=== PATIENT | female | born 1965 | race African-American/Black ===

== ENCOUNTER 2017-01-20 22:01 | Observation (INO) ==
[2017-01-20] MEDS ORDERED: Dextrose Gel 15 GM PO ONE ×2 (22:39→23:07)
[2017-01-20] MEDS ORDERED: *HR* Dextrose 50 % in Water (Syg) 50 ML SYRINGE IVP ONE (23:09)
[2017-01-20] MEDS ORDERED: Ondansetron 4 MG/2 ML VIAL IVP ONE (23:23)
[2017-01-21 00:33] LABS: Basophils % 0.3 %; Eosinophils # 0.1 K/mcL (0.0-0.6); Eosinophils % 0.7 %; Hematocrit 38.2 % (35.3-44.9); Hemoglobin 12.9 g/dL (11.5-15.4); Immature Granulocytes % 0.5 % (0-4); Lymphocytes # 1.9 K/mcL (0.6-4.6); Lymphocytes % 15.3 %; Mean Corpuscular HGB Conc 33.8 g/dL (31.6-35.5); Mean Corpuscular Hemoglobin 26.3 pg (28.0-33.3); Mean Corpuscular Volume 77.8 fL (83.0-100.0); Mean Platelet Volume 9.2 fL (9.4-12.4); Monocytes # 0.5 K/mcL (0.0-1.3); Monocytes % 4.3 %; Platelet Count 344 K/mcL (140-400); Red Blood Count 4.91 M/mcL (3.82-4.97); Red Cell Distribution Width 13.9 % (11.5-14.5); Segmented Neutrophils % 78.9 %
[2017-01-21 00:43] LABS: Alanine Aminotransferase 18 Units/L (0-55); Albumin 3.5 g/dL (3.5-5.0); Albumin/Globulin Ratio 0.8 (1.1-2.2); Alkaline Phosphatase 125 Units/L (38-126); Aspartate Amino Transferase 19 Units/L (5-34); BUN/Creatinine Ratio 12 (6-26); Bilirubin,Direct 0.2 mg/dL (0.0-0.5); Bilirubin,Indirect 0.2 mg/dL (0.0-1.2); Bilirubin,Total 0.4 mg/dL (0.2-1.2); Blood Urea Nitrogen 11 mg/dL (7-20); Calcium 10.3 mg/dL (8.6-10.8); Carbon Dioxide 25 mEq/L (19-29); Chloride 103 mEq/L (98-109); Globulin 4.4 g/dL (2.4-3.5); Glucose 89 mg/dL (70-99); Osmolality,Calculated 287 (280-300); Potassium 3.9 mEq/L (3.5-4.5); Sodium 139 mEq/L (136-145); Total Protein 7.9 g/dL (6.0-8.3); eGFR For African Americans > 60 (> 60); eGFR For Non-African Americans > 60 (> 60)
--- NOTE | 2017-01-21 01:52 | Emergency Department Note ---
Disposition Clinical Impression: Hypoglycemia Disposition: Admitted As Inpatient Condition: Fair Time of Disposition: 03:21 General Adult HPI - General Chief complaint: ED Altered Mental Status Stated complaint: low glucose Time Seen by Provider: 01/20/17 23:07 Source: patient Limitations: no limitations Nursing Notes Reviewed: Yes Vital Signs Reviewed: Yes - History of Present Illness HPI Narrative: Patient is a 51-year-old female who presents to [facility] ED with a chief complaint of low blood sugars. States they have been running low over the week. Her blood sugars normally run anywhere from 300-600. States she just saw a educator senior clinical earlier today and they had her start on glipizide. States she did not have any time to start her medication yet. Her last dose of insulin was 2 days ago. States she has been constantly trying to get her blood sugars back up. Denies any nausea, vomiting, fever or chills. No chest pain or shortness of breath. No abdominal pain. No problems with urination or bowel movements. She has just been generally weak due to all this blood sugar change. States when her blood sugar gets low like this, she has trouble thinking and forming her words. Onset (ago): day(s) Pain Scale: 0 Consistency: constant, Worsening Improves with: nothing Worsens with: nothing Associated symptoms: Reports: denies other symptoms. Denies: cough, fever/ chills, headaches, nausea/vomiting, shortness of breath Treatments Prior to Arrival: none - Related Data Home Medications Medication Instructions Recorded Confirmed Aspirin 81 mg PO DAILY 05/23/15 01/21/17 Atorvastatin Calcium [Lipitor] 20 mg PO HS 05/23/15 01/21/17 Citalopram [CeleXA] 40 mg PO BID 05/23/15 01/21/17 Dicyclomine HCl [Bentyl] 20 mg PO TID PRN 05/23/15 01/21/17 Gabapentin [Neurontin] 800 mg PO QID 05/23/15 01/21/17 Losartan Potassium [Cozaar] 100 mg PO BID 05/23/15 01/21/17 Pantoprazole Sodium [Protonix] 40 mg PO DAILY PRN 05/23/15 01/21/17 Pramipexole Di-HCl [Mirapex] 0.25 mg PO HS 05/23/15 01/21/17 Tramadol HCl [Ultram] 50 mg PO Q6HR PRN 05/23/15 01/21/17 Zolpidem Tartrate [Ambien] 10 mg PO HS 05/23/15 01/21/17 Previous Rx's Medication Instructions Recorded Hydrocodone/Acetaminophen [Magnolia 1 each PO Q4H PRN #10 tablet 06/15/15 5-325 Tablet] Benzonatate [Tessalon] 100 mg PO TID PRN #30 capsule 06/17/16 Ondansetron [Zofran] 8 mg PO Q8HR PRN #14 tablet 06/17/16 Allergies Allergy/AdvReac Type Severity Reaction Status Date / Time latex AdvReac Cramping Verified 01/20/17 22:06 of the Muscles metformin AdvReac Diarrhea Verified 01/20/17 22:06 Sulfa (Sulfonamide AdvReac Vomiting Verified 01/20/17 22:06 Antibiotics) sulfamethoxazole AdvReac Vomiting Verified 01/20/17 22:06 [From Bactrim] trimethoprim [From Bactrim] AdvReac Vomiting Verified 01/20/17 22:06 All systems ED: reviewed and negative except as stated. Past Medical History - Past Medical History Attestation: Yes The following information was validated with the patient. Source: patient Medical history: Reports: diabetes, hypertension Surgical history: Reports: non-contributory Psychiatric history: Reports: no psych history [employer] history: Reports: no [employer] history - Social History Smoking Status: Never smoker Smokeless Tobacco Status: No Alcohol use: Reports: none Drug use: Reports: none Physical Exam - General Limitations: no limitations General appearance: alert - Head Head exam: atraumatic, normocephalic, normal inspection - Eye Eye exam: Present: normal appearance, PERRL, EOMI - ENT ENT exam: normal exam, normal oropharynx, mucous membranes moist - Neck Neck exam: Present: normal inspection, full ROM, trachea midline - Chest Chest inspection: Present: normal inspection, symmetric chest wall rise - Respiratory Respiratory exam: Present: normal lung sounds bilaterally - Cardiovascular Cardiovascular exam: Present: regular rate, normal rhythm, normal heart sounds - Abdominal Exam Abdominal exam: Present: soft, Non-Tender. Absent: tenderness, distention, guarding, rebound, rigidity - Extremities Exam Extremities exam: Present: normal inspection, full ROM. Absent: tenderness, pedal edema - Back Exam Back exam: Present: normal inspection, full ROM. Absent: tenderness - Neurological Exam Neurological exam: Present: alert, oriented X3 - Psychiatric Psychiatric exam: Present: normal affect, normal mood - Skin Skin exam: Present: warm, dry, intact, normal color Course Course Narrative: Patient seen and examined. Low blood sugars. She has had multiple meals today and has not been able to keep her blood sugars up. States they have at the highest been at 1:30 over this last week. IV D50 and glucose gel ordered. Patient's blood sugar upon arrival was 107. After receiving the glucose, her blood sugar got into the 280s. However within a few hours, she was back down to 1:30. Started feeling weak and dizzy and with garbled speech again. Another glucose gel was ordered and she was started on D5 normal saline. I spoke with hospitalist about admission. Patient has been accepted for admission. Vital Signs Temperature 97.3 F L 01/20/17 22:03 Pulse Rate 96 01/20/17 22:03 Respiratory Rate 18 01/20/17 22:03 Blood Pressure 141/91 01/20/17 22:03 O2 Sat by Pulse Oximetry 95 01/20/17 22:03 Temperature 97.3 F L 01/20/17 22:03 Pulse Rate 88 01/21/17 02:57 Respiratory Rate 18 01/21/17 03:02 Blood Pressure 140/97 01/21/17 03:02 O2 Sat by Pulse Oximetry 95 01/21/17 02:57 Oxygen Delivery Oxygen Delivery Room Air Medical Decision Making - Medical Records Medical records reviewed: Yes I reviewed the patient's medical records. - Lab Data Lab results reviewed: Yes I reviewed the patient's lab results. Result diagrams: 01/20/17 22:35 01/20/17 22:35 Lab Results 01/20/17 01/20/17 01/20/17 Range/Units 22:06 22:35 22:35 WBC 12.7 H (4.3-11.1) K/mcL RBC 4.91 (3.82-4.97) M/mcL Hgb 12.9 (11.5-15.4) g/dL Hct 38.2 (35.3-44.9) % MCV 77.8 L (83.0-100.0) fL MCH 26.3 L (28.0-33.3) pg MCHC 33.8 (31.6-35.5) g/dL RDW 13.9 (11.5-14.5) % Plt Count 344 (140-400) K/mcL MPV 9.2 L (9.4-12.4) fL Immature Gran % 0.5 (0-4) % Seg Neutrophils % 78.9 % Lymphocytes % 15.3 % Monocytes % 4.3 % Eosinophils % 0.7 % Basophils % 0.3 % Neutrophils # 10.0 H (1.6-8.9) K/mcL Lymphocytes # 1.9 (0.6-4.6) K/mcL Monocytes # 0.5 (0.0-1.3) K/mcL Eosinophils # 0.1 (0.0-0.6) K/mcL Basophils # 0.0 (0.0-0.2) K/mcL Sodium 139 (136-145) mEq/L Potassium 3.9 (3.5-4.5) mEq/L Chloride 103 (98-109) mEq/L Carbon Dioxide 25 (19-29) mEq/L BUN 11 (7-20) mg/dL Creatinine 0.93 (0.57-1.11) mg/dL Est GFR ( Amer) > 60 (> 60) Est GFR (Non-Af Amer) > 60 (> 60) BUN/Creatinine Ratio 12 (6-26) Glucose 89 (70-99) mg/dL POC Glucose 106 H (58-89) Calculated Osmolality 287 (280-300) Calcium 10.3 (8.6-10.8) mg/dL Total Bilirubin 0.4 (0.2-1.2) mg/dL Direct Bilirubin 0.2 (0.0-0.5) mg/dL Indirect Bilirubin 0.2 (0.0-1.2) mg/dL AST 19 (5-34) Units/L ALT 18 (0-55) Units/L Alkaline Phosphatase 125 (38-126) Units/L Troponin I (0-0.03) ng/mL Serum Total Protein 7.9 (6.0-8.3) g/dL Albumin 3.5 (3.5-5.0) g/dL Globulin 4.4 H (2.4-3.5) g/dL Albumin/Globulin Ratio 0.8 L (1.1-2.2) TSH (0.350-4.840) mcIU/mL 01/20/17 01/20/17 01/20/17 Range/Units 22:35 22:35 23:49 WBC (4.3-11.1) K/mcL RBC (3.82-4.97) M/mcL Hgb (11.5-15.4) g/dL Hct (35.3-44.9) % MCV (83.0-100.0) fL MCH (28.0-33.3) pg MCHC (31.6-35.5) g/dL RDW (11.5-14.5) % Plt Count (140-400) K/mcL MPV (9.4-12.4) fL Immature Gran % (0-4) % Seg Neutrophils % % Lymphocytes % % Monocytes % % Eosinophils % % Basophils % % Neutrophils # (1.6-8.9) K/mcL Lymphocytes # (0.6-4.6) K/mcL Monocytes # (0.0-1.3) K/mcL Eosinophils # (0.0-0.6) K/mcL Basophils # (0.0-0.2) K/mcL Sodium (136-145) mEq/L Potassium (3.5-4.5) mEq/L Chloride (98-109) mEq/L Carbon Dioxide (19-29) mEq/L BUN (7-20) mg/dL Creatinine (0.57-1.11) mg/dL Est GFR ( Amer) (> 60) Est GFR (Non-Af Amer) (> 60) BUN/Creatinine Ratio (6-26) Glucose (70-99) mg/dL POC Glucose 278 H (58-89) Calculated Osmolality (280-300) Calcium (8.6-10.8) mg/dL Total Bilirubin (0.2-1.2) mg/dL Direct Bilirubin (0.0-0.5) mg/dL Indirect Bilirubin (0.0-1.2) mg/dL AST (5-34) Units/L ALT (0-55) Units/L Alkaline Phosphatase (38-126) Units/L Troponin I 0.00 (0-0.03) ng/mL Serum Total Protein (6.0-8.3) g/dL Albumin (3.5-5.0) g/dL Globulin (2.4-3.5) g/dL Albumin/Globulin Ratio (1.1-2.2) TSH 1.930 (0.350-4.840) mcIU/mL 01/21/17 Range/Units 01:59 WBC (4.3-11.1) K/mcL RBC (3.82-4.97) M/mcL Hgb (11.5-15.4) g/dL Hct (35.3-44.9) % MCV (83.0-100.0) fL MCH (28.0-33.3) pg MCHC (31.6-35.5) g/dL RDW (11.5-14.5) % Plt Count (140-400) K/mcL MPV (9.4-12.4) fL Immature Gran % (0-4) % Seg Neutrophils % % Lymphocytes % % Monocytes % % Eosinophils % % Basophils % % Neutrophils # (1.6-8.9) K/mcL Lymphocytes # (0.6-4.6) K/mcL Monocytes # (0.0-1.3) K/mcL Eosinophils # (0.0-0.6) K/mcL Basophils # (0.0-0.2) K/mcL Sodium (136-145) mEq/L Potassium (3.5-4.5) mEq/L Chloride (98-109) mEq/L Carbon Dioxide (19-29) mEq/L BUN (7-20) mg/dL Creatinine (0.57-1.11) mg/dL Est GFR ( Amer) (> 60) Est GFR (Non-Af Amer) (> 60) BUN/Creatinine Ratio (6-26) Glucose (70-99) mg/dL POC Glucose 138 H (58-89) Calculated Osmolality (280-300) Calcium (8.6-10.8) mg/dL Total Bilirubin (0.2-1.2) mg/dL Direct Bilirubin (0.0-0.5) mg/dL Indirect Bilirubin (0.0-1.2) mg/dL AST (5-34) Units/L ALT (0-55) Units/L Alkaline Phosphatase (38-126) Units/L Troponin I (0-0.03) ng/mL Serum Total Protein (6.0-8.3) g/dL Albumin (3.5-5.0) g/dL Globulin (2.4-3.5) g/dL Albumin/Globulin Ratio (1.1-2.2) TSH (0.350-4.840) mcIU/mL - Radiology Data Radiology results reviewed: Yes I reviewed the patient's radiology results. Attestation Statement - Attestation Attestation: I, Kai Babcock MD, personally performed a history and physical exam of the patient and discussed their management with the resident. I reviewed the resident's note and agree with the documented findings, medical decision making , and plan of care. 51-year-old female presents to the emergency department with a complaint of hypoglycemia. Patient is insulin-dependent diabetic and states that for the past week her sugars have been dropping too low. They did recently increase her insulin however a few days ago she decrease it back to the original dosage. Patient states her blood sugar normally runs in the 300s and 400s and when he gets down into the 100s she gets symptomatic. She has had a few episodes over the past several days where he got down to 80s and 60s. When her sugar gets low she states that her speech gets slow and slurred and she gets weak and confused and feels lightheaded and dizzy. On examination patient is a well-developed obese female in no acute distress. She is alert and oriented 3. There is no cyanosis or diaphoresis. Breath sounds are clear and equal bilaterally. Heart regular rate and rhythm. Abdomen is soft and nontender with normal bowel sounds. Labs reviewed. Patient observed in the department for several hours and her blood sugar continued to keep dropping. The hospitalist, Dr. Vaughan, was consulted and accepted admission of the patient.
[2017-01-21] MEDS ORDERED: D5% in 0.9% NACL 1,000 ML IVC SCH (02:00)
[2017-01-21] MEDS ORDERED: Dexamethasone 10 MG/ML VIAL IVP ONE (02:49)
[2017-01-21] MEDS ORDERED: traMADol 50 MG TABLET PO PRN (03:13)
[2017-01-21] MEDS ORDERED: Benzonatate 100 MG CAPSULE PO PRN (03:13)
[2017-01-21] MEDS ORDERED: Naloxone 0.4 MG/ML INJ IVP PRN (03:20)
[2017-01-21] MEDS ORDERED: *HR* OxyCODONE Immed Rel 5 MG TABLET PO PRN (03:20)
[2017-01-21] MEDS ORDERED: *HR* Promethazine 25 MG/ML VIAL IVP PRN (03:20)
[2017-01-21] MEDS ORDERED: D5% in Water 1,000 ML IVC PRN (03:20)
[2017-01-21] MEDS ORDERED: Dextrose Gel 15 GM PO PRN (03:20)
[2017-01-21] MEDS ORDERED: *HR* Dextrose 50 % in Water (Syg) 50 ML SYRINGE IVP PRN (03:20)
[2017-01-21] MEDS ORDERED: Acetaminophen 325 MG TABLET PO PRN (03:20)
[2017-01-21] MEDS ORDERED: *HR* Morphine 2 MG/ML SYRINGE IVP PRN (03:20)
--- NOTE | 2017-01-21 03:34 | Internal Med History&Physical ---
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 (2) Hypoglycemic encephalopathy Current visit: Yes Status: Acute . (3) Multiple episodes of hypoglycemia Current visit: Yes Status: Acute . Internal Medicine - H&P: HPI Chief complaint: Low blood sugars and altered mental status Admitted From: Emergency Dept Plans for Post Hospital Care: Home History of present illness: Ms. Prakash is a 51 year old female admitted to [facility] via the emergency department when she presented with reports of alteration in mental status persistently low blood sugar measurements for the last week or more. Patient has a history of insulin-dependent type 2 diabetes mellitus with associated insulin resistance which had required high doses of long-acting and short acting insulin therapy. In spite of this normal blood sugar trends ranged between 300-600 mg percent she saw her in service educator about the day prior to her presentation to the ED to discuss her problematic blood sugar measurements and symptoms. There is discussion given a possible transition her to oral hypoglycemic therapy and gradually back off from the high-dose insulin so she was receiving. A prescription for glipizide was given to her. Never started. Her last official dose of insulin was 2 days prior to her presentation to the emergency department. Her trends bottomed out as low as 50 mg percent with severe alteration in mental status with slurring of speech, disequilibrium, and delirium. She denied any overt loss of vision swallowing difficulties unilateral weakness loss of bowel or bladder function. She denied any chest nausea vomiting fever chills, with the symptoms. Denied dysuria hematuria pyuria constipation or diarrhea. She does experience a feeling of right abdominal discomfort, that with her current symptoms of hypoglycemia. She denies constipation her stools normally are loose and however in spite of increased oral intake to try to compensate for low blood sugars she experienced a sensation of abdominal bloating, generalized weakness impairment in her thinking and forming of words and unsteadiness of gait. Patient had multiple meals the day of presentation but was unable to keep her blood sugars up. The highest blood sugar measurement obtained by her over the last week was 130 mg percent. In the emergency department the patient received intravenous D50 and glucose gel. Her blood sugar upon arrival to the ED was 107 and era to 280 milligram percent of her within the 2 hours of emergency room evaluation it had declined once again to 130 mg percent. As it declined as she began once again to feel sensations of generalized weakness dizziness and garbled speech. Vital signs are stableafebrile. There is no demonstrable orthostatics as of. Patient was not hypoxic. CBC normal except WBC of 12.7. MCV 77.8. MCH 26.3. Platelets 344,000. Differential showed an increase in neutrophils. Comprehensive metabolic panel normal except for a blood sugar of 106. BUN 11 creatinine 0.93. Hepatic function normal. Troponin 0.00. TSH 1.93 EKG demonstrated normal sinus rhythm with no acute ischemic changes. Workup and treatment progress comprehensively. Attention will be directed to rule out the hyperinsulinism secondary to endogenous as well as exogenous causes. Potential for adrenal insufficiency with poor glucose response is also possible given the recent courses of oral prednisone therapy for upper respiratory infectious symptoms and persisting cough for last several months. She denies any significant indiscretions as relates to medications diet or recreational events. 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 She is status post colectomy, cholecystectomy, hysterectomy. The patient was visited and interviewed and examined. Acutely encephalopathic with evident mild delirium due to rapid cycling of blood glucose measurements, the patient is responsive appropriately. Cumulative laboratory and radiographic data base will be considered and discussed. Pertinent ancillary medical records including ECW and PCI documentation when available was reviewed and considered. Given the patient's presenting concerns, past medical history, clinical findings and symptoms, she is admitted at this time will undergo further evaluation and disposition. Orders were written as per Computerized physician order packer system.......................................................................... .................... Consultative opinion will be sought as clinical circumstances justify. Pain management needs will be addressed. Laboratory /radiographic data base will be updated as appropriate. Studies include: Cultures blood urine, proinsulin, insulin Ab, beta hydroxybut, UA, prolactin, cpk, coags, cardiac injury panel, BNP, amylase, lipase, metabolic and hematologic panel, magnesium, phosphorus, ionized calcium, thyroid panel, lipid profile, A1c C-peptide, CRP, sedimentation rate, random cortisol, UDS, blood gas, lactic acid, B12, folate, iron profile, serologies, etc. Precautions: Aspiration, fall, seizure, delirium protocol/surveillance initiated. Telemetry with continuous hemodynamic monitoring and pulse oximetry initiated. Orthostatic vital signs. Empiric antibiotic coverage: pending diagnostics/culture data. Special studies: CT head/abd/pelvis, MRCP, chest x-ray, telemetry, EKG. Pulmonary toilet: Incentive spirometry. PRN: aerosol bronchodilator, mucolytic, antitussive. Supplemental oxygen. Corticosteroid therapyPRN. CPAP/BiPAP supplemental oxygen delivery PRN. Aerosol Mucomyst therapy PRN Fluid and electrolyte repletion efforts will proceed. Careful attention to fluid balance and renal recovery will be emphasized. Avoidance of nephrotoxic exposure and adverse drug drug interaction in the setting of impaired renal function will be monitored closely. Acute coronary syndrome protocol/surveillance initiated. DVT and PUD prophylaxis initiated: PPI therapy, intermittent pneumatic cuffs/ TEDs. Subcutaneous heparin/Lovenox. Early ambulation will be encouraged. Immunization updates recommended. Influenza and pneumococcal vaccinations as part of ongoing preventative healthcare recommendations strongly recommended. Smoking cessation counseling briefly addressed. Patient is a nonsmoker. Advanced care directive discussion briefly addressed. Patient does not declare any healthcare restrictions at this time. Cardiovascular risk appraisal and cardiovascular risk reduction efforts will be emphasized. Physical /occupational therapy consulted to evaluate patient's functional capacity and progressive mobility as her circumstances permit. Intravenous D50 and intravenous glucagon administration. Initiation of intravenous D10 infusion. Strict input and output daily weight. Close monitoring of fluid and electrolyte balance as well as metabolic acid-base events. Sliding scale /basal, nutritional insulin coverage withheld and stabilization of glucose pending. ADA dietary restraint and scheduled and as-needed fingerstick glucose assessments were initiated. Nutrition/diabetes education counseling may be considered as circumstances justify. Outpatient medication schedules will be reviewed, confirmed and facilitated as appropriate. Reconciliation of home treatments including adjustments, substitutions and reintroduction into the treatment regimen will address necessary maintenance therapies for chronic pre-existing medical conditions. Plan of care has been reviewed and discussed in detail with the patient. Questions addressed. Hospital course dictated by clinical findings, treatment response and potential consultative interventions. Patient is a risk for further acute clinical decline due to her findings, chief complaints and comorbid conditions. Condition is serious. Prognosis is guarded. CODE STATUS is full. Past Med Surg Social Fam HX - Past Medical History Source: old records reviewed Medical history: arthritis, asthma, diabetes, GERD (Gastroparesis. Man's esophagus. Diverticulosis coli.), hyperlipidemia, hypertension, renal disease ( CKD. Iron deficiency anemia. Urinary retention. Proteinuria.), other ( Functional abdominal pain. Splenomegaly. Chronic musculoskeletal pain. Restless leg syndrome. Diabetic peripheral neuropathy. Irritable bowel syndrome.) Psychiatric history: anxiety, depression, other - Past Surgical History Surgical History: appendectomy, cholecystectomy, hysterectomy, SONDRA/BSO, other - Social History Smoking Status: Never smoker Smokeless Tobacco Status: No Alcohol use: none Drug use: none Occupational status: retired Current living situation: Home, With Family Activity Level: Independent ambulation, Mostly sedentary Recent Out of Country Travel Within the Last 8 Weeks: No Exposure or Possible Exposure to Illness During Travel: No - Family History Mother Living Status: Hx Family Cardiac Disorders: Yes Hx Family Endocrine Disorder: Yes (diabetes) Father Living Status: Hx Family Cardiac Disorders: Yes (MYOCARDIAL INFARCTION.) Brother Age: 56 Hx Family Cardiac Disorders: Yes Hx Family Genitourinary Disorders: Yes Sister Living Status: Age at : 56 Internal Medicine - H&P: Meds Aspirin 81 mg PO DAILY 05/23/15 [History] Atorvastatin Calcium [Lipitor] 20 mg PO HS 05/23/15 [History] Citalopram [CeleXA] 40 mg PO BID 05/23/15 [History] Dicyclomine HCl [Bentyl] 20 mg PO TID PRN 05/23/15 [History] Gabapentin [Neurontin] 800 mg PO QID 05/23/15 [History] Losartan Potassium [Cozaar] 100 mg PO BID 05/23/15 [History] Pantoprazole Sodium [Protonix] 40 mg PO DAILY PRN 05/23/15 [History] Pramipexole Di-HCl [Mirapex] 0.25 mg PO HS 05/23/15 [History] Tramadol HCl [Ultram] 50 mg PO Q6HR PRN 05/23/15 [History] Zolpidem Tartrate [Ambien] 10 mg PO HS 05/23/15 [History] Hydrocodone/Acetaminophen [[place] 5-325 Tablet] 1 each PO Q4H PRN #10 tablet [Rx] Benzonatate [Tessalon] 100 mg PO TID PRN #30 capsule 06/17/16 [Rx] Ondansetron [Zofran] 8 mg PO Q8HR PRN #14 tablet 06/17/16 [Rx] Allergies latex Adverse Reaction (Verified 01/20/17 22:06) Cramping of the Muscles metformin Adverse Reaction (Verified 01/20/17 22:06) Diarrhea Sulfa (Sulfonamide Antibiotics) Adverse Reaction (Verified 01/20/17 22:06) Vomiting sulfamethoxazole [From Bactrim] Adverse Reaction (Verified 01/20/17 22:06) Vomiting trimethoprim [From Bactrim] Adverse Reaction (Verified 01/20/17 22:06) Vomiting All Systems PM: A 10-system review of systems was performed and is negative for pertinent findings except as documented above in the HPI. Allergies Allergy/AdvReac Type Severity Reaction Status Date / Time latex AdvReac Cramping Verified 01/20/17 22:06 of the Muscles metformin AdvReac Diarrhea Verified 01/20/17 22:06 Sulfa (Sulfonamide AdvReac Vomiting Verified 01/20/17 22:06 Antibiotics) sulfamethoxazole AdvReac Vomiting Verified 01/20/17 22:06 [From Bactrim] trimethoprim [From Bactrim] AdvReac Vomiting Verified 01/20/17 22:06 Patient Problems (Last Updated 01/21/17 @ 03:34 by Dean Vaughan MD) Cough (Acute Medical) R05 Chest pain (Acute Medical) R07.9 Diabetes (Acute Medical) E11.9 Hyperlipidemia (Acute Medical) E78.5 Hypertension (Acute Medical) I10 Obesity (Chronic Medical) E66.9 Abnormal EKG (Acute Medical) R94.31 Asthma exacerbation (Acute Medical) J45.901 Hypoglycemia (Acute Medical) E16.2 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 (Acute Medical) E16.1 Hypoglycemic encephalopathy (Acute Medical) E16.2 Multiple episodes of hypoglycemia (Acute Medical) E16.2 Bronchitis (Inactive Medical) Bronchitis (Inactive Medical) Bronchitis, acute (Inactive Medical) J20.9 Bunion of great toe of left foot (Inactive Medical) Dehydration (Inactive Medical) Head pain (Inactive Medical) Hyperglycemia (Inactive Medical) Injury of foot, left (Inactive Medical) Nausea (Inactive Medical) R11.0 Pharyngitis (Inactive Medical) J02.9 UTI (urinary tract infection) (Inactive Medical) N39.0 - Constitutional Constitutional: as per HPI, fatigue, falls, lethargy, malaise, weakness, other, no chills, no fever(s), no night sweats - EENT Eyes: as per HPI, blurry vision, no change in vision, no discharge, no pain, no photophobia Ears: as per HPI, no ear discharge, no ear pain, no tinnitus Nose, mouth and throat: as per HPI, other, no dysphagia, no nasal discharge, no neck pain, no sore throat - Cardiovascular Cardiovascular ROS IM: as per HPI, lightheadedness, syncope, other, no chest pain, no diaphoresis, no dyspnea, no palpitations - Respiratory Respiratory: as per HPI, no cough, no dyspnea, no wheezing, no excessive phlegm production - Gastrointestinal Gastrointestinal: as per HPI, abdominal pain, bloating, loose stools, other, no diarrhea, no hematemesis, no hematochezia, no melena, no nausea, no vomiting - Genitourinary Genitourinary: as per HPI, no change in urinary stream, no dysuria, no flank pain, no hematuria - Musculoskeletal Musculoskeletal ROS IM: as per HPI, arthralgias, myalgias, no numbness, no tingling - Integumentary Integumentary IM: as per HPI, no rash, no unusual bruising - Neurological Neurological ROS: as per HPI, abnormal speech, confusion, disequilibrium, dizziness, frequent falls, memory loss, weakness, other, no convulsions, no focal weakness, no numbness, no tingling, no tremor(s) - Psychiatric Psychiatric: as per HPI - Endocrine Endocrine IM: as per HPI, fatigue, other - Hematologic/Lymphatic Hematologic/Lymphatic: as per HPI, no easy bruising - Allergic/Immunologic Allergic/Immunologic: as per HPI - Constitutional Vitals: Temp Pulse Resp BP Pulse Ox 97.3 F L 88 18 140/97 95 01/20/17 22:03 01/21/17 02:57 01/21/17 03:02 01/21/17 03:02 01/21/17 02:57 Vital Signs Temp Pulse Resp BP Pulse Ox 01/21/17 03:02 18 140/97 01/21/17 02:57 88 20 133/93 95 01/21/17 02:33 91 20 153/97 95 01/21/17 00:48 92 18 143/92 99 01/20/17 23:15 89 24 127/89 95 01/20/17 22:03 97.3 F L 96 18 141/91 95 Intake and Output 01/20/17 01/20/17 01/21/17 15:59 23:59 07:59 Other: Weight 113.398 kg Blood Glucose* 278 138 General appearance: Present: mild distress, A&O X 3, morbidly obese, answers questions appropriately Exam: Lethargic. Poorly attentive due to primary condition. Garbled to slurring of speech. Difficulty with concentration c/w delirium. - Head Head exam: Present: atraumatic, normal inspection, normocephalic - Eye Eye exam: Present: EOMI, PERRL, conjuntiva pink, sclera anicteric Pupils: Present: normal accommodation, PERRL - ENT ENT exam: Present: mucous membranes moist, normal oropharynx - Neck Neck exam general surgery: Present: full ROM, supple, trachea midline. Absent: lymphadenopathy, nuchal rigidity - Respiratory Respiratory exam: Present: decreased breath sounds, CTAB. Absent: accessory muscle use, rales, rhonchi, wheezes - Cardiovascular Cardiovascular exam: Present: distant heart sounds, RRR, +S1, +S2. Absent: diastolic murmur, gallop, rubs, systolic murmur - GI/Abdominal GI/Abdominal exam: Present: diminished bowel sounds, distended, guarding, soft, tenderness (RUQ > RLQ tenderness.), no peritoneal signs - Extremities Exam Extremities exam: Present: full ROM, warm, radial pulses palpable and symetrical. Absent: calf tenderness, cyanotic, pedal edema - Neurological Exam Neurological exam: Present: alert, altered, CN II-XII intact, oriented X3, no focal deficits. Absent: pronater drift, facial droop, speech deficit - Expanded Neurological Exam Neurological exam expanded: Present: ataxia, inattentive, protecting the airway. Absent: expressive aphasia, receptive aphasia Patient oriented to: Present: person, place, time Speech: Present: garbled, slurred Cranial Nerves: EOM's intact PM: Normal, gag reflex PM: Normal, nystagmus PM: Normal, tongue deviation PM: Normal Coma Scale Eye Opening: Spontaneous Coma Scale Motor Response: Obeys Commands Coma Scale Verbal Response: Inappropriate Coma Scale Total: 13 - Psychiatric Psychiatric exam: Present: normal affect, normal mood - Skin Skin exam: Present: dry, intact, warm. Absent: petechiae, rash, urticaria, vesicles Internal Med - H&P Results - Labs CBC & Chem 7: 01/20/17 22:35 01/20/17 22:35 Labs: Vital Signs Temp Pulse Resp BP Pulse Ox 01/21/17 03:02 18 140/97 01/21/17 02:57 88 20 133/93 95 01/21/17 02:33 91 20 153/97 95 01/21/17 00:48 92 18 143/92 99 01/20/17 23:15 89 24 127/89 95 01/20/17 22:03 97.3 F L 96 18 141/91 95 Intake and Output 01/20/17 01/20/17 01/21/17 15:59 23:59 07:59 Other: Weight 113.398 kg Blood Glucose* 278 138 Abnormal lab results WBC 12.7 K/mcL (4.3-11.1) H 01/20/17 22:35 MCV 77.8 fL (83.0-100.0) L 01/20/17 22:35 MCH 26.3 pg (28.0-33.3) L 01/20/17 22:35 MPV 9.2 fL (9.4-12.4) L 01/20/17 22:35 Neutrophils # 10.0 K/mcL (1.6-8.9) H 01/20/17 22:35 POC Glucose 138 (58-89) H 01/21/17 01:59 Globulin 4.4 g/dL (2.4-3.5) H 01/20/17 22:35 Albumin/Globulin Ratio 0.8 (1.1-2.2) L 01/20/17 22:35 Laboratory Last Values WBC 12.7 K/mcL (4.3-11.1) H 01/20/17 22:35 RBC 4.91 M/mcL (3.82-4.97) 01/20/17 22:35 Hgb 12.9 g/dL (11.5-15.4) 01/20/17 22:35 Hct 38.2 % (35.3-44.9) 01/20/17 22: MCV 77.8 fL (83.0-100.0) L 01/20/17 22:35 MCH 26.3 pg (28.0-33.3) L 01/20/17 22:35 MCHC 33.8 g/dL (31.6-35.5) 01/20/17 22:35 RDW 13.9 % (11.5-14.5) 01/20/17 22:35 Plt Count 344 K/mcL (140-400) 01/20/17 22:35 MPV 9.2 fL (9.4-12.4) L 01/20/17 22:35 Immature Gran % 0.5 % (0-4) 01/20/17 22: Seg Neutrophils % 78.9 % 01/20/17 22:35 Lymphocytes % 15.3 % 01/20/17:35 Monocytes % 4.3 % 01/20/17:35 Eosinophils % 0.7 % 01/20/17 22:35 Basophils % 0.3 % 01/20/17 22:35 Neutrophils # 10.0 K/mcL (1.6-8.9) H 01/20/17 22:35 Lymphocytes # 1.9 K/mcL (0.6-4.6) 01/20/17 22:35 Monocytes # 0.5 K/mcL (0.0-1.3) 01/20/17 22:35 Eosinophils # 0.1 K/mcL (0.0-0.6) 01/20/17: Basophils # 0.0 K/mcL (0.0-0.2) 01/20/17 22:35 Sodium 139 mEq/L (136-145) 01/20/17 22:35 Potassium 3.9 mEq/L (3.5-4.5) 01/20/17 22:35 Chloride 103 mEq/L (98-109) 01/20/17 22:35 Carbon Dioxide 25 mEq/L (19-29) 01/20/17 22:35 BUN 11 mg/dL (7-20) 01/20/17 22:35 Creatinine 0.93 mg/dL (0.57-1.11) 01/20/17 22:35 Est GFR ( Amer) > 60 (> 60) 01/20/17 22:35 Est GFR (Non-Af Amer) > 60 (> 60) 01/20/17 22:35 BUN/Creatinine Ratio 12 (6-26) 01/20/17 22:35 Glucose 89 mg/dL (70-99) 01/20/17 22:35 POC Glucose 138 (58-89) H 01/21/17 01:59 Calculated Osmolality 287 (280-300) 01/20/17 22:35 Calcium 10.3 mg/dL (8.6-10.8) 01/20/17 22:35 Total Bilirubin 0.4 mg/dL (0.2-1.2) 01/20/17 22:35 Direct Bilirubin 0.2 mg/dL (0.0-0.5) 01/20/17 22:35 Indirect Bilirubin 0.2 mg/dL (0.0-1.2) 01/20/17 22:35 AST 19 Units/L (5-34) 01/20/17 22:35 ALT 18 Units/L (0-55) 01/20/17 22:35 Alkaline Phosphatase 125 Units/L (38-126) 01/20/17 22:35 Troponin I 0.00 ng/mL (0-0.03) 01/20/17 22:35 Serum Total Protein 7.9 g/dL (6.0-8.3) 01/20/17 22:35 Albumin 3.5 g/dL (3.5-5.0) 01/20/17 22:35 Globulin 4.4 g/dL (2.4-3.5) H 01/20/17 22:35 Albumin/Globulin Ratio 0.8 (1.1-2.2) L 01/20/17 22:35 TSH 1.930 mcIU/mL (0.350-4.840) 01/20/17 22:35 - Attending Attestation Allergies latex Adverse Reaction (Verified 01/20/17 22:06) Cramping of the Muscles metformin Adverse Reaction (Verified 01/20/17 22:06) Diarrhea Sulfa (Sulfonamide Antibiotics) Adverse Reaction (Verified 01/20/17 22:06) Vomiting sulfamethoxazole [From Bactrim] Adverse Reaction (Verified 01/20/17 22:06) Vomiting trimethoprim [From Bactrim] Adverse Reaction (Verified 01/20/17 22:06) Vomiting Home Medications Medication Instructions Recorded Confirmed Type Aspirin 81 mg PO DAILY 05/23/15 01/21/17 History Atorvastatin Calcium [Lipitor] 20 mg PO HS 05/23/15 01/21/17 History Citalopram [CeleXA] 40 mg PO BID 05/23/15 01/21/17 History Dicyclomine HCl [Bentyl] 20 mg PO TID PRN 05/23/15 01/21/17 History Gabapentin [Neurontin] 800 mg PO QID 05/23/15 01/21/17 History Losartan Potassium [Cozaar] 100 mg PO BID 05/23/15 01/21/17 History Pantoprazole Sodium [Protonix] 40 mg PO DAILY PRN 05/23/15 01/21/17 History Pramipexole Di-HCl [Mirapex] 0.25 mg PO 05/23/15 01/21/17 History Tramadol HCl [Ultram] 50 mg PO Q6HR PRN 05/23/15 01/21/17 History Zolpidem Tartrate [Ambien] 10 mg PO 05/23/15 01/21/17 History I & O 01/18/17 01/19/17 01/20/17 01/21/17 23:59 23:59 23:59 23:59 Weight 113.398 kg Other: Blood Glucose* 278 138 Medications Acetaminophen (Tylenol) 650 mg PO Q6HR PRN PRN Reason: Mild Pain (1-3) Stop: 07/23/17 03:21 Aspirin (Aspirin) 81 mg PO DAILY [facility] Stop: 07/23/17 09:01 Benzonatate (Tessalon) 100 mg PO TID PRN PRN Reason: Cough Stop: 07/23/17 03:14 Citalopram Hydrobromide (Celexa) 40 mg PO BID [facility] Stop: 07/23/17 09:01 Dextrose/Water (Dextrose 50% (Syg)) 25 ml IVP AD PRN PRN Reason: Hypoglycemia Stop: 07/23/17 03:21 Docusate Sodium (Colace) 100 mg PO BID PRN PRN Reason: Constipation Stop: 07/23/17 03:21 Gabapentin (Neurontin) 800 mg PO QID [facility] Stop: 07/23/17 09:01 Glucagon (Glucagen) 1 mg IM ONCE PRN PRN Reason: Hypoglycemia Stop: 07/23/17 03:21 Glucose (Gluctose) 30 gm PO ONCE PRN PRN Reason: Hypoglycemia Stop: 07/23/17 03:21 Dextrose (Dextrose 5%) 1,000 mls @ 100 mls/hr IVC .Q10H PRN PRN Reason: HYPOGLYCEMIA Stop: 07/23/17 03:21 Insulin Human Lispro (Humalog) 0 units SQ HS [facility] PRN Reason: Protocol Stop: 07/23/17 21:01 Insulin Human Lispro (Humalog) 0 units SQ TIDAC [facility] PRN Reason: Protocol Stop: 07/23/17 07:31 Losartan Potassium (Cozaar) 100 mg PO DAILY [facility] PRN Reason: Protocol Stop: 07/23/17 09:01 Morphine Sulfate (Morphine Sulfate) 2 mg IVP Q4HR PRN PRN Reason: Severe Pain (7-10) Stop: 07/23/17 03:21 Naloxone HCl (Narcan) 0.4 mg IVP Q2MIN PRN PRN Reason: Opioid Reversal Stop: 07/23/17 03:21 Oxycodone HCl (Roxicodone) 5 mg PO Q6HR PRN PRN Reason: Moderate Pain (4-6) Stop: 07/23/17 03:21 Pramipexole Dihydrochloride (Mirapex) 0.25 mg PO HS [facility] Stop: 07/23/17 21:01 Promethazine HCl (Phenergan) 12.5 mg IVP Q6HR PRN PRN Reason: Nausea And Vomiting Stop: 07/23/17 03:21 Simvastatin (Zocor) 40 mg PO HS [facility] Stop: 07/23/17 21:01 Tramadol HCl (Ultram) 50 mg PO Q6HR PRN PRN Reason: Pain Stop: 07/23/17 03:14 Zolpidem Tartrate (Ambien) 10 mg PO HS [facility] PRN Reason: Protocol Stop: 07/23/17 21:01 Discontinued Medications Dexamethasone (Decadron) 10 mg IVP DAILY [facility] Stop: 07/23/17 09:01 Dexamethasone (Decadron) 10 mg IVP ONCE ONE Stop: 01/21/17 02:50 Last Admin: 01/21/17 02:53 Dose: 10 mg Dextrose/Water (Dextrose 50% (Syg)) 50 ml IVP NOW ONE Stop: 01/20/17 23:10 Last Admin: 01/20/17 23:16 Dose: 50 ml Glucose (Gluctose) Confirm Administered Dose 15 gm PO .STK-MED ONE Stop: 01/20/17 22:40 Last Admin: 01/20/17 22:43 Dose: 15 gm Glucose (Gluctose) 15 gm PO ONCE ONE Stop: 01/20/17 23:08 Last Admin: 01/20/17 23:10 Dose: Dextrose/Sodium Chloride (D5% And 0.9% Nacl 1000 Ml) 1,000 mls @ 125 mls/hr IVC .Q8H [facility] Stop: 07/23/17 02:01 Last Admin: 01/21/17 02:42 Dose: 125 mls/hr Ondansetron HCl (Zofran) 4 mg IVP ONCE ONE PRN Reason: Protocol Stop: 01/20/17 23:24 Last Admin: 01/20/17 23:40 Dose: 4 mg Orders 01/20/17 22:06 POC Glucometer Test [POC] Routine 01/20/17 22:39 Dextrose Gel [Gluctose] 15 gm PO .STK-MED ONE 01/20/17 23:07 Dextrose Gel [Gluctose] 15 gm PO ONCE ONE 01/20/17 23:09 IV insertion - peripheral [RC] NOW Dextrose 50 % in Water (Syg) [Dextrose 50% (Syg)] 50 ml IVP NOW ONE 01/20/17 23:23 Ondansetron [Zofran] 4 mg IVP ONCE ONE 01/20/17 23:49 POC Glucometer Test [POC] Routine 01/21/17 00:11 12 lead ECG assessment [RC] NOW Cardiac monitoring [RC] .ONCE Glucose, blood poc measurement [RC] .ONCE NPO (Nursing Order) [RC] NOW Saline lock [RC] .ONCE Vital Signs Assessment [RC] PROTOCOL Basic Metabolic Panel Stat Comment: Specimen: Send someone from the department to collect Complete Blood Count [HEME] Stat Comment: Specimen: Send someone from the department to collect Hepatic Panel Stat Comment: Specimen: Send someone from the department to collect Troponin I Stat Comment: Specimen: Send someone from the department to collect ECG 12 lead ECG [ECG] Stat Mode Of Transportation: Ambulatory Reason For Exam: altered mental status Exam Performed At:: [facility] 01/21/17 00:12 Thyroid Stimulating Hormone Stat Comment: Specimen: Send someone from the department to collect 01/21/17 01:56 POC Glucometer Test [POC] Stat 01/21/17 01:59 POC Glucometer Test [POC] Routine 01/21/17 02:00 D5% in 0.9% NACL [D5% And 0.9% Nacl 1000 Ml] 1,000 ml IVC 125 mls/hr 01/21/17 02:[address] Stat Comment: Reason for Visit: persistent hypoglycemia 01/21/17 02:49 Dexamethasone [Decadron] 10 mg IVP ONCE ONE 01/21/17 03:08 Apply anti-embolic stockings [RC] .NOW Aspiration precautions [RC] .WITH MEALS Falls precautions (Francis-Douglass [RC] ONCE Incentive Spirometry [RC] .6 TIMES PER HR WHILE AWAKE Seizure precautions [RC] .ONCE Amylase Routine Specimen: Send someone from the department to collect Comment: C-Reactive Protein Routine Specimen: Send someone from the department to collect Comment: Cortisol Fr,Ur Random or 24hr Routine Specimen: Pre-Collection Label Comment: Cortisol Fr Type: Random Urine Cortisol,Random Stat Specimen: Send someone from the department to collect Comment: Creatine Kinase Routine Specimen: Send someone from the department to collect Comment: Drug Screen, Urine [UCHEM] Stat Specimen: Pre-Collection Label Comment: Hgb A1C Stat Specimen: Send someone from the department to collect Comment: Insulin Antibody Routine Specimen: Send someone from the department to collect Comment: Insulin, Total and Free Stat Specimen: Send someone from the department to collect Comment: Lactate Dehydrogenase Routine Specimen: Send someone from the department to collect Comment: Lactic Acid ([facility] Only) Stat Specimen: Send someone from the department to collect Comment: Lipase Routine Specimen: Send someone from the department to collect Comment: Prolactin Stat Specimen: Send someone from the department to collect Comment: 01/21/17 03:13 Benzonatate [Tessalon] 100 mg PO TID PRN TraMADol [Ultram] 50 mg PO Q6HR PRN 01/21/17 03:20 Glucose, blood poc measurement [RC] ACHS Vital Signs Assessment [RC] Q4H Consult to Shuttler Car [CONS] Routine Comment: @ 100 MLS/HR [prn Hypoglycemia] D5% in Water [Dextrose 5%] 1,000 ml IVC 100 mls/ hr Acetaminophen [Tylenol] 650 mg PO Q6HR PRN Dextrose 50 % in Water (Syg) [Dextrose 50% (Syg)] 25 ml IVP AD PRN Dextrose Gel [Gluctose] 30 gm PO ONCE PRN Docusate [Colace] 100 mg PO BID PRN Glucagon, Human Recombinant [GlucaGen] 1 mg IM ONCE PRN Morphine [Morphine Sulfate] 2 mg IVP Q4HR PRN Naloxone [Narcan] 0.4 mg IVP Q2MIN PRN OxyCODONE Immed Rel [Roxicodone] 5 mg PO Q6HR PRN Promethazine [Phenergan] 12.5 mg IVP Q6HR PRN Resuscitation Status: Active [RES] Routine Resuscitation Status: Full Code Comment: 01/21/17 03:21 Bed rest [RC] .CONT Physician Instructions: Bed rest w/bathroom privileges [RC] .PRN Cardiac Monitoring Med/Surg [RC] .CONT Telemetry Reason: Stroke/Syncope/TIA Continuous pulse oximetry [RC] CONT Comment: Hypoglycemia Treatment Orders [RC] .once Measure intake and output [RC] QSHIFT Measure weight [RC] DAILY Notify provider [RC] once Physician Instructions: Peripheral IV [RC] CONT Placement to Observation Routine Physician Instructions: Reason for Visit: Persistent hypoglycemia Is VTE Prophylaxis Indicated?: Yes RT has an order or consult [RC] NOW 01/21/17 04:00 Ammonia AM 0400 Specimen: Send someone from the department to collect Comment: C-Peptide AM 0400 Specimen: Send someone from the department to collect Comment: Lipid Panel AM 0400 Specimen: Send someone from the department to collect Comment: Magnesium AM 0400 Specimen: Send someone from the department to collect Comment: Phosphorous AM 0400 Specimen: Send someone from the department to collect Comment: Urinalysis reflex Microscopic [URIN] AM 0400 Specimen: Send someone from the department to collect Comment: 01/21/17 07:30 Insulin LISPRO [HumaLOG] See Protocol SQ TIDAC 01/21/17 09:00 Aspirin 81 mg PO DAILY Citalopram [CeleXA] 40 mg PO BID Dexamethasone [Decadron] 10 mg IVP DAILY Gabapentin [Neurontin] 800 mg PO QID Losartan [Cozaar] 100 mg PO DAILY 01/21/17 21:00 Atorvastatin Calcium [Lipitor] 20 mg PO HS How will this medication be supplied?: Pharmacy to Subsitute Insulin LISPRO [HumaLOG] See Protocol SQ HS Pramipexole [Mirapex] 0.25 mg PO HS Zolpidem [Ambien] 10 mg PO HS 01/21/17 Breakfast Diabetic Diet Diet Modifications: Patient Problems (Last Updated 01/21/17 @ 01:52 by Megan Thompson DO) Hypoglycemia (Acute) Vital Signs Temp Pulse Resp BP Pulse Ox 01/21/17 03:02 18 140/97 01/21/17 02:57 88 20 133/93 95 01/21/17 02:33 91 20 153/97 95 01/21/17 00:48 92 18 143/92 99 01/20/17 23:15 89 24 127/89 95 01/20/17 22:03 97.3 F L 96 18 141/91 95 Laboratory Results 01/20/17 01/20/17 01/20/17 Range/Units 22:06 22:35 22:35 WBC 12.7 H (4.3-11.1) K/mcL RBC 4.91 (3.82-4.97) M/mcL Hgb 12.9 (11.5-15.4) g/dL Hct 38.2 (35.3-44.9) % MCV 77.8 L (83.0-100.0) fL MCH 26.3 L (28.0-33.3) pg MCHC 33.8 (31.6-35.5) g/dL RDW 13.9 (11.5-14.5) % Plt Count 344 (140-400) K/mcL MPV 9.2 L (9.4-12.4) fL Immature Gran % 0.5 (0-4) % Seg Neutrophils % 78.9 % Lymphocytes % 15.3 % Monocytes % 4.3 % Eosinophils % 0.7 % Basophils % 0.3 % Neutrophils # 10.0 H (1.6-8.9) K/mcL Lymphocytes # 1.9 (0.6-4.6) K/mcL Monocytes # 0.5 (0.0-1.3) K/mcL Eosinophils # 0.1 (0.0-0.6) K/mcL Basophils # 0.0 (0.0-0.2) K/mcL Sodium 139 (136-145) mEq/L Potassium 3.9 (3.5-4.5) mEq/L Chloride 103 (98-109) mEq/L Carbon Dioxide 25 (19-29) mEq/L BUN 11 (7-20) mg/dL Creatinine 0.93 (0.57-1.11) mg/dL Est GFR ( Amer) > 60 (> 60) Est GFR (Non-Af Amer) > 60 (> 60) BUN/Creatinine Ratio 12 (6-26) Glucose 89 (70-99) mg/dL POC Glucose 106 H (58-89) Calculated Osmolality 287 (280-300) Calcium 10.3 (8.6-10.8) mg/dL Total Bilirubin 0.4 (0.2-1.2) mg/dL Direct Bilirubin 0.2 (0.0-0.5) mg/dL Indirect Bilirubin 0.2 (0.0-1.2) mg/dL AST 19 (5-34) Units/L ALT 18 (0-55) Units/L Alkaline Phosphatase 125 (38-126) Units/L Troponin I (0-0.03) ng/mL Serum Total Protein 7.9 (6.0-8.3) g/dL Albumin 3.5 (3.5-5.0) g/dL Globulin 4.4 H (2.4-3.5) g/dL Albumin/Globulin Ratio 0.8 L (1.1-2.2) TSH (0.350-4.840) mcIU/mL 01/20/17 01/20/17 01/20/17 Range/Units 22:35 22:35 23:49 WBC (4.3-11.1) K/mcL RBC (3.82-4.97) M/mcL Hgb (11.5-15.4) g/dL Hct (35.3-44.9) % MCV (83.0-100.0) fL MCH (28.0-33.3) pg MCHC (31.6-35.5) g/dL RDW (11.5-14.5) % Plt Count (140-400) K/mcL MPV (9.4-12.4) fL Immature Gran % (0-4) % Seg Neutrophils % % Lymphocytes % % Monocytes % % Eosinophils % % Basophils % % Neutrophils # (1.6-8.9) K/mcL Lymphocytes # (0.6-4.6) K/mcL Monocytes # (0.0-1.3) K/mcL Eosinophils # (0.0-0.6) K/mcL Basophils # (0.0-0.2) K/mcL Sodium (136-145) mEq/L Potassium (3.5-4.5) mEq/L Chloride (98-109) mEq/L Carbon Dioxide (19-29) mEq/L BUN (7-20) mg/dL Creatinine (0.57-1.11) mg/dL Est GFR ( Amer) (> 60) Est GFR (Non-Af Amer) (> 60) BUN/Creatinine Ratio (6-26) Glucose (70-99) mg/dL POC Glucose 278 H (58-89) Calculated Osmolality (280-300) Calcium (8.6-10.8) mg/dL Total Bilirubin (0.2-1.2) mg/dL Direct Bilirubin (0.0-0.5) mg/dL Indirect Bilirubin (0.0-1.2) mg/dL AST (5-34) Units/L ALT (0-55) Units/L Alkaline Phosphatase (38-126) Units/L Troponin I 0.00 (0-0.03) ng/mL Serum Total Protein (6.0-8.3) g/dL Albumin (3.5-5.0) g/dL Globulin (2.4-3.5) g/dL Albumin/Globulin Ratio (1.1-2.2) TSH 1.930 (0.350-4.840) mcIU/mL 01/21/17 Range/Units 01:59 WBC (4.3-11.1) K/mcL RBC (3.82-4.97) M/mcL Hgb (11.5-15.4) g/dL Hct (35.3-44.9) % MCV (83.0-100.0) fL MCH (28.0-33.3) pg MCHC (31.6-35.5) g/dL RDW (11.5-14.5) % Plt Count (140-400) K/mcL MPV (9.4-12.4) fL Immature Gran % (0-4) % Seg Neutrophils % % Lymphocytes % % Monocytes % % Eosinophils % % Basophils % % Neutrophils # (1.6-8.9) K/mcL Lymphocytes # (0.6-4.6) K/mcL Monocytes # (0.0-1.3) K/mcL Eosinophils # (0.0-0.6) K/mcL Basophils # (0.0-0.2) K/mcL Sodium (136-145) mEq/L Potassium (3.5-4.5) mEq/L Chloride (98-109) mEq/L Carbon Dioxide (19-29) mEq/L BUN (7-20) mg/dL Creatinine (0.57-1.11) mg/dL Est GFR ( Amer) (> 60) Est GFR (Non-Af Amer) (> 60) BUN/Creatinine Ratio (6-26) Glucose (70-99) mg/dL POC Glucose 138 H (58-89) Calculated Osmolality (280-300) Calcium (8.6-10.8) mg/dL Total Bilirubin (0.2-1.2) mg/dL Direct Bilirubin (0.0-0.5) mg/dL Indirect Bilirubin (0.0-1.2) mg/dL AST (5-34) Units/L ALT (0-55) Units/L Alkaline Phosphatase (38-126) Units/L Troponin I (0-0.03) ng/mL Serum Total Protein (6.0-8.3) g/dL Albumin (3.5-5.0) g/dL Globulin (2.4-3.5) g/dL Albumin/Globulin Ratio (1.1-2.2) TSH (0.350-4.840) mcIU/mL Assessments/Treatments 12 lead ECG assessment Start: 01/21/17 00: 11 Freq: NOW Status: Complete Document 01/21/17 00:48 AMW (Rec: 01/21/17 00:49 AMW [place] [id number]) EKG Additional Comment Pt refused. Cardiac monitoring Start: 01/20/17 22: 06 Freq: Status: Complete Document 01/20/17 22:18 CRS (Rec: 01/20/17 22:33 CRS [id number]) Cardiac Monitoring Heart Rate 93 Monitoring Method Telemetry Rhythm Sinus Rhythm Monitor Number ed 5 ED Altered Mental Status Assessment Start: 01/20/17 22: 06 Freq: Status: Complete Document 01/20/17 22:18 CRS (Rec: 01/20/17 22:33 CRS [id number]) Altered Mental Status Sepsis Infection Criteria Present none Sepsis SIRS Criteria none Sepsis Screen No Definite Risk Symptoms/Complaint Weakness Onset 1 week Timing Confirmed By Spouse Severity Moderate Consistency of Symptoms Waxing and Waning Associated Symptoms Diaphoresis Nausea/Vomiting Weakness Treatment Prior to Arrival Glucose Blood Glucose* 106 Level Of Consciousness Awake Alert Appropriate Follows Commands Patient Orientation Person Place Time Name Age Date of Day of Month Day of Week Month Year Time of Day Patient Behavior Fatigued Ability to Follow Directions Good Impaired Cognition No Respiratory Depth Normal Respiratory Effort Normal for Patient Spontaneous Non-Labored Respiratory Pattern Regular Skin Temperature Warm Skin Moisture Dry Skin Turgor Normal Capillary Refill < 3 Seconds Eye Opening Spontaneous Motor Response Obeys Commands Verbal Response Oriented Coma Scale Total 15 ED Comment Patient reports no pain. Pt reports starting new medication and having abnormal blood sugars. patient has slurred speech and is fatigued but related to low blood sugar. Patient reports this has happened in the past. ED Discharge Assessment Start: 01/20/17 22: 06 Freq: Status: Active Document 01/21/17 03:02 AMW (Rec: 01/21/17 03:03 AMW [place] [id number]) ED Discharge Assessment ED Discharge Disposition Admitted ED Condition on Discharge Fair Med Rec/Patient Pharmacy Completed? No Mode of Discharge Stretcher Admitted to 3B Bed assigned 46 Transported by electrical mechanical technician Transported with IV continuing medication Report given to Nurse Care transferred to (name/credentials) Leslie GREEN Information relayed patient's care treatments medications given condition recent/anticipated changes Clinical Documentation Summary Provided Yes Pain Scale 0 Pain Scale Used Standard (1-10) Blood Pressure 140/97 Heart rate 86 Respiratory Rate 18 Oxygen Delivery Room Air Oxygen Saturation 93 Critical Care Minutes 0 Glucose, blood point of care measurement Start: 01/20/17 22: 06 Freq: Status: Active Document 01/20/17 22:06 [facility] (Rec: 01/20/17 22:08 [facility] [id number]) Blood Glucose Assessment Blood Glucose* 106 Hypoglycemia Symptoms Difficulty Speaking Document 01/20/17 23:53 CRS (Rec: 01/20/17 23:53 CRS [id number]) Blood Glucose Assessment Blood Glucose* 278 Glucose, blood point of care measurement Start: 01/21/17 00: 11 Freq: .ONCE Status: Complete Document 01/21/17 02:02 ALS (Rec: 01/21/17 02:02 ALS [id number]) Blood Glucose Assessment Blood Glucose* 138 NPO (Nursing Order) Start: 01/21/17 00: 11 Freq: NOW Status: Complete Document 01/21/17 00:48 AMW (Rec: 01/21/17 00:49 AMW [place] [id number]) Patient Rounding Start: 01/20/17 22: 06 Freq: Q30M Status: Active Document 01/21/17 00:48 AMW (Rec: 01/21/17 00:49 AMW [place] [id number]) Patient Rounding Safety Call Light Within Reach Bed Position Low Side Rails Up X2 Are the Floors Free From Trip Hazards? Yes Is the Room Free From Clutter? Yes Rounding Completed? Yes Patient Rounding Updated patient/family on Plan of Care Checked for Patient Positioning Patient Personal Items Placed Within Reach Checked Patient Pain Level Patient Awake Patient Verbalizes Pain/Symptoms Yes Improvement RT Continuous Pulse Oximetry Start: 01/20/17 22: 06 Freq: Status: Complete Document 01/20/17 22:18 CRS (Rec: 01/20/17 22:33 CRS [id number]) Saline lock insertion/management Start: 01/20/17 22: 06 Freq: Status: Complete Document 01/20/17 22:18 CRS (Rec: 01/20/17 22:33 CRS [id number]) IV Insertion/Site Assessment IV Attempt 2 Successful Successful Blood drawn and sent to Lab Yes Right Antecubital Date of Insertion 01/20/17 Reason for IV Insertion Replace Lost Fluids Provide Access for IV Medication(s) Provide Access for Emergency IV Catheter Type Peripheral IV Gauge (gauge) 18 Site Observation Patent Dressing Applied Window Dressing Dry/Intact Patient Tolerance Tolerated Well Triage Start: 01/20/17 22: 03 Freq: Status: Complete Document 01/20/17 22:03 [facility] (Rec: 01/20/17 22:06 [facility] [id number]) Triage Chief Complaint triage ED Altered Mental Status Patient Stated Complaint "blood sugars up and down" IRAM 2 Onset (ago) minute(s) Description of Symptoms Patient reports blood sugar low. Reports was 69 earlier and only had some orange juice . Reports has been up and down all week. Has been having nausea General Appearance alert Work Related Injury? No Mode of arrival ambulatory Source patient Limitations no limitations Ebola Risk: Travel/Contact With Anyone No From Affected Area/s Has Patient Experienced Ebola Symptoms No Temperature (97.6 F-99.6 F) 97.3 F L Temperature Source Oral Pulse Rate 96 Respiratory Rate 18 Blood Pressure 141/91 O2 Sat by Pulse Oximetry 95 Oxygen Delivery Room Air Height 1.73 m Weight 113.398 kg Weight Measurement Method Stated by Patient Pain Scale 0 Pain Scale Used Standard (1-10) Medical history diabetes hypertension Female surgical history appendectomy cholecystectomy other Psychiatric history no psych history Smoking Status Never smoker Alcohol Use none Drug Use none Patient resides with/at Spouse Do you currently feel hopless, have No thoughts of self harm, or thoughts of harming others History of fall in last 14 days? 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 Mother Family Member Living Status Hx Family Cardiac Disorders Yes Hx Family Endocrine Disorder Yes: diabetes Vital Signs Assessment Start: 01/20/17 22: 06 Freq: Status: Active Document 01/20/17 23:15 CRS (Rec: 01/20/17 23:21 CRS [id number]) ED Vital Signs Pain Reported No Pain Reported Blood Pressure 127/89 Pulse Rate 89 Respiratory Rate 24 Pulse Oximetry 95 Oxygen Delivery Room Air Vital Signs Assessment Start: 01/21/17 00: 11 Freq: PROTOCOL Status: Active Document 01/21/17 00:48 AMW (Rec: 01/21/17 00:49 AMW [place] [id number]) ED Vital Signs Pain Reported No Pain Reported Pain Scale Used Standard (1-10) Blood Pressure 143/92 Pulse Rate 92 Respiratory Rate 18 Pulse Oximetry 99 Oxygen Delivery Room Air Level Of Consciousness Awake Alert Appropriate Follows Commands Patient Orientation Person Place Time Name Age Date of Day of Month Day of Week Time of Day Patient Behavior Appropriate Cooperative Ability to Follow Directions Excellent Impaired Cognition No Document 01/21/17 02:33 CRS (Rec: 01/21/17 02:35 CRS [id number]) ED Vital Signs Pain Reported No Pain Reported Blood Pressure 153/97 Pulse Rate 91 Respiratory Rate 20 Pulse Oximetry 95 Oxygen Delivery Room Air Document 01/21/17 02:57 CRS (Rec: 01/21/17 02:59 CRS [id number]) ED Vital Signs Pain Reported No Pain Reported Blood Pressure 133/93 Pulse Rate 88 Respiratory Rate 20 Depth Normal Effort Normal for Patient Spontaneous Pulse Oximetry 95 Oxygen Delivery Room Air Discharge Information ED Provider: Kai Babcock Status: Departed Time Seen by Provider: 01/20/17 23:07 Condition: Good Triaged At: 01/20/17 22:03 Emergency Discharge Date/Time: 01/21/17 03:09 Emergency Discharge Disposition: Admitted As Inpatient Clinical Impression Hypoglycemia Emergency Discharge Comment: Admit Intervention Last Done ED Altered Mental Status Assessment 01/20/17 22:18 Query Result Sepsis Infection Criteria Present none Sepsis SIRS Criteria none Sepsis Screen No Definite Risk Altered Mental Status Symptoms/Complaint Weakness Altered Mental Status Onset 1 week Mental Status Timing Confirmed By Spouse Altered Mental Status Severity Moderate Altered Mental Status Consistency of Waxing and Waning Symptoms Altered Mental Status Associated Diaphoresis Symptoms Nausea/Vomiting Weakness Altered Mental Status Treatments Prior Glucose to Arrival Blood Glucose* 106 Level Of Consciousness Awake Alert Appropriate Follows Commands Patient Orientation Person Place Time Name Age Date of Day of Month Day of Week Time of Day Patient Behavior Fatigued Ability to Follow Directions Good Impaired Cognition No Respiratory Depth Normal Respiratory Effort Normal for Patient Spontaneous Non-Labored Respiratory Pattern Regular Skin Temperature Warm Skin Moisture Dry Skin Turgor Normal Capillary Refill < 3 Seconds Coma Scale Eye Opening Spontaneous Coma Scale Motor Response Obeys Commands Coma Scale Verbal Response Oriented Coma Scale Total 15 ED Comment Patient reports no pain. Pt reports starting new medication and having abnormal blood sugars. patient has slurred speech and is fatigued but related to low blood sugar. Patient reports this has happened in the past. ED Discharge Assessment 01/21/17 03:02 Query Result ED Discharge Disposition Admitted ED Condition on Discharge Fair Med Rec/Patient Phamracy completed? No ED Mode of Discharge Stretcher ED Admit to 3B Bed assigned 46 Transported by electrical mechanical technician Transported with IV continuing medication Report given to Nurse Care transferred to Leslie GREEN Information relayed patient's care treatments medications given condition recent/anticipated change Clinical Documentation Summary Provided Yes Severity scale (1-10) 0 Pain Scale Used Standard (1-10) Blood Pressure 140/97 Heart rate 86 Respiratory Rate 18 Oxygen Delivery Room Air Pulse Oximetry Reading 93 Critical Care Minutes 0 Observation Discharge Date/Time: Observation Discharge Disposition: Observation Discharge Comment: Instructions: Stand-Alone Forms: Prescriptions: Visit Report - Forms: - Referrals:
[2017-01-21] MEDS: D10% in Water 500 ML IVC SCH ×2 (04:13→14:40)
[2017-01-21 04:19] LABS: Hemoglobin A1C 9.7 %
[2017-01-21 04:29] LABS: Amylase 45 Units/L (25-125); Creatine Kinase 75 Units/L (29-168); Lactate Dehydrogenase 164 Units/L (159-327); Lipase 9 Units/L (8-78)
[2017-01-21 04:32] LABS: Chol/HDL Ratio 5.4 (0-4.9); Magnesium 1.8 mg/dL (1.6-2.6); Phosphorous 5.1 mg/dL (2.3-4.7)
[2017-01-21 05:20] LABS: C-Reactive Protein 32 mg/L (Less than 5)
[2017-01-21 05:33] LABS: Bilirubin,Urine Negative (Negative); Blood,Urine Negative (Negative); Clarity,Urine Cloudy (Clear); Color,Urine Yellow (Yellow); Glucose,Urine (UA) Normal (Normal); Ketones,Urine Negative (Negative); Leukocyte Esterase,Urine Small (Negative); Nitrite,Urine Positive (Negative); Protein,Urine Negative (Neg-Trace); Specific Gravity,Urine 1.015 (1.010-1.025); Urobilinogen,Urine Normal (Normal)
[2017-01-21 05:36] LABS: Bacteria,Urine Many per hpf (None-Few); Hyaline Casts,Urine None Seen per lpf (None-Few); RBC,Urine 0-3 per hpf (0-3); Squamous Epithelial Cell,Urine Moderate per lpf (None-Few); WBC,Urine 15-30 per hpf (0-3)
[2017-01-21 05:40] LABS: Amphetamine Screen,Urine Negative ng/mL (Cutoff=1000); Barbiturate Screen,Urine Negative ng/mL (Cutoff=200); Benzodiazepines Screen,Urine Negative ng/mL (Cutoff=200); Cannabinoid Screen,Urine Negative ng/mL (Cutoff = 50); Cocaine Screen,Urine Negative ng/mL (Cutoff= 300); Opiate Screen,Urine Negative ng/mL (Cutoff=300); Phencyclidine Screen,Urine Negative ng/mL (Cutoff=25)
[2017-01-21 05:40] LABS: Prolactin 13.44 ng/mL (5.18-26.53)
[2017-01-21] MEDS: Aspirin 81 MG TAB.CHEW PO SCH (08:31)
[2017-01-21] MEDS: Gabapentin 400 MG CAPSULE PO SCH ×4 (08:31→21:43)
[2017-01-21] MEDS: Metoclopramide 10 MG/2 ML VIAL IVP SCH ×4 (08:33→21:47)
[2017-01-21] MEDS: Insulin LISPRO 300 UNITS/3 ML VIAL SQ SCH ×4 (08:36→17:28)
[2017-01-21] MEDS ORDERED: Dexamethasone 10 MG/ML VIAL IVP SCH (09:00)
--- NOTE | 2017-01-21 09:29 | Internal Med Progress Note ---
<Timothy Mcclure - Last Filed: 01/21/17 12:47> Date of Encounter: 01/21/17 Time of Encounter: 09:26 - Assessment and plan (1) Diabetes type 2, uncontrolled Current Visit: Yes Status: Acute Assessment and plan: Known type II diabetic uncontrolled. Recent changes to home insulin. Recently evaluated by endocrinology here at [place]. Current hemoglobin A1c 9.7. Current glucose 399. admitted with episodes of hypoglycemia- symptomatic. Outpatient records reviewed. She recently followed up with Sharda Reddy with regards to her uncontrolled DM on 01/20/2017. Recommendations were to Start Metformin 500mg once per day. Start Glimepiride 2mg orally daily. Restart mfm low dose ER- titrate if tolerated and continue 70/30. Hx of gastroporesis- Patient started back on Regalin last evening. Plan: - Low dose sliding scale Q6hrs. Adjust as necessary. 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 She had a glucose level of 50 in the ER and received intervention. She was seen by endocrinology yesterday and would benefit from a diabetic education consult and diet review. Continue plan as above. (3) Hypertension Current Visit: No Status: Acute Assessment and plan: BP stable. Continue home anti-hypertensive regiment. Qualifiers: Hypertension type: essential hypertension Qualified Code(s): I10 - Essential (primary) hypertension (4) Obesity Current Visit: No Status: Chronic Assessment and plan: Obese female with BMI 38.3 with HTN, DM type II. 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 Qualifiers: Obesity type: unspecified obesity type Obesity severity: non-morbid Qualified Code(s): E66.9 - Obesity, unspecified (5) Hypercholesteremia Current Visit: Yes Status: Chronic Assessment and plan: Continued on Simvastatin. (6) Hyperlipidemia Current Visit: No Status: Chronic Assessment and plan: Continue current treatment. Patient should abide by strict diet control. Qualifiers: Hyperlipidemia type: pure hypercholesterolemia Qualified Code(s): E78.00 - Pure hypercholesterolemia, unspecified; E78.0 - Pure hypercholesterolemia - Subjective Interval history: Ms. Prakash 51 yo AA F has been seen and evaluated patient bedside this morning. She is awake alert and interactive. She said she feels shaky and jittery. She says she feels this way when she becomes hypoglycemic. She says her glucoses are normally between 200 and 400 and her average A1c has been roughly 10.2. She used to be on 70/30 and last week was increased to 80/40. She said that normal glucose levels make her hypoglycemic. She denies any current nausea or vomiting. She denies any other symptoms. - Constitutional Vitals: Temp Pulse Resp BP Pulse Ox 98.0 F 88 16 136/84 93 01/21/17 07:10 01/21/17 07:10 01/21/17 07:10 01/21/17 07:10 01/21/17 07:10 General appearance: Present: mild distress, A&O X 3, morbidly obese, answers questions appropriately - Head Head exam: Present: atraumatic, normocephalic - Eye Eye exam: Present: PERRL, conjuntiva pink, sclera anicteric Pupils: Present: PERRL - ENT ENT exam: Present: mucous membranes moist - Neck Neck exam general surgery: Present: supple, trachea midline. Absent: lymphadenopathy - Respiratory Respiratory exam: Present: CTAB. Absent: accessory muscle use, rales, rhonchi, wheezes - Cardiovascular Cardiovascular exam: Present: RRR, +S1, +S2. Absent: diastolic murmur, gallop, rubs, systolic murmur - GI/Abdominal GI/Abdominal exam: Present: normal bowel sounds, soft, no peritoneal signs. Absent: distended, tenderness - Extremities Exam Extremities exam: Present: warm, radial pulses palpable and symetrical. Absent : calf tenderness, cyanotic, pedal edema - Neurological Exam Neurological exam: Present: alert, oriented X3, no focal deficits, speech deficit (Patient presents with stuttered speech.). Absent: pronater drift, facial droop - Psychiatric Psychiatric exam: Present: normal affect, normal mood - Skin Skin exam: Present: dry, intact Internal Medicine: Result - Labs CBC & Chem 7: 03/31/17 22:35 01/20/17 22:35 Labs: Urine 01/21/17 Range/Units 05:15 Urine Color Yellow (Yellow) Urine Clarity Cloudy A (Clear) Urine pH 6.0 (5.0-8.0) pH Units Ur Specific [place] 1.015 (1.010-1.025) Urine Protein Negative (Neg-Trace) mg/dL Urine Glucose (UA) Normal (Normal) mg/dL Consult Discharge Plan - Plan Referrals: Alfredo Cummings Jr, MD [Primary Care Provider] - <Alexei Chery Manuela - Last Filed: 01/21/17 14:24> Date of Encounter: 01/21/17 - Constitutional Vitals: Temp Pulse Resp BP Pulse Ox 97.3 F L 101 18 153/89 93 01/21/17 12:55 01/21/17 12:55 01/21/17 12:55 01/21/17 12:55 01/21/17 12:55 Internal Medicine: Result - Labs CBC & Chem 7: 01/20/17 22:35 01/20/17 22:35 Labs: Urine 01/21/17 Range/Units 05:15 Urine Color Yellow (Yellow) Urine Clarity Cloudy A (Clear) Urine pH 6.0 (5.0-8.0) pH Units Ur Specific [place] 1.015 (1.010-1.025) Urine Protein Negative (Neg-Trace) mg/dL Urine Glucose (UA) Normal (Normal) mg/dL - Impressions Impressions Abdomen MRI 01/21/17 03:48 IMPRESSION: 1. No acute abnormality. 2. Splenomegaly. D/ / Max Blair MD / Max Blair MD Interpreting Provider: Max Blair MD Abdomen/Pelvis CT 01/21/17 04:11 IMPRESSION: 1. No acute abnormality. 2. Splenomegaly. D/ / Max Blair MD / Max Blair MD Interpreting Provider: Max Blair MD Head CT 01/21/17 05:45 IMPRESSION: 1. No acute intracranial abnormality. D/ / Max Blair MD / Max Blair MD Interpreting Provider: Max Blair MD - Attending Attestation takes Novolin N takes 70 Units BID , and NOvolin R 30 units TID continue metformin recently started at 500 mg daily hold glimiperide may discharge in a m if stable . Now hyperglycemic. stopped D10 I examined this patient and my medical decision-making was reviewed with the LOCOMOTIVE REPAIRER DIESEL/PA/Advanced Practice Nurse/Resident Physician. I agree with the documented findings, disposition and treatment plan as described except to the extent set forth below.
[2017-01-21] MEDS: Insulin DETEMIR 100 UNIT/ML X5UNITS SQ SCH ×2 (17:28→21:48)
[2017-01-21] MEDS: *HR* Metformin 500 MG TABLET PO SCH (17:43)
[2017-01-21] MEDS ORDERED: Insulin LISPRO 300 UNITS/3 ML VIAL SQ SCH (21:00)
[2017-01-22] MEDS: D10% in Water 500 ML IVC SCH (02:46)
[2017-01-22 05:32] LABS: Basophils % 0.1 %; Hemoglobin 11.5 g/dL (11.5-15.4); Immature Granulocytes % 0.8 % (0-4); Lymphocytes # 1.9 K/mcL (0.6-4.6); Lymphocytes % 12.6 %; Mean Corpuscular HGB Conc 33.8 g/dL (31.6-35.5); Mean Corpuscular Hemoglobin 26.3 pg (28.0-33.3); Mean Corpuscular Volume 77.8 fL (83.0-100.0); Mean Platelet Volume 9.1 fL (9.4-12.4); Monocytes # 0.7 K/mcL (0.0-1.3); Monocytes % 4.7 %; Neutrophils # 12.6 K/mcL (1.6-8.9); Platelet Count 310 K/mcL (140-400); Red Blood Count 4.37 M/mcL (3.82-4.97); Red Cell Distribution Width 13.9 % (11.5-14.5); Segmented Neutrophils % 81.8 %
[2017-01-22 05:37] LABS: % Iron Saturation 15 % (15-50); Alanine Aminotransferase 17 Units/L (0-55); Albumin 3.1 g/dL (3.5-5.0); Albumin/Globulin Ratio 0.8 (1.1-2.2); Alkaline Phosphatase 110 Units/L (38-126); Aspartate Amino Transferase 9 Units/L (5-34); BUN/Creatinine Ratio 17 (6-26); Bilirubin,Total 0.4 mg/dL (0.2-1.2); Blood Urea Nitrogen 18 mg/dL (7-20); Calcium 9.9 mg/dL (8.6-10.8); Carbon Dioxide 25 mEq/L (19-29); Chloride 103 mEq/L (98-109); Glucose 255 mg/dL (70-99); Iron 62 mcg/dL (50-170); Osmolality,Calculated 295 (280-300); Potassium 4.6 mEq/L (3.5-4.5); Sodium 137 mEq/L (136-145); Total Protein 7.1 g/dL (6.0-8.3); Transferrin 297 mg/dL (180-382); eGFR For African Americans > 60 (> 60); eGFR For Non-African Americans 57 (> 60)
[2017-01-22 06:56] VITALS: BP 121/77
--- NOTE | 2017-01-22 08:38 | Internal Med Progress Note ---
Date of Encounter: 01/22/17 Time of Encounter: 09:06 - Assessment and plan (1) Diabetes type 2, uncontrolled Current Visit: Yes Status: Acute Assessment and plan: Known type II diabetic uncontrolled. Recent changes to home insulin. Recently evaluated by endocrinology here at [place]. Current hemoglobin A1c 9.7. admitted with episodes of hypoglycemia- symptomatic. Outpatient records reviewed. She recently followed up with Sharda Reddy with regards to her uncontrolled DM on 01/20/2017. Recommendations were to Start Metformin 500mg once per day. Start Glimepiride 2mg orally daily. Restart mfm low dose ER- titrate if tolerated and continue 70/30. Hx of gastroporesis- Patient started back on Regalin on admission. 01/22/2017: Hyperglycemia improving currently glucose 233. No hypoglycemic events overnight. Patient much improved. Plan: - Low dose sliding scale Q6hrs. Adjust as necessary. - Metformin 500 mg by mouth a.m. - Levemir 40 units subcutaneous twice a day - insulin lispro 20 units subcutaneous 3 times a day before meals. - Diabetic diet - Diabetic education Qualifiers: Diabetes mellitus complication status: with hypoglycemia Qualified Code(s) : E11.641 - Type 2 diabetes mellitus with hypoglycemia with coma; Z79.4 - longterm (current) use of insulin (2) Multiple episodes of hypoglycemia Current Visit: Yes Status: Acute Assessment and plan: Patient says her glucose levels have fluxed frequently between hyper and hypoglycemia through out the past week since recent adjustments to her insulin regimen. She had a glucose level of 50 in the ER and received intervention. She was seen by endocrinology and would benefit from a diabetic education consult and diet review. - No hypoglycemic events since admission. Continue plan as above. (3) Hypertension Current Visit: No Status: Acute Assessment and plan: BP stable. Continue home anti-hypertensive regiment. Qualifiers: Hypertension type: essential hypertension Qualified Code(s): I10 - Essential (primary) hypertension (4) Obesity Current Visit: No Status: Chronic Assessment and plan: Obese female with BMI 38.3 with HTN, DM type II. 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 Qualifiers: Obesity type: unspecified obesity type Obesity severity: non-morbid Qualified Code(s): E66.9 - Obesity, unspecified (5) Hypercholesteremia Current Visit: Yes Status: Chronic Assessment and plan: Continued on Simvastatin. (6) Hyperlipidemia Current Visit: No Status: Chronic Assessment and plan: Continue current treatment. Patient should abide by strict diet control. Qualifiers: Hyperlipidemia type: pure hypercholesterolemia Qualified Code(s): E78.00 - Pure hypercholesterolemia, unspecified; E78.0 - Pure hypercholesterolemia - Subjective Interval history: Ms. Prakash 51 yo AA F has been seen and evaluated patient bedside this morning. She is awake alert and interactive. She she is feeling much better this morning. She denies any hypoglycemic events overnight as tolerated her breakfast to completion this morning. Little nausea but that is resolved. No other symptoms or signs. She is looking forward to potential discharge. Denies any chest pains, chest pressure, palpitations, abdominal pain, vomiting diarrhea or constipation. Discharge medications. Recommend close follow-up. - Constitutional Vitals: Temp Pulse Resp BP Pulse Ox 97.6 F 88 15 121/77 96 01/22/17 06:55 01/22/17 06:55 01/22/17 06:55 01/22/17 06:55 01/22/17 06:55 General appearance: Present: mild distress, A&O X 3, morbidly obese, answers questions appropriately - Head Head exam: Present: atraumatic, normocephalic - Eye Eye exam: Present: PERRL, conjuntiva pink, sclera anicteric Pupils: Present: PERRL - ENT ENT exam: Present: mucous membranes moist - Neck Neck exam general surgery: Present: supple, trachea midline. Absent: lymphadenopathy - Respiratory Respiratory exam: Present: CTAB. Absent: accessory muscle use, rales, rhonchi, wheezes - Cardiovascular Cardiovascular exam: Present: RRR, +S1, +S2. Absent: diastolic murmur, gallop, rubs, systolic murmur - GI/Abdominal GI/Abdominal exam: Present: normal bowel sounds, soft, no peritoneal signs. Absent: distended, tenderness - Extremities Exam Extremities exam: Present: warm, radial pulses palpable and symetrical. Absent : calf tenderness, cyanotic, pedal edema - Neurological Exam Neurological exam: Present: CN II-XII intact, oriented X3, no focal deficits. Absent: pronater drift, facial droop, speech deficit - Skin Skin exam: Present: dry, intact Internal Medicine: Result - Labs CBC & Chem 7: 01/22/17 04:54 01/22/17 04:54 Labs: Short CBC 01/22/17 Range/Units 04:54 WBC 15.4 H (4.3-11.1) K/mcL Hgb 11.5 (11.5-15.4) g/dL Hct 34.0 L (35.3-44.9) % Plt Count 310 (140-400) K/mcL Neutrophils # 12.6 H (1.6-8.9) K/mcL BMP 01/22/17 04:54 Sodium 137 Potassium 4.6 H Chloride 103 Carbon Dioxide 25 BUN 18 Creatinine 1.03 Glucose 255 H Calcium 9.9 Liver Function 01/22/17 Range/Units 04:54 Total Bilirubin 0.4 (0.2-1.2) mg/dL AST 9 (5-34) Units/L ALT 17 (0-55) Units/L Alkaline Phosphatase 110 (38-126) Units/L Albumin 3.1 L (3.5-5.0) g/dL - Impressions Impressions Abdomen MRI 01/21/17 03:48 IMPRESSION: 1. No acute abnormality. 2. Splenomegaly. D/ / Max Blair MD / Max Blair MD Interpreting Provider: Max Blair MD Abdomen/Pelvis CT 01/21/17 04:11 IMPRESSION: 1. No acute abnormality. 2. Splenomegaly. D/ / Max Blair MD / Max Blair MD Interpreting Provider: Max Blair MD Head CT 01/21/17 05:45 IMPRESSION: 1. No acute intracranial abnormality. D/ / Max Blair MD / Max Blair MD Interpreting Provider: Max Blair MD Consult Discharge Plan - Plan Referrals: Alfredo Cummings Jr, MD [Primary Care Provider] -
[2017-01-22] MEDS: Insulin DETEMIR 100 UNIT/ML X5UNITS SQ SCH (09:45)
[2017-01-22] MEDS: Insulin LISPRO 300 UNITS/3 ML VIAL SQ SCH ×3 (09:47→13:26)
[2017-01-22] MEDS: *HR* Metformin 500 MG TABLET PO SCH (09:48)
[2017-01-22] MEDS: Gabapentin 400 MG CAPSULE PO SCH ×2 (09:48→13:26)
[2017-01-22] MEDS: Aspirin 81 MG TAB.CHEW PO SCH (09:49)
[2017-01-22] MEDS: Metoclopramide 10 MG/2 ML VIAL IVP SCH (09:49)
--- NOTE | 2017-01-22 11:00 | Discharge Summary ---
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 (2) Multiple episodes of hypoglycemia Priority: Primary Status: Acute (3) Hypertension Priority: Secondary Status: Acute Qualifiers: Hypertension type: essential hypertension Qualified Code(s): I10 - Essential (primary) hypertension (4) Obesity Priority: Secondary Status: Chronic Qualifiers: Obesity type: unspecified obesity type Obesity severity: non-morbid Qualified Code(s): E66.9 - Obesity, unspecified (5) Hypercholesteremia Priority: Secondary Status: Chronic (6) Hyperlipidemia Priority: Secondary Status: Chronic Qualifiers: Hyperlipidemia type: pure hypercholesterolemia Qualified Code(s): E78.00 - Pure hypercholesterolemia, unspecified; E78.0 - Pure hypercholesterolemia - Discharge Medications Prescriptions: Insulin Human Regular [HumuLIN R] 30 unit SQ TID 30 Days Insulin NPH, HUMAN [HumuLIN N] 70 unit SQ BID 30 Days Simvastatin [Zocor] 40 mg PO HS 30 Days Home Medications: Aspirin 81 mg PO DAILY 05/23/15 [History] Citalopram [CeleXA] 40 mg PO BID 05/23/15 [History] Dicyclomine HCl [Bentyl] 20 mg PO TID PRN 05/23/15 [History] Gabapentin [Neurontin] 800 mg PO QID 05/23/15 [History] Pramipexole Di-HCl [Mirapex] 0.25 mg PO TID 05/23/15 [History] Tramadol HCl [Ultram] 50 mg PO Q6HR PRN 05/23/15 [History] Zolpidem Tartrate [Ambien] 10 mg PO HS 05/23/15 [History] Metformin HCl [Metformin HCl ER] 500 mg PO DAILY 01/21/17 [History] Ondansetron HCl [Zofran] 4 mg PO Q8H PRN 01/21/17 [History] Insulin Human Regular [HumuLIN R] 30 unit SQ TID 30 Days 01/22/17 [Rx] Insulin NPH, HUMAN [HumuLIN N] 70 unit SQ BID 30 Days 01/22/17 [Rx] Simvastatin [Zocor] 40 mg PO HS 30 Days 01/22/17 [Rx] Allergies/Adverse Reactions: Allergies latex Adverse Reaction (Verified 01/20/17 22:06) Cramping of the Muscles metformin Adverse Reaction (Verified 01/20/17 22:06) Diarrhea Sulfa (Sulfonamide Antibiotics) Adverse Reaction (Verified 01/20/17 22:06) Vomiting sulfamethoxazole [From Bactrim] Adverse Reaction (Verified 01/20/17 22:06) Vomiting trimethoprim [From Bactrim] Adverse Reaction (Verified 01/20/17 22:06) Vomiting Procedures/tests Complete & Pending: Procedures Performed prior 72 hours Category Date Time Status CT abd pelvis w iv and oral [CT] Routine Cat Scan 01/21/17 04:[address] head/brain wo con [CT] Routine Cat Scan 01/21/17 05:45 Completed MR abdomen wo/w con [MR] Routine MRI 01/21/17 03:48 Completed Date of admission: 01/21/17 02:51 Primary care physician: Alfredo Cummings Jr, MD Consults: 01/21/17 03:20 Consult to Construction Manager [CONS] Routine Comment: 01/21/17 05:04 Consult to Apron Trimmer [CONS] Routine Reason for SW Consult: Financial Concerns Discharging clinician: Timothy Mcclure Anticipated date of discharge: 01/22/17 - Patient Status Disposition: Home, Self-Care Condition: Fair Functional capacity at discharge: independent ambulation Overall status at discharge: patient is progressing back to baseline - Discharge Instructions Follow Up With: Alfredo Cummings Jr, MD [Primary Care Provider] - Additional Instructions: I recommend close follow up with your PCP in the next 3-5 days. Take medications as prescribed. - Diet and Activity Activity: increase activity as tolerated Diet: diabetic diet Interval History: Ms. Prakash is a 51 year old female with PMH of uncontrolled diabetes, asthma, GERD, arthritis, Man's esophagus, diverticulosis, hyperlipidemia, hypertension, urinary retention, depression admitted to [facility] via the emergency department when she presented with reports of alteration in mental status persistently low blood sugar measurements for the last week or more. Ms. Prakash was found to have a glucose level of 50 in the emergency department provided D50. She was admitted to the general medical floor glucoses were elevated to the 200s. Her recent outpatient records were reviewed and she was started on Levimir, low dose sliding scale and inpatient metformin. Her glucose levels initially elevated to 400 and then trended back down to 200's on 01/22/2017. She did not have any further hypoglycemic events. Vitals remained stable during inpatient stay. She symptoms improved and she was tolerating PO intake on the day of discharge. She was seen and evaluated on the day of discharge and deemed stable for discharge home with close follow up with her PCP. Medications started Humulin N 70units BID, Humulin R 30units TID, Metformin 500 once daily. Stopped Glimepiride. Hospital course: Ms. Prakash is a 51 year old female - Time Spent with Patient Total time spent providing and/or coordinating discharge services: - Constitutional Vitals: Temp Pulse Resp BP Pulse Ox 97.6 F 88 15 121/77 96 01/22/17 06:55 01/22/17 06:55 01/22/17 06:55 01/22/17 06:55 01/22/17 06:55 General appearance: Present: mild distress, A&O X 3, morbidly obese, answers questions appropriately - Head Head exam: Present: atraumatic, normocephalic - Eye Eye exam: Present: PERRL, conjuntiva pink, sclera anicteric Pupils: Present: PERRL - ENT ENT exam: Present: mucous membranes moist - Neck Neck exam general surgery: Present: supple, trachea midline. Absent: lymphadenopathy - Respiratory Respiratory exam: Present: CTAB. Absent: accessory muscle use, rales, rhonchi, wheezes - Cardiovascular Cardiovascular exam: Present: RRR, +S1, +S2. Absent: diastolic murmur, gallop, rubs, systolic murmur - GI/Abdominal GI/Abdominal exam: Present: normal bowel sounds, soft, no peritoneal signs. Absent: distended, tenderness - Extremities Exam Extremities exam: Present: warm, radial pulses palpable and symetrical. Absent : calf tenderness, cyanotic, pedal edema - Neurological Exam Neurological exam: Present: alert, oriented X3, no focal deficits. Absent: pronater drift, facial droop, speech deficit - Psychiatric Psychiatric exam: Present: normal affect, normal mood <Alexei Chery H - Last Filed: 01/22/17 11:58> Date of Encounter: 01/22/17 Procedures/tests Complete & Pending: Procedures Performed prior 72 hours Category Date Time Status CT abd pelvis w iv and oral [CT] Routine Cat Scan 01/21/17 04:[address] head/brain wo con [CT] Routine Cat Scan 01/21/17 05:45 Completed MR abdomen wo/w con [MR] Routine MRI 01/21/17 03:48 Completed Date of admission: 01/21/17 02:51 Primary care physician: Alfredo Cummings Jr, MD Consults: 01/21/17 03:20 Consult to Construction Manager [CONS] Routine Comment: 01/21/17 05:04 Consult to Apron Trimmer [CONS] Routine Reason for SW Consult: Financial Concerns Hospital course: Ms. Prakash is a 51 year old female - Time Spent with Patient Total time spent providing and/or coordinating discharge services: - Constitutional Vitals: Temp Pulse Resp BP Pulse Ox 97.6 F 88 15 121/77 96 01/22/17 06:55 01/22/17 06:55 01/22/17 06:55 01/22/17 06:55 01/22/17 06:55 - Attending Attestation Hypoglycemia secondary to the addition of glimepiride and metformin Decreased dose of Novolin in back to 70 units twice a day and Novolin R back to 30 units 3 times a day, discontinue glimepiride permanently and restart metformin at the lowest dose of 500 mg daily. Primary care physician will increase the dose of metformin progressively. Check glucoses regularly Time spent on this discharge 40 minutes
[2017-01-22] MEDS: Fluconazole 100 MG TABLET PO ONE (14:24)
[2017-01-23 18:09] LABS: Insulin, Free 40 uIU/mL (3-19)
[2017-01-24 07:23] LABS: Insulin, Total 48 uIU/mL (3-19)
[2017-01-25 07:31] LABS: Urine Collection Duration RANDOM hr; Urine Collection Volume RANDOM mL
== END 2017-01-22 14:30 | disposition home or self-care (01) ==
LOC: 3BNU 22:01 → EMEROO 22:01 → SUATTDRO 01-21 02:51 → 3BNU 01-21 03:09
PROVIDERS: ADMIT Internal Medicine; ATTEND Internal Medicine

== ENCOUNTER 2017-07-11 17:17 | Observation (INO) ==
[2017-07-11] MEDS ORDERED: *HR* Morphine 2 MG/ML SYRINGE IVP ONE (19:32)
[2017-07-11] MEDS ORDERED: Ondansetron 4 MG/2 ML VIAL IVP ONE (19:32)
[2017-07-11] MEDS ORDERED: 0.9 % Sodium Chloride 1,000 ML IVC ONE (19:33)
--- NOTE | 2017-07-11 19:38 | Emergency Department Note ---
Disposition Clinical Impression: Facial pain, Neck pain, bilateral, Neuralgia Disposition: Admitted As Inpatient Condition: Fair Referrals: Alfredo Cummings Jr, MD [Primary Care Provider] - Forms: Work/School Release, ED Satisfaction Letter Time of Disposition: 23:19 General Adult HPI - General Chief complaint: ED General Medical Stated complaint: swollen lymph nodes Time Seen by Provider: 07/11/17 19:04 Source: patient Limitations: no limitations Nursing Notes Reviewed: Yes Vital Signs Reviewed: Yes - History of Present Illness HPI Narrative: Mrs. Prakash, a 52yo female, presents from home for evaluation of neck and face pain with swelling. Onset 2 weeks ago and gradually worsening however they became acutely worse the last 48 hours. Subjective chills and pain with motion. No fever, pain with swallowing, pain with chewing, history of poor dentition/cavity/dental abscess, or cellulitis. No traumas or facial procedures. Remote history of parotitis. PMH: Hypertension, hyperlipidemia, poorly controlled type 2 diabetes. Pain Scale: 0 - Related Data Home Medications Medication Instructions Recorded Confirmed Aspirin 81 mg PO DAILY 05/23/15 07/11/17 Citalopram [CeleXA] 40 mg PO BID 05/23/15 07/11/17 Dicyclomine HCl [Bentyl] 20 mg PO TID PRN 05/23/15 07/11/17 Gabapentin [Neurontin] 800 mg PO QID 05/23/15 07/11/17 Pramipexole Di-HCl [Mirapex] 0.25 mg PO TID 05/23/15 07/11/17 Tramadol HCl [Ultram] 50 mg PO Q6HR PRN 05/23/15 07/11/17 Zolpidem Tartrate [Ambien] 10 mg PO HS 05/23/15 07/11/17 Ondansetron HCl [Zofran] 4 mg PO Q8H PRN 01/21/17 07/11/17 Glimepiride [Amaryl] 2 mg PO 0800 07/11/17 07/11/17 Insulin Human Regular [HumuLIN R] 30 unit SQ TIDWM 07/11/17 07/11/17 Losartan Potassium [Cozaar] 100 mg PO DAILY 07/11/17 07/11/17 Pantoprazole Sodium [Protonix] 40 mg PO BID 07/11/17 07/11/17 Promethazine [Phenergan] 12.5 - 25 mg PO BID PRN 07/11/17 07/11/17 Sucralfate [Carafate] 1 gm PO BID 07/11/17 07/11/17 Previous Rx's Medication Instructions Recorded Insulin NPH, HUMAN [HumuLIN N] 70 unit SQ BID 30 Days 01/22/17 Simvastatin [Zocor] 40 mg PO HS 30 Days 01/22/17 Allergies Allergy/AdvReac Type Severity Reaction Status Date / Time latex AdvReac Cramping Verified 01/20/17 22:06 of the Muscles metformin AdvReac Diarrhea Verified 01/20/17 22:06 Sulfa (Sulfonamide AdvReac Vomiting Verified 01/20/17 22:06 Antibiotics) sulfamethoxazole AdvReac Vomiting Verified 01/20/17 22:06 [From Bactrim] trimethoprim [From Bactrim] AdvReac Vomiting Verified 01/20/17 22:06 All systems ED: reviewed and negative except as stated. Review of Systems: As Per HPI Constitutional: Denies: fever, chills Eyes: Reports: eye pain. Denies: eye discharge, vision change ENT ED: Denies: ear pain, throat pain, dental pain, hearing loss, epistaxis, congestion, dysphagia Cardiovascular: Denies: chest pain, palpitations, dyspnea on exertion, orthopnea Respiratory: Denies: cough, dyspnea, wheezes Gastrointestinal: Denies: nausea, vomiting Genitourinary: Denies: urgency, dysuria Musculoskeletal: Reports: neck pain. Denies: back pain, joint swelling Integumentary: Denies: rash, abrasion, lesions Neurological: Denies: headache Past Medical History - Past Medical History Attestation: Yes The following information was validated with the patient. Source: patient Medical history: Reports: arthritis, asthma, diabetes, GERD, hyperlipidemia, hypertension, renal disease, other Surgical history: Reports: appendectomy, cholecystectomy, hysterectomy, SONDRA/BSO , other Psychiatric history: Reports: anxiety, depression, other CAR CARDER history: Reports: no CAR CARDER history - Social History Smoking Status: Never smoker Smokeless Tobacco Status: No Alcohol use: Reports: none Drug use: Reports: none Physical Exam Vital Signs Reviewed General: Patient is alert, oriented, and in moderate distress from the pain of her neck and facial swelling. HEENT: Head is normocephalic and atraumatic. PERRLA, EOMI. oral mucosa moist. Posterior pharynx without exudates, cobblestoning, erythema, or tonsillar swelling. Dentition intact without caries or fracture. Visible swelling over patient's left maxilla most prominent over her parotid gland; tender to palpation, no overlying erythema, no warmth, no crepitus, no lesions. Visible swelling over the patient's right submandibular and anterior cervical region; tender palpation, no overlying erythema, no warmth, no crepitus, no lesions. Cardiovascular: Heart regular rate and rhythm without clicks, rubs, gallops, or murmurs. No JVD. PMI nondisplaced. Respiratory: Symmetric chest rise with good respiratory effort. Bilateral breath sounds are clear without wheezing, crackles, or rhonchi. Abdomen: Obese. Bowel sounds present normoactive x-4 quadrants. Abdomen is soft, nondistended, and nontender. No organomegaly noted. Neuro: Cranial nerves II through XII without deficit. Sensation light touch intact. Psych: Patient's affect is appropriate for situation. - General Limitations: no limitations Course Course Narrative: Patient presents from home for evaluation of bilateral facial pain and neck pain onset 2 weeks ago and progressive. Acutely worsened last 48 hours. The patient has a history of prostatitis. No history of dental problems or dental abscess/dental caries. Patient is in obvious discomfort from the pain. We will attempt to manage her symptoms. Patient's face and neck are painful to very light palpation. There is no overlying erythema or lesion and the skin is intact. Dentition is intact and in good condition. Bedside ultrasound does not show any subcutaneous edema of the painful areas of her face and neck and ferning no underlying cellulitis. CT face and neck do not show any acute concerning pathology. 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 This is congenital. His pain was poorly controlled with morphine. Her pain did improve slightly with Tegretol still taking effect. Awaiting dexamethasone to take effect. I discussed the patient her symptoms and the likely neurologic in etiology. She is neurovascularly intact at the toe. No concerning findings on imaging. She does have elevated CRP and ferning and inflammatory etiology. I recommended admission for continued workup and evaluation. Patient agrees. I spoke with the admitting hospitalist, Dr. Torres, who agrees to accept the patient for continued workup and management. She requested that I applied 2 L oxygen nasal cannula and the patient to potentially help with her neurologic symptoms. Vital Signs Temperature 89.3 F L 07/11/17 17:41 Pulse Rate 89 07/11/17 17:41 Respiratory Rate 18 07/11/17 17:41 Blood Pressure 146/88 07/11/17 17:41 O2 Sat by Pulse Oximetry 95 07/11/17 17:41 Temperature 89.3 F L 07/11/17 17:41 Pulse Rate 81 07/11/17 22:41 Respiratory Rate 18 07/11/17 22:41 Blood Pressure 157/90 07/11/17 22:41 O2 Sat by Pulse Oximetry 93 07/11/17 22:41 Oxygen Delivery Oxygen Delivery Room Air Medical Decision Making - Medical Records Medical records reviewed: Yes I reviewed the patient's medical records. - Lab Data Lab results reviewed: Yes I reviewed the patient's lab results. Result diagrams: 07/11/17 19:56 07/11/17 19:56 Lab Results 07/11/17 07/11/17 07/11/17 Range/Units 18:28 19:56 19:56 WBC 11.4 H (4.3-11.1) K/mcL RBC 4.65 (3.82-4.97) M/mcL Hgb 11.7 (11.5-15.4) g/dL Hct 35.9 (35.3-44.9) % MCV 77.2 L (83.0-100.0) fL MCH 25.2 L (28.0-33.3) pg MCHC 32.6 (31.6-35.5) g/dL RDW 14.0 (11.5-14.5) % Plt Count 254 (140-400) K/mcL MPV 8.4 L (9.4-12.4) fL Immature Gran % 0.5 (0-4) % Seg Neutrophils % 74.2 % Lymphocytes % 19.8 % Monocytes % 3.7 % Eosinophils % 1.5 % Basophils % 0.3 % Neutrophils # 8.5 (1.6-8.9) K/mcL Lymphocytes # 2.3 (0.6-4.6) K/mcL Monocytes # 0.4 (0.0-1.3) K/mcL Eosinophils # 0.2 (0.0-0.6) K/mcL Basophils # 0.0 (0.0-0.2) K/mcL ESR (0-15) mm/hr Sodium 136 (136-145) mEq/L Potassium 4.0 (3.5-4.5) mEq/L Chloride 100 (98-109) mEq/L Carbon Dioxide 26 (19-29) mEq/L BUN 13 (7-20) mg/dL Creatinine 0.93 (0.57-1.11) mg/dL Est GFR ( Amer) > 60 (> 60) Est GFR (Non-Af Amer) > 60 (> 60) BUN/Creatinine Ratio 14 (6-26) Glucose 206 H (70-99) mg/dL POC Glucose 310 H (58-89) Calculated Osmolality 288 (280-300) Calcium 9.9 (8.6-10.8) mg/dL C-Reactive Protein (Less than 5) mg/L TSH 1.925 (0.350-4.840) mcIU/mL Serum , Qual (Negative) 07/11/17 07/11/17 07/11/17 Range/Units 19:56 20:07 20:07 WBC (4.3-11.1) K/mcL RBC (3.82-4.97) M/mcL Hgb (11.5-15.4) g/dL Hct (35.3-44.9) % MCV (83.0-100.0) fL MCH (28.0-33.3) pg MCHC (31.6-35.5) g/dL RDW (11.5-14.5) % Plt Count (140-400) K/mcL MPV (9.4-12.4) fL Immature Gran % (0-4) % Seg Neutrophils % % Lymphocytes % % Monocytes % % Eosinophils % % Basophils % % Neutrophils # (1.6-8.9) K/mcL Lymphocytes # (0.6-4.6) K/mcL Monocytes # (0.0-1.3) K/mcL Eosinophils # (0.0-0.6) K/mcL Basophils # (0.0-0.2) K/mcL ESR >= 130 H (0-15) mm/hr Sodium (136-145) mEq/L Potassium (3.5-4.5) mEq/L Chloride (98-109) mEq/L Carbon Dioxide (19-29) mEq/L BUN (7-20) mg/dL Creatinine (0.57-1.11) mg/dL Est GFR ( Amer) (> 60) Est GFR (Non-Af Amer) (> 60) BUN/Creatinine Ratio (6-26) Glucose (70-99) mg/dL POC Glucose (58-89) Calculated Osmolality (280-300) Calcium (8.6-10.8) mg/dL C-Reactive Protein 37 H (Less than 5) mg/L TSH (0.350-4.840) mcIU/mL Serum , Qual Negative (Negative) - Radiology Data Radiology results reviewed: Yes I reviewed the patient's radiology results. - EKG Data EKG #1 EKG attestation: Yes I reviewed and interpreted this EKG. EKG results narrative: EKG dated 07/11/17 at 22:37 interpreted as sinus rhythm with a rate of 83. Normal intervals. Normal axis. Nonspecific ST-T changes. Compared to previous dated 11/02/2016 showing no acute ischemic changes comparison. Attestation Statement - Attestation Attestation: I, Alberto Hutchins DO, examined this patient [id number] and my medical decision-making was reviewed with Dr. Saravanan Núñez, Resident Physician. I agree with the documented findings, disposition and treatment plan as described except to the extent set forth below. Please see my progress notes for details. 52-year-old female presents to emergency room with complaint of bilateral facial swelling and anterior neck discomfort and pain. She has had these symptoms once in the past when she had parotid gland infection. Patient denies any recent fevers chills nausea vomiting or diarrhea. Denies headache vision changes chest pain or shortness of breath. Her main complaint is with movement of the neck. She denies thyroid disease surgical interventions to the neck or trauma to the cervical spine at this time. Physical exam shows an obese female in no apparent distress head is atraumatic pupils are equal round reactive to light. Pupils are symmetric there is no tenderness of the superior inferior orbital ridges of the nasal bridge bilaterally. Nostrils are patent. Oral mucosa is moist symmetric. Soft palate is symmetric and no uvula deviation. No signs of stridor or trismus on exam. Patient speaks in full sentences she has full range of motion of the neck but has discomfort over the anterior left cervical lymph node chain as well as over the left external auditory canal and neurologic bundle. TMs are normal bilaterally no signs of acute infectious etiology. She has no stridor no trismus no meningeal symptoms. She has no signs of epiglottitis or acute tracheitis or infectious etiology at this time. She has no palpable masses over the parotid ducts or submandibular area. No signs of Khalif's angina. Lungs are clear heart is regular. No pain with movement of the extremities no lymph nodes noted in the supraclavicular region of the chest. CT imaging of the neck up through the auditory canal is negative for acute abscesses, inflammation, swelling or lymph node distribution. Full and tracheal airway are patent. Vital signs reviewed and are otherwise stable except for some mild discomfort and borderline fever. Antibiotic regimen to be withheld at this point considering we do not have a focal source. Patient will be provided with pain medication treatment for trigeminal neuralgia and discomfort of neurologic symptoms as well as being provided with Decadron for symptomatic inflammatory relief. Labs otherwise unremarkable except for elevated white blood cell count. ESR and CRP to be ordered as well as symptomatic treatment. Disposition bending treatment course evaluation. See detailed documentation of the physical exam as well as medical decision-making, medical intervention, disposition and the resident physician's note
[2017-07-11 20:09] LABS: Basophils % 0.3 %; Eosinophils # 0.2 K/mcL (0.0-0.6); Eosinophils % 1.5 %; Hematocrit 35.9 % (35.3-44.9); Hemoglobin 11.7 g/dL (11.5-15.4); Immature Granulocytes % 0.5 % (0-4); Lymphocytes # 2.3 K/mcL (0.6-4.6); Lymphocytes % 19.8 %; Mean Corpuscular HGB Conc 32.6 g/dL (31.6-35.5); Mean Corpuscular Hemoglobin 25.2 pg (28.0-33.3); Mean Corpuscular Volume 77.2 fL (83.0-100.0); Mean Platelet Volume 8.4 fL (9.4-12.4); Monocytes # 0.4 K/mcL (0.0-1.3); Monocytes % 3.7 %; Neutrophils # 8.5 K/mcL (1.6-8.9); Platelet Count 254 K/mcL (140-400); Red Blood Count 4.65 M/mcL (3.82-4.97); Segmented Neutrophils % 74.2 %
[2017-07-11 20:21] LABS: BUN/Creatinine Ratio 14 (6-26); Blood Urea Nitrogen 13 mg/dL (7-20); Calcium 9.9 mg/dL (8.6-10.8); Carbon Dioxide 26 mEq/L (19-29); Chloride 100 mEq/L (98-109); Glucose 206 mg/dL (70-99); Osmolality,Calculated 288 (280-300); Sodium 136 mEq/L (136-145); eGFR For African Americans > 60 (> 60); eGFR For Non-African Americans > 60 (> 60)
[2017-07-11] MEDS ORDERED: carBAMazepine 200 MG TABLET PO STA (21:32)
[2017-07-11] MEDS ORDERED: Dexamethasone 4 MG/ML VIAL IVP ONE (21:43)
[2017-07-11 22:07] LABS: Thyroid Stimulating Hormone 1.925 mcIU/mL (0.350-4.840)
[2017-07-11] MEDS ORDERED: *HR* HYDROmorphone (PF) 1 MG/ML SYRINGE IVP ONE (22:19)
[2017-07-11] MEDS ORDERED: *HR* HYDROmorphone (PF) 1 MG/ML SYRINGE ONE (22:21)
[2017-07-12] MEDS ORDERED: *HR* HYDROcodone/Acet 5/325 mg TABLET PO PRN (01:05)
[2017-07-12] MEDS ORDERED: Acetaminophen 325 MG TABLET PO PRN (01:05)
[2017-07-12] MEDS ORDERED: *HR* Morphine 2 MG/ML SYRINGE IVP PRN (01:05)
[2017-07-12] MEDS ORDERED: Ondansetron 4 MG/2 ML VIAL IVP PRN (01:05)
[2017-07-12] MEDS ORDERED: Naloxone 0.4 MG/ML INJ IVP PRN (01:05)
[2017-07-12] MEDS ORDERED: Dextrose Gel 15 GM PO PRN ×2 (01:07)
[2017-07-12] MEDS ORDERED: *HR* Dextrose 50 % in Water (Syg) 50 ML SYRINGE IVP PRN (01:07)
[2017-07-12] MEDS ORDERED: D5% in Water 1,000 ML IVC PRN (01:07)
--- NOTE | 2017-07-12 01:10 | Internal Med History&Physical ---
Date of Encounter: 07/12/17 Time of Encounter: 01:09 Assessment and Plan (1) Facial pain Current visit: Yes Status: Acute R/O Dental abscess/dental problems, continue pain control, obtain facial CT, patient is low suspicion for GCA although her elevated ESR may be explained by her multiple medical co-morbidities, she received decadron in the ER, She has no visual symptoms, consider Prednisone po if facial bone CT is not suggestive (2) Diabetes Current visit: Yes Status: Chronic Uncontrolled DM with hyperglycemia: Check A1C, basal insulin, prandial insulin, high correctional dose insulin. Monitor FS ACHS, ADA diet. Obtain A1C Qualifiers: Diabetes mellitus type: type 2 Diabetes mellitus complication status: with neurologic complications Diabetes mellitus complication detail: with unspecified neuropathy Diabetes mellitus alf insulin use: with alf use Qualified Code(s): E11.40 - Type 2 diabetes mellitus with diabetic neuropathy, unspecified; Z79.4 - [facility] (current) use of insulin (3) Hyperlipidemia Current visit: Yes Status: Chronic Continue home meds Qualifiers: Hyperlipidemia type: unspecified Qualified Code(s): E78.5 - Hyperlipidemia , unspecified (4) Hypertension Current visit: Yes Status: Chronic Resume home meds Qualifiers: Hypertension type: essential hypertension Qualified Code(s): I10 - Essential (primary) hypertension (5) Anxiety Current visit: Yes Status: Chronic Resume home meds Internal Medicine - H&P: HPI Chief complaint: Facial pain Admitted From: Home Plans for Post Hospital Care: Home History of present illness: 52 F with PMH of uncontrolled DM with Neuropathy, Depression/anxiety, GERD, HTN , Obesity She presented to the ER with complains of neck swelling and Left sided jaw pain that radiates to her L ear. She reported the pain as mostly dull but sometimes sharp with increased intensity. She denies jaw claudication and denies pain is related to chewing or extreme temperatures of food. She has had dental procedures in the past,. She denies scalp pain or tenderness, headaches, hx of polymyalgia rheumatic or any other rheumatologic disease. Her pain was 3/10 at time of review, after she had received multiple pain medications. She denies fever or chills, denies any respiratory/chest/abdominal or neurologic symptoms. She reports a history of Mumps Orchitis in the past. Work up in the ER revealed a leukocytosis with low MCV, ESR is >130, Chem with hyperglycemia, TSH WNL. CXR showed R LL atelectasis. Soft tissue neck CT was WNL. Her physical exam was remarkable for mild painful distress, L jaw tenderness with no obvious facial asymmetry or lesions. She is not tender on her scalp. She has very poor oral hygiene with multiple fillings/cavities on the L teeth. Her VSS. Chest is CTAB. Abdomen is benign. She has no pedal edema Past Med Surg Social Fam HX - Past Medical History Medical history: arthritis, asthma, diabetes, GERD, hyperlipidemia, hypertension , renal disease, other Psychiatric history: anxiety, depression, other - Past Surgical History Surgical History: appendectomy, cholecystectomy, hysterectomy, SONDRA/BSO, other - Social History Smoking Status: Never smoker Smokeless Tobacco Status: No Alcohol use: none Drug use: none - Family History Brother Hx Family Cardiac Disorders: Yes Sister Living Status: Mother Living Status: Hx Family Cardiac Disorders: Yes Hx Family Cancer: No (pancreatic, colon,) Hx Family Endocrine Disorder: Yes (diabetes) Hx Family HEENT Disorders: Yes Father Living Status: Hx Family Cardiac Disorders: Yes (MYOCARDIAL INFARCTION.) Hx Family HEENT Disorders: Yes Internal Medicine - H&P: Meds Aspirin 81 mg PO DAILY 05/23/15 [History] Citalopram [CeleXA] 40 mg PO BID 05/23/15 [History] Dicyclomine HCl [Bentyl] 20 mg PO TID PRN 05/23/15 [History] Gabapentin [Neurontin] 800 mg PO QID 05/23/15 [History] Pramipexole Di-HCl [Mirapex] 0.25 mg PO TID 05/23/15 [History] Tramadol HCl [Ultram] 50 mg PO Q6HR PRN 05/23/15 [History] Zolpidem Tartrate [Ambien] 10 mg PO HS 05/23/15 [History] Ondansetron HCl [Zofran] 4 mg PO Q8H PRN 01/21/17 [History] Insulin NPH, HUMAN [HumuLIN N] 70 unit SQ BID 30 Days mls 01/22/17 [Rx] Simvastatin [Zocor] 40 mg PO HS 30 Days tablet 01/22/17 [Rx] Glimepiride [Amaryl] 2 mg PO 00 07/11/17 [History] Insulin Human Regular [HumuLIN R] 30 unit SQ TIDWM 07/11/17 [History] Losartan Potassium [Cozaar] 100 mg PO DAILY 07/11/17 [History] Pantoprazole Sodium [Protonix] 40 mg PO BID 07/11/17 [History] Promethazine [Phenergan] 12.5 - 25 mg PO BID PRN 07/11/17 [History] Sucralfate [Carafate] 1 gm PO BID 07/11/17 [History] 3 Allergy/AdvReac Type Severity Reaction Status Date / Time latex AdvReac Cramping Verified 01/20/17 22:06 of the Muscles metformin AdvReac Diarrhea Verified 01/20/17 22:06 Sulfa (Sulfonamide AdvReac Vomiting Verified 01/20/17 22:06 Antibiotics) sulfamethoxazole AdvReac Vomiting Verified 01/20/17 22:06 [From Bactrim] trimethoprim [From Bactrim] AdvReac Vomiting Verified 01/20/17 22:06 All Systems PM: A 10-system review of systems was performed and is negative for pertinent findings except as documented above in the HPI. - Constitutional Constitutional: no chills, no fever(s), no night sweats - EENT Eyes: as per HPI, no change in vision, no discharge, no pain, no photophobia Ears: ear pain, no ear discharge, no tinnitus Nose, mouth and throat: as per HPI - Cardiovascular Cardiovascular ROS IM: no chest pain, no diaphoresis, no dyspnea, no lightheadedness, no palpitations, no syncope - Respiratory Respiratory: no cough, no dyspnea, no wheezing, no excessive phlegm production - Gastrointestinal Gastrointestinal: no abdominal pain, no diarrhea, no hematemesis, no hematochezia, no melena, no nausea, no vomiting - Genitourinary Genitourinary: no change in urinary stream, no dysuria, no flank pain, no hematuria - Musculoskeletal Musculoskeletal ROS IM: no numbness, no tingling - Integumentary Integumentary IM: no rash, no unusual bruising - Neurological Neurological ROS: no confusion, no convulsions, no focal weakness, no numbness, no tingling, no tremor(s) - Hematologic/Lymphatic Hematologic/Lymphatic: no easy bruising - Constitutional Vitals: Temp Pulse Resp BP Pulse Ox 89.3 F L 81 18 157/90 93 07/11/17 17:41 07/11/17 22:41 07/11/17 22:41 07/11/17 22:41 07/11/17 22:41 Her physical exam was remarkable for mild painful distress, L jaw tenderness with no obvious facial asymmetry or lesions. She is not tender on her scalp. She has very poor oral hygiene with multiple fillings/cavities on the L teeth. Her VSS. Chest is CTAB. Abdomen is benign. She has no pedal edema Internal Med - H&P Results - Labs CBC & Chem 7: 07/11/17 19:56 07/11/17 19:56 Labs: Short CBC 07/11/17 Range/Units 19:56 WBC 11.4 H (4.3-11.1) K/mcL Hgb 11.7 (11.5-15.4) g/dL Hct 35.9 (35.3-44.9) % Plt Count 254 (140-400) K/mcL Neutrophils # 8.5 (1.6-8.9) K/mcL BMP 07/11/17 19:56 Sodium 136 Potassium 4.0 Chloride 100 Carbon Dioxide 26 BUN 13 Creatinine 0.93 Glucose 206 H Calcium 9.9 - Impressions ITS Impressions Soft Tissue Neck CT 07/11/17 19:32 IMPRESSION: No acute abnormality of the neck identified. Absent submandibular glands. D/ / Mariano Tapia MD / Mariano Tapia MD Interpreting Provider: Mariano Tapia MD Chest X-Ray 07/11/17 19:41 IMPRESSION: Linear density in the lateral right lower lung may reflect scarring or partial atelectasis. Left lung is clear. D/ / Alireza Scott MD / Alireza Scott MD Interpreting Provider: Alireza Scott MD
[2017-07-12] MEDS ORDERED: Ketorolac 30 MG/ML VIAL IVP PRN (01:36)
[2017-07-12] MEDS ORDERED: Insulin LISPRO 300 UNITS/3 ML VIAL SQ SCH ×4 (07:30→21:00)
[2017-07-12] MEDS: Gabapentin 400 MG CAPSULE PO SCH ×4 (07:42→21:08)
[2017-07-12] MEDS: Aspirin 81 MG TAB.CHEW PO SCH (07:43)
[2017-07-12] MEDS: Insulin LISPRO 300 UNITS/3 ML VIAL SQ SCH ×5 (07:57→17:03)
[2017-07-12 08:19] LABS: BUN/Creatinine Ratio 16 (6-26); Blood Urea Nitrogen 17 mg/dL (7-20); Calcium 10.1 mg/dL (8.6-10.8); Carbon Dioxide 22 mEq/L (19-29); Chloride 98 mEq/L (98-109); Glucose 381 mg/dL (70-99); Osmolality,Calculated 297 (280-300); Potassium 4.1 mEq/L (3.5-4.5); Sodium 135 mEq/L (136-145); eGFR For African Americans > 60 (> 60); eGFR For Non-African Americans 54 (> 60)
[2017-07-12] MEDS ORDERED: predniSONE 20 MG TABLET PO SCH (09:00)
[2017-07-12] MEDS ORDERED: Insulin DETEMIR 100 UNIT/ML X5UNITS SQ SCH ×3 (09:00→21:00)
[2017-07-12 09:14] LABS: Basophils % 0.2 %; Hemoglobin 12.3 g/dL (11.5-15.4); Immature Granulocytes % 0.5 % (0-4); Lymphocytes # 0.9 K/mcL (0.6-4.6); Lymphocytes % 7.3 %; Mean Corpuscular HGB Conc 33.2 g/dL (31.6-35.5); Mean Corpuscular Hemoglobin 25.9 pg (28.0-33.3); Mean Corpuscular Volume 77.9 fL (83.0-100.0); Mean Platelet Volume 9.4 fL (9.4-12.4); Monocytes # 0.1 K/mcL (0.0-1.3); Monocytes % 0.5 %; Neutrophils # 11.8 K/mcL (1.6-8.9); Platelet Count 304 K/mcL (140-400); Red Blood Count 4.75 M/mcL (3.82-4.97); Segmented Neutrophils % 91.5 %
[2017-07-12] MEDS: Ampicillin/Sulbactam 3,000 MG in 0.9 % Sodium Chloride Mini Bag 100 ML IVPB SCH ×3 (11:54→23:39)
[2017-07-12] MEDS ORDERED: Insulin Human Regular 10 UNIT in 0.9 % Sodium Chloride 10 ML IV ONE (13:33)
--- NOTE | 2017-07-12 13:45 | ENT - Consult Note ---
<Herberth Malik - Last Filed: 07/12/17 14:09> Date of Encounter: 07/12/17 Time of Encounter: 13:42 Assessment and Plan (1) Jaw pain Status: Acute Her jaw pain is bilateral and worse on the left side; CT was negative for any soft tissue/bony abnormalities Most likely etiology of pain is dental as she has poor dental hygiene; unlikely parotitis in setting of negative scans, no drainage or palpable nodules Agree with IV Unasyn for anaerobic coverage She will need close follow up with dentist upon discharge and may benefit from panorex for further evaluation of teeth Would benefit from steroids to decrease inflammation History of Present Illness Consult date: 07/12/17 Reason for ENT Consult: other (facial pain) Requesting physician: Ana Luisa Chaves History of present illness: Patient is a 52 year old female who presents with bilateral facial pain and swelling that started 2 weeks ago and is progressively worsening. It is worse on the left side and not associated with eating, swallowing, ear pain. She notes that this pain is very similar to when she had parotid gland infection 3 years ago bilaterally. She was treated with IV antibiotics at that time and did not have any surgery of her face other than a tooth extraction roughly a year ago. Denies any fevers, chills, nausea, vomiting, diarrhea, chest pain, shortness of breath. Past Med Surg Social Fam HX - Past Medical History Medical history: arthritis, asthma, diabetes, GERD, hyperlipidemia, hypertension , renal disease, other Psychiatric history: anxiety, depression, other - Past Surgical History Surgical History: appendectomy, cholecystectomy, hysterectomy, SONDRA/BSO, other - Social History Smoking Status: Never smoker Smokeless Tobacco Status: No Alcohol use: none Drug use: none - Family History Brother Hx Family Cardiac Disorders: Yes Sister Living Status: Mother Living Status: Hx Family Cardiac Disorders: Yes Hx Family Cancer: No (pancreatic, colon,) Hx Family Endocrine Disorder: Yes (diabetes) Hx Family HEENT Disorders: Yes Father Living Status: Hx Family Cardiac Disorders: Yes (MYOCARDIAL INFARCTION.) Hx Family HEENT Disorders: Yes Medications and Allergies Aspirin 81 mg PO DAILY 05/23/15 [History] Citalopram [CeleXA] 40 mg PO BID 05/23/15 [History] Dicyclomine HCl [Bentyl] 20 mg PO TID PRN 05/23/15 [History] Gabapentin [Neurontin] 800 mg PO QID 05/23/15 [History] Pramipexole Di-HCl [Mirapex] 0.25 mg PO TID 05/23/15 [History] Tramadol HCl [Ultram] 50 mg PO Q6HR PRN 05/23/15 [History] Zolpidem Tartrate [Ambien] 10 mg PO HS 05/23/15 [History] Ondansetron HCl [Zofran] 4 mg PO Q8H PRN 01/21/17 [History] Insulin NPH, HUMAN [HumuLIN N] 70 unit SQ BID 30 Days mls 01/22/17 [Rx] Simvastatin [Zocor] 40 mg PO HS 30 Days tablet 01/22/17 [Rx] Glimepiride [Amaryl] 2 mg PO 0800 07/11/17 [History] Insulin Human Regular [HumuLIN R] 30 unit SQ TIDWM 07/11/17 [History] Losartan Potassium [Cozaar] 100 mg PO DAILY 07/11/17 [History] Pantoprazole Sodium [Protonix] 40 mg PO BID 07/11/17 [History] Promethazine [Phenergan] 12.5 - 25 mg PO BID PRN 07/11/17 [History] Sucralfate [Carafate] 1 gm PO BID 07/11/17 [History] Clindamycin HCl [Cleocin HCl] 150 mg PO QID #40 capsule 07/13/17 [Rx] Clindamycin HCl [Cleocin HCl] 300 mg PO QID #40 cap 07/13/17 [Rx] Lactobacillus [Culturelle] 1 each PO BID #20 cap.sprink 07/13/17 [Rx] predniSONE [PredniSONE] 20 mg PO DAILY #3 tablet 07/13/17 [Rx] 3 Allergy/AdvReac Type Severity Reaction Status Date / Time latex AdvReac Cramping Verified 01/20/17 22:06 of the Muscles metformin AdvReac Diarrhea Verified 01/20/17 22:06 Sulfa (Sulfonamide AdvReac Vomiting Verified 01/20/17 22:06 Antibiotics) sulfamethoxazole AdvReac Vomiting Verified 01/20/17 22:06 [From Bactrim] trimethoprim [From Bactrim] AdvReac Vomiting Verified 01/20/17 22:06 ENT - ROS - Constitutional Constitutional ROS: headache(s) (bilateral frontal), no daytime sleepiness, no fever(s), no lethargy, no stops breathing during sleep - EENT Nose, mouth and throat: headache(s), neck pain, no abnormal hearing, no dental pain, no dizziness, no dysphagia, no epistaxis, no mouth lesions - Cardiovascular Cardiovascular ROS IM: no chest pain, no dyspnea, no edema, no irregular heart rhythm, no syncope - Respiratory no cough, no dyspnea, no hemoptysis, no dyspnea on exertion, no wheezing, no snoring, no stridor, no pain on inspiration, no chest congestion, no change in phlegm color, no pain with cough - Gastrointestinal Gastrointestinal: no constipation, no diarrhea, no dysphagia, no nausea, no vomiting - Genitourinary Genitourinary ROS: no dysuria, no urinary frequency - Musculoskeletal Musculoskeletal ROS: numbness (in her feet), tingling, no abnormal gait, no muscle weakness - Integumentary Integumentary: no rash, no skin ulcer - Endocrine Endocrine: polydipsia, no cold intolerance, no deeping of the voice ENT Exam Initial Vital Signs Temp Pulse Resp BP Pulse Ox 89.3 F L 89 18 146/88 95 07/11/17 17:41 07/11/17 17:41 07/11/17 17:41 07/11/17 17:41 07/11/17 17:41 - General physical appearance well developed, well nourished, no distress, moderate pain, obese. negative: moderate distress, severe distress, severe pain, cachectic - Eyes PERRL - ENT normal pinna, normal nares, normal mucosa, no hearing loss, poor long term, atraumatic, normocephalic. negative: deviated nasal septum, nasal discharge - Neck no lymphadectomy, other (mild swelling of left face). negative: deviated trachea, diffuse goiter - Respiratory normal expansion, normal respiratory effort, clear to auscultation - Abdomen Abdomen: soft, non tender - Integumentary no rash, no growths - Neurologic normal coordination, normal sensation Exam Initial Vital Signs Temp Pulse Resp BP Pulse Ox 89.3 F L 89 18 146/88 95 07/11/17 17:41 07/11/17 17:41 07/11/17 17:41 07/11/17 17:41 07/11/17 17:41 Results - Labs 07/12/17 07:31 07/12/17 07:31 Abnormal lab results WBC 12.9 K/mcL (4.3-11.1) H 07/12/17 07:31 MCV 77.9 fL (83.0-100.0) L 07/12/17 07:31 MCH 25.9 pg (28.0-33.3) L 07/12/17 07:31 Neutrophils # 11.8 K/mcL (1.6-8.9) H 07/12/17 07:31 ESR >= 130 mm/hr (0-15) H 07/11/17 20:07 Sodium 135 mEq/L (136-145) L 07/12/17 07:31 Est GFR (Non-Af Amer) 54 (> 60) L 07/12/17 07:31 Glucose 381 mg/dL (70-99) H 07/12/17 07:31 POC Glucose 478 (58-89) H* 07/12/17 12:01 Hemoglobin A1c 10.0 % (-5.6) H 07/12/17 07:31 C-Reactive Protein 37 mg/L (Less than 5) H 07/11/17 20:07 Diabetes panel 07/12/17 07/12/17 Range/Units 07:31 07:31 Sodium 135 L (136-145) mEq/L Potassium 4.1 (3.5-4.5) mEq/L Chloride 98 (98-109) mEq/L Carbon Dioxide 22 (19-29) mEq/L BUN 17 (7-20) mg/dL Creatinine 1.07 (0.57-1.11) mg/dL Glucose 381 H (70-99) mg/dL Hemoglobin A1c 10.0 H ( - 5.6) % Calcium 10.1 (8.6-10.8) mg/dL Calcium panel 07/12/17 Range/Units 07:31 Calcium 10.1 (8.6-10.8) mg/dL Pituitary panel 07/12/17 Range/Units 07:31 Sodium 135 L (136-145) mEq/L Potassium 4.1 (3.5-4.5) mEq/L Chloride 98 (98-109) mEq/L Carbon Dioxide 22 (19-29) mEq/L BUN 17 (7-20) mg/dL Creatinine 1.07 (0.57-1.11) mg/dL Glucose 381 H (70-99) mg/dL Calcium 10.1 (8.6-10.8) mg/dL Adrenal panel 07/12/17 Range/Units 07:31 Sodium 135 L (136-145) mEq/L Potassium 4.1 (3.5-4.5) mEq/L Chloride 98 (98-109) mEq/L Carbon Dioxide 22 (19-29) mEq/L BUN 17 (7-20) mg/dL Creatinine 1.07 (0.57-1.11) mg/dL Glucose 381 H (70-99) mg/dL Calcium 10.1 (8.6-10.8) mg/dL All other labs normal. Consult Discharge Plan - Plan Instructions: Diabetes Mellitus Type 2 in Adults (DC), Anxiety (DC) Additional Instructions: please follow up with your dental surgeon as early as possible Referrals: Treva Gupta DO [Partnered Physician] - 07/18/17 9:30 am Prescriptions: Clindamycin HCl [Cleocin HCl] 150 mg PO QID #40 capsule Clindamycin HCl [Cleocin HCl] 300 mg PO QID #40 cap Lactobacillus [Culturelle] 1 each PO BID #20 cap.sprink predniSONE [PredniSONE] 20 mg PO DAILY #3 tablet <Piedad Hernandez - Last Filed: 07/13/17 16:55> Date of Encounter: 07/13/17 ENT Exam Initial Vital Signs Temp Pulse Resp BP Pulse Ox 89.3 F L 89 18 146/88 95 07/11/17 17:41 07/11/17 17:41 07/11/17 17:41 07/11/17 17:41 07/11/17 17:41 Exam Initial Vital Signs Temp Pulse Resp BP Pulse Ox 89.3 F L 89 18 146/88 95 07/11/17 17:41 07/11/17 17:41 07/11/17 17:41 07/11/17 17:41 07/11/17 17:41 Results - Labs 07/13/17 03:57 07/13/17 03:57 Abnormal lab results WBC 12.1 K/mcL (4.3-11.1) H 07/13/17 03:57 Hgb 11.0 g/dL (11.5-15.4) L 07/13/17 03:57 Hct 33.9 % (35.3-44.9) L 07/13/17 03:57 MCV 78.1 fL (83.0-100.0) L 07/13/17 03:57 MCH 25.3 pg (28.0-33.3) L 07/13/17 03:57 Neutrophils # 9.7 K/mcL (1.6-8.9) H 07/13/17 03:57 ESR >= 130 mm/hr (0-15) H 07/11/17 20:07 Glucose 345 mg/dL (70-99) H 07/13/17 03:57 POC Glucose 273 (58-89) H 07/13/17 12:33 Hemoglobin A1c 10.0 % (-5.6) H 07/12/17 07:31 C-Reactive Protein 37 mg/L (Less than 5) H 07/11/17 20:07 Diabetes panel 07/13/17 Range/Units 03:57 Sodium 136 (136-145) mEq/L Potassium 4.1 (3.5-4.5) mEq/L Chloride 101 (98-109) mEq/L Carbon Dioxide 23 (19-29) mEq/L BUN 19 (7-20) mg/dL Creatinine 0.94 (0.57-1.11) mg/dL Glucose 345 H (70-99) mg/dL Calcium 9.7 (8.6-10.8) mg/dL Calcium panel 07/13/17 Range/Units 03:57 Calcium 9.7 (8.6-10.8) mg/dL Pituitary panel 07/13/17 Range/Units 03:57 Sodium 136 (136-145) mEq/L Potassium 4.1 (3.5-4.5) mEq/L Chloride 101 (98-109) mEq/L Carbon Dioxide 23 (19-29) mEq/L BUN 19 (7-20) mg/dL Creatinine 0.94 (0.57-1.11) mg/dL Glucose 345 H (70-99) mg/dL Calcium 9.7 (8.6-10.8) mg/dL Adrenal panel 07/13/17 Range/Units 03:57 Sodium 136 (136-145) mEq/L Potassium 4.1 (3.5-4.5) mEq/L Chloride 101 (98-109) mEq/L Carbon Dioxide 23 (19-29) mEq/L BUN 19 (7-20) mg/dL Creatinine 0.94 (0.57-1.11) mg/dL Glucose 345 H (70-99) mg/dL Calcium 9.7 (8.6-10.8) mg/dL All other labs normal. - Attending Attestation Agree with resident's assessment and plan. Patient was seen in exam and independently by myself. I do not see any evidence of parotitis on clinical exam or CT or any infection of the ear causing patient's pain. Patient with pain on palpation of the gingiva and significant pain at the angle of the mandible on palpation. It appears that her pain is more dental in origin. Would recommend patient to have a Panorex and to follow-up with her dentist or oral surgeon for further evaluation and treatment.
--- NOTE | 2017-07-12 16:24 | Event Note ---
Date of Encounter: 07/12/17 Time of Encounter: 11:15 Patient continues to have pain over the left side of her face and jaw region. Feels somewhat better after she received steroid injection yesterday. No fever or chills reported. Blood sugars are a severely elevated. We will increase insulin regimen. Also place patient on Unasyn for possible dental abscess. Facial bone CT does not show any abnormalities but unable to get Panorex here. Consulted ENT and will follow recommendations.
[2017-07-13 05:25] LABS: Basophils % 0.1 %; Eosinophils % 0.2 %; Hematocrit 33.9 % (35.3-44.9); Immature Granulocytes % 0.7 % (0-4); Lymphocytes # 1.7 K/mcL (0.6-4.6); Lymphocytes % 13.9 %; Mean Corpuscular HGB Conc 32.4 g/dL (31.6-35.5); Mean Corpuscular Hemoglobin 25.3 pg (28.0-33.3); Mean Corpuscular Volume 78.1 fL (83.0-100.0); Mean Platelet Volume 9.5 fL (9.4-12.4); Monocytes # 0.6 K/mcL (0.0-1.3); Monocytes % 4.7 %; Neutrophils # 9.7 K/mcL (1.6-8.9); Platelet Count 261 K/mcL (140-400); Red Blood Count 4.34 M/mcL (3.82-4.97); Red Cell Distribution Width 14.2 % (11.5-14.5); Segmented Neutrophils % 80.4 %
[2017-07-13] MEDS: Ampicillin/Sulbactam 3,000 MG in 0.9 % Sodium Chloride Mini Bag 100 ML IVPB SCH ×2 (05:49→12:23)
[2017-07-13 05:54] LABS: BUN/Creatinine Ratio 20 (6-26); Blood Urea Nitrogen 19 mg/dL (7-20); Calcium 9.7 mg/dL (8.6-10.8); Carbon Dioxide 23 mEq/L (19-29); Chloride 101 mEq/L (98-109); Glucose 345 mg/dL (70-99); Osmolality,Calculated 298 (280-300); Potassium 4.1 mEq/L (3.5-4.5); Sodium 136 mEq/L (136-145); eGFR For African Americans > 60 (> 60); eGFR For Non-African Americans > 60 (> 60)
--- NOTE | 2017-07-13 08:09 | Electrocardiograph Report ---
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
[2017-07-13] MEDS: Gabapentin 400 MG CAPSULE PO SCH ×2 (08:25→12:24)
[2017-07-13] MEDS: Aspirin 81 MG TAB.CHEW PO SCH (08:26)
[2017-07-13] MEDS: Insulin LISPRO 300 UNITS/3 ML VIAL SQ SCH ×4 (08:27→12:33)
[2017-07-13] MEDS ORDERED: Insulin DETEMIR 100 UNIT/ML X5UNITS SQ SCH (09:00)
[2017-07-13] MEDS ORDERED: predniSONE 20 MG TABLET PO SCH (09:00)
[2017-07-13 10:36] VITALS: BP 137/87
--- NOTE | 2017-07-13 12:03 | Discharge Summary ---
Date of Encounter: 07/13/17 Time of Encounter: 11:32 - Discharge Diagnosis (1) Jaw pain Priority: Primary Status: Acute Comments: Suspected dental abscess (2) Anxiety Priority: Secondary Status: Chronic (3) Diabetes type 2, uncontrolled Priority: Secondary Status: Acute Qualifiers: Diabetes mellitus complication status: with hyperglycemia Diabetes mellitus rn long term care insulin use: with rn long term care use Qualified Code(s): E11.65 - Type 2 diabetes mellitus with hyperglycemia; Z79.4 - senior living (current) use of insulin (4) Facial pain Priority: Secondary Status: Acute (5) Hyperlipidemia Priority: Secondary Status: Chronic Qualifiers: Hyperlipidemia type: unspecified Qualified Code(s): E78.5 - Hyperlipidemia , unspecified (6) Hypertension Priority: Secondary Status: Chronic Qualifiers: Hypertension type: essential hypertension Qualified Code(s): I10 - Essential (primary) hypertension - Discharge Medications Prescriptions: Clindamycin HCl [Cleocin HCl] 150 mg PO QID #40 capsule Clindamycin HCl [Cleocin HCl] 300 mg PO QID #40 cap Lactobacillus [Culturelle] 1 each PO BID #20 cap.sprink predniSONE [PredniSONE] 20 mg PO DAILY #3 tablet Home Medications: Aspirin 81 mg PO DAILY 05/23/15 [History] Citalopram [CeleXA] 40 mg PO BID 05/23/15 [History] Dicyclomine HCl [Bentyl] 20 mg PO TID PRN 05/23/15 [History] Gabapentin [Neurontin] 800 mg PO QID 05/23/15 [History] Pramipexole Di-HCl [Mirapex] 0.25 mg PO TID 05/23/15 [History] Tramadol HCl [Ultram] 50 mg PO Q6HR PRN 05/23/15 [History] Zolpidem Tartrate [Ambien] 10 mg PO HS 05/23/15 [History] Ondansetron HCl [Zofran] 4 mg PO Q8H PRN 01/21/17 [History] Insulin NPH, HUMAN [HumuLIN N] 70 unit SQ BID 30 Days mls 01/22/17 [Rx] Simvastatin [Zocor] 40 mg PO HS 30 Days tablet 01/22/17 [Rx] Glimepiride [Amaryl] 2 mg PO 0800 07/11/17 [History] Insulin Human Regular [HumuLIN R] 30 unit SQ TIDWM 07/11/17 [History] Losartan Potassium [Cozaar] 100 mg PO DAILY 07/11/17 [History] Pantoprazole Sodium [Protonix] 40 mg PO BID 07/11/17 [History] Promethazine [Phenergan] 12.5 - 25 mg PO BID PRN 07/11/17 [History] Sucralfate [Carafate] 1 gm PO BID 07/11/17 [History] Clindamycin HCl [Cleocin HCl] 150 mg PO QID #40 capsule 07/13/17 [Rx] Clindamycin HCl [Cleocin HCl] 300 mg PO QID #40 cap 07/13/17 [Rx] Lactobacillus [Culturelle] 1 each PO BID #20 cap.sprink 07/13/17 [Rx] predniSONE [PredniSONE] 20 mg PO DAILY #3 tablet 07/13/17 [Rx] Allergies/Adverse Reactions: 3 Allergy/AdvReac Type Severity Reaction Status Date / Time latex AdvReac Cramping Verified 01/20/17 22:06 of the Muscles metformin AdvReac Diarrhea Verified 01/20/17 22:06 Sulfa (Sulfonamide AdvReac Vomiting Verified 01/20/17 22:06 Antibiotics) sulfamethoxazole AdvReac Vomiting Verified 01/20/17 22:06 [From Bactrim] trimethoprim [From Bactrim] AdvReac Vomiting Verified 01/20/17 22:06 Procedures/tests Complete & Pending: Procedures Performed prior 72 hours Category Date Time Status facial CT [CT facial bones wo con] [CT] Stat Cat Scan 07/12/17 08:30 Completed - Notes to Outpatient Provider Please consider decreasing dosage of Citalopram. Date of admission: 07/12/17 01:18 Primary care physician: Alfredo Cummings Jr, MD Consults: 07/12/17 11:35 Consult to ENT [CONS] Routine Consulting Provider: ENT [facility] Reason for Consult: Facial swelling/ pain Time Notified: 11:35 Call Completed: Yes Discharging clinician: Ana Luisa Chaves Anticipated date of discharge: 07/13/17 - Patient Status Disposition: Home, Self-Care Condition: Good Functional capacity at discharge: independent ambulation Overall status at discharge: patient is progressing back to baseline - Discharge Instructions Instructions: Diabetes Mellitus Type 2 in Adults (DC), Anxiety (DC) Follow Up With: Treva Gupta DO [Partnered Physician] - 07/18/17 9:30 am Additional Instructions: please follow up with your dental surgeon as early as possible - Diet and Activity Activity: as per physical therapy Diet: diabetic diet, low fat, low cholesterol, low salt diet Hospital course: Ms. Prakash is a 52 year old female patient with a history of diabetes mellitus with neuropathy, anxiety disorder, hypertension who presented to the ER with complaints of left-sided jaw pain that radiates to her ear along with some neck swelling. Blood work done here showed leukocytosis and patient had an elevated ESR of greater than 130. She was having jaw tenderness with no signs of facial erythema or cellulitis. CT scan of the face and soft tissues of the neck did not show any abscess. ENT was consulted and they recommended discharging patient on short course of steroid treatment along with antibiotics and have her follow up with dentist for possible dental abscess. Patient's symptoms did improve after she was started on steroids. She can follow up further with her primary care provider. Patient did not have any symptoms suggestive of temporal arteritis and it is unclear as to why her ESR is so elevated. She may need to follow up further with dermatology for further evaluation. Also of note patient is on citalopram 40 mg by mouth twice a day which is higher than usual recommended dosage for this medication. I do recommend decreasing the tapering this down to 40 mg to 60 mg by mouth daily. - Time Spent with Patient Total time spent providing and/or coordinating discharge services: Less than 30 minutes (25 min) - Constitutional Vitals: Temp Pulse Resp BP Pulse Ox 98.0 F 83 16 137/87 95 07/13/17 10:33 07/13/17 10:33 07/13/17 10:33 07/13/17 10:33 07/13/17 10:33 General appearance: Present: cooperative, A&O X 3, no acute distress, answers questions appropriately - Eye Eye exam: Present: EOMI, PERRL, conjuntiva pink, sclera anicteric - ENT ENT exam: Present: mucous membranes moist Additional comments: no tenderness to palpation over mandibular or maxillary regions today - Neck Neck exam general surgery: Present: supple, trachea midline. Absent: lymphadenopathy - Respiratory Respiratory exam: Present: CTAB. Absent: accessory muscle use, rales, rhonchi, wheezes - Cardiovascular Cardiovascular exam: Present: RRR, +S1, +S2. Absent: diastolic murmur, gallop, rubs, systolic murmur - GI/Abdominal GI/Abdominal exam: Present: normal bowel sounds, soft, no peritoneal signs. Absent: distended, tenderness - Extremities Exam Extremities exam: Present: warm, radial pulses palpable and symmetrical. Absent : calf tenderness, cyanotic, pedal edema - Neurological Exam Neurological exam: Present: alert, oriented X3, no focal deficits. Absent: facial droop, speech deficit - Skin Skin exam: Present: dry, intact
[2017-07-13] MEDS ORDERED: FLUARIX QUAD 2017-18 36MOS UP/PF 0.5 ML SYRINGE IM ONE (15:19)
== END 2017-07-13 15:47 | disposition home or self-care (01) ==
LOC: EMEROO 17:17 → 3BNU 17:17 → SUATTDRO 07-12 01:18 → 3ANU 07-12 06:22
PROVIDERS: ADMIT Internal Medicine; ATTEND Internal Medicine

== ENCOUNTER 2017-11-15 15:09 | Observation (INO) ==
[2017-11-15] MEDS ORDERED: Ketamine *HR* 500 MG/10 ML MDV IV STA (15:23)
[2017-11-15] MEDS ORDERED: 0.9 % Sodium Chloride 1,000 ML IVC ONE (15:25)
[2017-11-15] MEDS ORDERED: 0.9 % Sodium Chloride Mini Bag 100 ML ONE ×2 (15:42→17:53)
[2017-11-15] MEDS: *HR* HYDROmorphone (PF) 1 MG/ML SYRINGE IVP PRN ×2 (15:46→16:51)
[2017-11-15 15:49] LABS: Basophils % 0.2 %; Eosinophils # 0.2 K/mcL (0.0-0.6); Eosinophils % 1.3 %; Hematocrit 40.5 % (35.3-44.9); Hemoglobin 13.1 g/dL (11.5-15.4); Immature Granulocytes % 0.4 % (0-4); Lymphocytes # 1.9 K/mcL (0.6-4.6); Lymphocytes % 14.4 %; Mean Corpuscular HGB Conc 32.3 g/dL (31.6-35.5); Mean Corpuscular Hemoglobin 25.3 pg (28.0-33.3); Mean Corpuscular Volume 78.3 fL (83.0-100.0); Mean Platelet Volume 8.7 fL (9.4-12.4); Monocytes # 0.4 K/mcL (0.0-1.3); Monocytes % 3.2 %; Neutrophils # 10.7 K/mcL (1.6-8.9); Platelet Count 267 K/mcL (140-400); Red Blood Count 5.17 M/mcL (3.82-4.97); Red Cell Distribution Width 13.4 % (11.5-14.5); Segmented Neutrophils % 80.5 %
[2017-11-15 15:57] LABS: Calcium 9.5 mg/dL (8.6-10.3); Carbon Dioxide 29 mEq/L (23-29); Chloride 103 mEq/L (98-107); Potassium 3.8 mEq/L (3.5-5.1); Sodium 139 mEq/L (136-145)
[2017-11-15 15:59] LABS: Immature Reticulocyte % 16.5 % (11.0-38.0); Retculocyte # 0.08 M/mcL (0.05-0.10); Reticulocyte % 1.5 % (1.6-2.8)
[2017-11-15 16:02] LABS: BUN/Creatinine Ratio 14 (6-26); Blood Urea Nitrogen 11 mg/dL (6-20); Glucose 182 mg/dL (70-105); Osmolality,Calculated 292 (280-300); eGFR For African Americans > 60 (> 60); eGFR For Non-African Americans > 60 (> 60)
--- NOTE | 2017-11-15 16:06 | Emergency Department Note ---
Disposition Clinical Impression: Pyelonephritis, Hx of sickle cell disease Abdominal pain Qualifiers: Abdominal location: unspecified location Qualified Code(s): R10.9 - Unspecified abdominal pain Disposition: Admitted As Inpatient Condition: Fair Time of Disposition: 18:25 Abdominal Pain HPI - General Chief Complaint: ED Abdominal Pain Stated Complaint: Enlarged spleen(Dr. Garcia sent) Time Seen by Provider: 11/15/17 15:23 Source: patient Mode of arrival: ambulatory Limitations: no limitations Nursing Notes Reviewed: Yes Vital Signs Reviewed: Yes - History of Present Illness HPI Narrative: 52-year-old female with history of sickle cell trait presents for evaluation of left upper quadrant pain. Patient states onset was approximately a week ago. Denies any associated symptoms. Patient does note some nausea but no vomiting. Patient also noted worsening pain with deep inspiration. No fevers or cough. Patient states that she has never had any issues with her sickle cell in the past. Denies any trauma associated with her abdomen. Does state that she has had her gallbladder removed. Reports some diarrhea but no constipation. Patient also notes some urinary symptoms with dysuria. Pain Scale: 10 - Related Data Home Medications Medication Instructions Recorded Confirmed Aspirin 81 mg PO DAILY 05/23/15 07/11/17 Citalopram [CeleXA] 40 mg PO BID 05/23/15 07/11/17 Dicyclomine HCl [Bentyl] 20 mg PO TID PRN 05/23/15 07/11/17 Gabapentin [Neurontin] 800 mg PO QID 05/23/15 07/11/17 Pramipexole Di-HCl [Mirapex] 0.25 mg PO TID 05/23/15 07/11/17 Tramadol HCl [Ultram] 50 mg PO Q6HR PRN 05/23/15 07/11/17 Zolpidem Tartrate [Ambien] 10 mg PO HS 05/23/15 07/11/17 Ondansetron HCl [Zofran] 4 mg PO Q8H PRN 01/21/17 07/11/17 Glimepiride [Amaryl] 2 mg PO 0800 07/11/17 07/11/17 Insulin Human Regular [HumuLIN R] 30 unit SQ TIDWM 07/11/17 07/11/17 Losartan Potassium [Cozaar] 100 mg PO DAILY 07/11/17 07/11/17 Pantoprazole Sodium [Protonix] 40 mg PO BID 07/11/17 07/11/17 Promethazine [Phenergan] 12.5 - 25 mg PO BID PRN 07/11/17 07/11/17 Sucralfate [Carafate] 1 gm PO BID 07/11/17 07/11/17 Previous Rx's Medication Instructions Recorded Insulin NPH, HUMAN [HumuLIN N] 70 unit SQ BID 30 Days mls 01/22/17 Simvastatin [Zocor] 40 mg PO HS 30 Days tablet 01/22/17 Clindamycin HCl [Cleocin HCl] 150 mg PO QID #40 capsule 07/13/17 Clindamycin HCl [Cleocin HCl] 300 mg PO QID #40 cap 07/13/17 Lactobacillus [Culturelle] 1 each PO BID #20 cap.sprink 07/13/17 predniSONE [PredniSONE] 20 mg PO DAILY #3 tablet 07/13/17 Allergies Allergy/AdvReac Type Severity Reaction Status Date / Time latex AdvReac Cramping Verified 01/20/17 22:06 of the Muscles metformin AdvReac Diarrhea Verified 01/20/17 22:06 Sulfa (Sulfonamide AdvReac Vomiting Verified 01/20/17 22:06 Antibiotics) sulfamethoxazole AdvReac Vomiting Verified 01/20/17 22:06 [From Bactrim] trimethoprim [From Bactrim] AdvReac Vomiting Verified 01/20/17 22:06 All systems ED: reviewed and negative except as stated. Constitutional: Reports: as per HPI. Denies: fever Eyes: Reports: as per HPI ENT ED: Reports: as per HPI Cardiovascular: Reports: as per HPI. Denies: chest pain Respiratory: Reports: as per HPI. Denies: cough, dyspnea Gastrointestinal: Reports: as per HPI, abdominal pain, nausea. 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 Absent: scleral icterus - ENT ENT exam: normal exam, normal oropharynx - Neck Neck exam: Present: normal inspection - Chest Chest inspection: Present: normal inspection - Respiratory Respiratory exam: Present: normal lung sounds bilaterally. Absent: respiratory distress - Cardiovascular Cardiovascular exam: Present: regular rate, normal rhythm. Absent: systolic murmur - Abdominal Exam Abdominal exam: Present: soft, tenderness (Left flank pain). Absent: distention , guarding, rebound - Extremities Exam Extremities exam: Present: normal inspection. Absent: pedal edema - Back Exam Back exam: Present: normal inspection - Neurological Exam Neurological exam: Present: alert, oriented X3 - Skin Skin exam: Present: warm, dry, intact, normal color Course Course Narrative: Patient will get basic lab work as well as imaging with CTA of the chest and CT of the abdomen and pelvis. - Reevaluation(s) Reevaluation #1: Patient seen and examined. Noted to have pain controlled. Time: 17:31 Vital Signs Temperature 98.8 F 11/15/17 15:16 Pulse Rate 100 11/15/17 15:16 Respiratory Rate 16 11/15/17 15:16 Blood Pressure 136/83 11/15/17 15:16 O2 Sat by Pulse Oximetry 98 11/15/17 15:16 Temperature 98.8 F 11/15/17 15:16 Pulse Rate 115 11/15/17 17:36 Respiratory Rate 20 11/15/17 15:55 Blood Pressure 117/74 11/15/17 17:36 O2 Sat by Pulse Oximetry 96 11/15/17 17:36 Oxygen Delivery Oxygen Delivery Room Air Abdominal Pain - MDM Narrative Medical decision making narrative: 52-year-old female presents for evaluation of left upper quadrant pain. Patient does have a history of sickle cell trait. Patient was given escalating doses of pain medicine. Patient had a CT of the chest and abdomen and pelvis. No acute findings were noted. The patient does have gross abnormalities in the urine. Given the patient's presentation she will be treated for pyelonephritis. Given the escalating dose of pain medication the patient will be admitted to the hospice service further ideation monitoring. Patient did have some atelectatic changes on CTA of the chest without any cough did not correlate clinically with pneumonia. - Lab Data Lab results reviewed: Yes I reviewed the patient's lab results. Result diagrams: 11/15/17 15:38 11/15/17 15:38 Lab Results 11/15/17 11/15/17 11/15/17 Range/Units 15:38 15:38 15:38 WBC 13.2 H (4.3-11.1) K/mcL RBC 5.17 H (3.82-4.97) M/mcL Hgb 13.1 (11.5-15.4) g/dL Hct 40.5 (35.3-44.9) % MCV 78.3 L (83.0-100.0) fL MCH 25.3 L (28.0-33.3) pg MCHC 32.3 (31.6-35.5) g/dL RDW 13.4 (11.5-14.5) % Plt Count 267 (140-400) K/mcL MPV 8.7 L (9.4-12.4) fL Reticulocyte # (0.05-0.10) M/mcL Immature Gran % 0.4 (0-4) % Seg Neutrophils % 80.5 % Lymphocytes % 14.4 % Monocytes % 3.2 % Eosinophils % 1.3 % Basophils % 0.2 % Neutrophils # 10.7 H (1.6-8.9) K/mcL Lymphocytes # 1.9 (0.6-4.6) K/mcL Monocytes # 0.4 (0.0-1.3) K/mcL Eosinophils # 0.2 (0.0-0.6) K/mcL Basophils # 0.0 (0.0-0.2) K/mcL Percent Retic (1.6-2.8) % Immature Retic Fraction (11.0-38.0) % Retic Hgb Equivalent (28.61-36.33) pg Sodium 139 (136-145) mEq/L Potassium 3.8 (3.5-5.1) mEq/L Chloride 103 (98-107) mEq/L Carbon Dioxide 29 (23-29) mEq/L BUN 11 (6-20) mg/dL Creatinine 0.77 (0.60-1.20) mg/dL Est GFR ( Amer) > 60 (> 60) Est GFR (Non-Af Amer) > 60 (> 60) BUN/Creatinine Ratio 14 (6-26) Glucose 182 H (70-105) mg/dL Calculated Osmolality 292 (280-300) Lactic Acid 1.6 (0.5-2.2) mmol/L Calcium 9.5 (8.6-10.3) mg/dL Urine Color (Yellow) Urine Clarity (Clear) Urine pH (5.0-8.0) pH Units Ur Specific [place] (1.010-1.025) Urine Protein (Neg-Trace) mg/dL Urine Glucose (UA) (Normal) mg/dL Urine Ketones (Negative) mg/dL Urine Blood (Negative) Urine Nitrite (Negative) Urine Bilirubin (Negative) Urine Urobilinogen (Normal) mg/dL Ur Leukocyte Esterase (Negative) Urine Microscopic RBC (0-3) per hpf Urine Microscopic WBC (0-3) per hpf Ur Squamous Epith Cells (None-Few) per lpf Urine Bacteria (None-Few) per hpf Hyaline Casts (None-Few) per lpf Blood Type Antibody Screen 11/15/17 11/15/17 11/15/17 Range/Units 15:38 15:40 18:00 WBC (4.3-11.1) K/mcL RBC (3.82-4.97) M/mcL Hgb (11.5-15.4) g/dL Hct (35.3-44.9) % MCV (83.0-100.0) fL MCH (28.0-33.3) pg MCHC (31.6-35.5) g/dL RDW (11.5-14.5) % Plt Count (140-400) K/mcL MPV (9.4-12.4) fL Reticulocyte # 0.08 (0.05-0.10) M/mcL Immature Gran % (0-4) % Seg Neutrophils % % Lymphocytes % % Monocytes % % Eosinophils % % Basophils % % Neutrophils # (1.6-8.9) K/mcL Lymphocytes # (0.6-4.6) K/mcL Monocytes # (0.0-1.3) K/mcL Eosinophils # (0.0-0.6) K/mcL Basophils # (0.0-0.2) K/mcL Percent Retic 1.5 L (1.6-2.8) % Immature Retic Fraction 16.5 (11.0-38.0) % Retic Hgb Equivalent 30.1 (28.61-36.33) pg Sodium (136-145) mEq/L Potassium (3.5-5.1) mEq/L Chloride (98-107) mEq/L Carbon Dioxide (23-29) mEq/L BUN (6-20) mg/dL Creatinine (0.60-1.20) mg/dL Est GFR ( Amer) (> 60) Est GFR (Non-Af Amer) (> 60) BUN/Creatinine Ratio (6-26) Glucose (70-105) mg/dL Calculated Osmolality (280-300) Lactic Acid (0.5-2.2) mmol/L Calcium (8.6-10.3) mg/dL Urine Color Yellow (Yellow) Urine Clarity Clear (Clear) Urine pH 6.0 (5.0-8.0) pH Units Ur Specific [place] > 1.030 H (1.010-1.025) Urine Protein Negative (Neg-Trace) mg/dL Urine Glucose (UA) Normal (Normal) mg/dL Urine Ketones Negative (Negative) mg/dL Urine Blood Negative (Negative) Urine Nitrite Positive A (Negative) Urine Bilirubin Negative (Negative) Urine Urobilinogen Normal (Normal) mg/dL Ur Leukocyte Esterase Small H (Negative) Urine Microscopic RBC 3-5 H (0-3) per hpf Urine Microscopic WBC 15-30 H (0-3) per hpf Ur Squamous Epith Cells Many H (None-Few) per lpf Urine Bacteria Many H (None-Few) per hpf Hyaline Casts None Seen (None-Few) per lpf Blood Type O POSITIVE Antibody Screen NEGATIVE - Radiology Data Radiology results reviewed: Yes I reviewed the patient's radiology results. Abdomen/Pelvis CT 11/15/17 15:32 IMPRESSION: No acute findings. D/ / Marianela Paul MD / Marianela Paul MD Interpreting Provider: Marianela Paul MD Chest CTA 11/15/17 15:44 IMPRESSION: No evidence of pulmonary embolism or aortic dissection. Patchy airspace disease right lung base, atelectasis versus less likely pneumonia. D/ / Keaton Miller MD / Keaton Miller MD Interpreting Provider: Keaton Miller MD Must[place] - [place] Situation: Demographics Background: Presenting Complaint Assessment: Vital Signs, Course and respsone to treatment, Patient/Family Expectation Recommendation: Barrier(s) to disposition, Recommendation based on pending studies, treatments, or consults SNj Report Given to: Hospitalist [place] Repor Time: 18:11 Attestation Statement - Attestation Attestation: I examined this patient and my medical decision-making was reviewed with the Resident Physician. I agree with the documented findings, disposition and treatment plan as described except to the extent set forth below. Pain aggressively managed in ED. 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 Dr. Harman was also concerned re possible PE - less likely, but a reasonable concern that deserved evaluation. Work up negative except for UA suggestive of infection - given the totality of the picture, pyelonephritis is as likely a source of her pain as any. Antibiotics started. Pt treated with Dilaudid, Ketamine (2 doses each), Toradol and Acetaminophen in ED - still having significant discomfort. Admit for pain management, further evaluation. Critical care time: I was directly and primarily involved in the care of this patient for 40 minutes excluding procedures.
[2017-11-15] MEDS ORDERED: Ketamine *HR* 500 MG/10 ML MDV IV ONE (17:41)
[2017-11-15] MEDS ORDERED: Ketorolac 15 MG/ML VIAL IVP STA (17:41)
[2017-11-15 18:14] LABS: Bilirubin,Urine Negative (Negative); Blood,Urine Negative (Negative); Clarity,Urine Clear (Clear); Color,Urine Yellow (Yellow); Glucose,Urine (UA) Normal (Normal); Ketones,Urine Negative (Negative); Leukocyte Esterase,Urine Small (Negative); Nitrite,Urine Positive (Negative); Protein,Urine Negative (Neg-Trace); Specific Gravity,Urine > 1.030 (1.010-1.025); Urobilinogen,Urine Normal (Normal)
[2017-11-15 18:17] LABS: Bacteria,Urine Many per hpf (None-Few); Hyaline Casts,Urine None Seen per lpf (None-Few); Squamous Epithelial Cell,Urine Many per lpf (None-Few); WBC,Urine 15-30 per hpf (0-3)
[2017-11-15] MEDS ORDERED: cefTRIAXone 1,000 MG in Water for inj. (sterile) 20 ML 10 ML IVP ONE (18:24)
[2017-11-15] MEDS ORDERED: Ondansetron ODT 4 MG TAB.RAPDIS PO PRN (20:45)
[2017-11-15] MEDS ORDERED: Ondansetron 4 MG/2 ML VIAL IVP PRN (20:47)
[2017-11-15] MEDS ORDERED: Naloxone 0.4 MG/ML INJ IVP PRN (20:47)
[2017-11-15] MEDS ORDERED: D5% in Water 1,000 ML IVC PRN (20:56)
[2017-11-15] MEDS ORDERED: Dextrose Gel 15 GM/37.5 ML TUBE PO PRN ×2 (20:56)
[2017-11-15] MEDS ORDERED: *HR* Dextrose 50 % in Water (Syg) 50 ML SYRINGE IVP PRN (20:56)
--- NOTE | 2017-11-15 20:56 | Internal Med History&Physical ---
Date of Encounter: 11/15/17 Time of Encounter: 20:52 Assessment and Plan (1) Pyelonephritis Current visit: Yes Status: Acute likely pyelo (alternate dx of MSK given exam). Will monitor improvement with empiric rocephin. send urine cx IVF Pain only controlled by ketamine and dilaudid given in the ED (2) Hypertension Current visit: No Status: Chronic Qualifiers: Hypertension type: essential hypertension Qualified Code(s): I10 - Essential (primary) hypertension (3) Anxiety Current visit: No Status: Chronic continue med (4) Diabetes 1.5, managed as type 1 Current visit: Yes Status: Acute continue insulin per home regimen Internal Medicine - H&P: HPI Chief complaint: Right flank/back pain History of present illness: Ms. Prakash is a 52 year old female who presents with Right flank/back pain. Suspect left pyelonephritis (vs. MSK pain). She presents with 1 week hx of left flank tenderness, 10/10, sharp, worsen with movement and palpation. She woke up with Had seen Dr Garcia today and reported symptoms and was advised to present to the ED for eval. She reports a hx of frequent UTI, has some dysuria and has baseline incontinence in the last 6 -7 years. She has a hx of DMII on insulin, sickle cell trait, RLS. CT/CT angio chest IMPRESSION: No evidence of pulmonary embolism or aortic dissection. Patchy airspace disease right lung base, atelectasis versus less likely pneumonia. CT/CT abd pelvis w iv no oral IMPRESSION: No acute findings. Past Med Surg Social Fam HX - Past Medical History Medical history: arthritis, diabetes, GERD, hyperlipidemia, hypertension, renal disease Psychiatric history: anxiety, depression - Past Surgical History Surgical History: appendectomy, cholecystectomy, hysterectomy, SONDRA/BSO, other - Social History Smoking Status: Never smoker Smokeless Tobacco Status: No Alcohol use: none Drug use: none - Family History Brother Hx Family Cardiac Disorders: Yes Sister Living Status: Mother Living Status: Hx Family Cardiac Disorders: Yes Hx Family Cancer: No (pancreatic, colon,) Hx Family Endocrine Disorder: Yes (diabetes) Hx Family HEENT Disorders: Yes Father Living Status: Hx Family Cardiac Disorders: Yes (MYOCARDIAL INFARCTION.) Hx Family HEENT Disorders: Yes Internal Medicine - H&P: Meds Aspirin 81 mg PO DAILY 05/23/15 [History] Citalopram [CeleXA] 40 mg PO BID 05/23/15 [History] Dicyclomine HCl [Bentyl] 20 mg PO TID PRN 05/23/15 [History] Gabapentin [Neurontin] 800 mg PO QID 05/23/15 [History] Pramipexole Di-HCl [Mirapex] 0.25 mg PO TID 05/23/15 [History] Tramadol HCl [Ultram] 50 mg PO Q6HR PRN 05/23/15 [History] Zolpidem Tartrate [Ambien] 10 mg PO HS 05/23/15 [History] Ondansetron HCl [Zofran] 4 mg PO Q8H PRN 01/21/17 [History] Simvastatin [Zocor] 40 mg PO HS 30 Days tablet 01/22/17 [Rx] Glimepiride [Amaryl] 2 mg PO 0800 07/11/17 [History] Losartan Potassium [Cozaar] 100 mg PO DAILY 07/11/17 [History] Pantoprazole Sodium [Protonix] 40 mg PO BID 07/11/17 [History] Promethazine [Phenergan] 12.5 - 25 mg PO BID PRN 07/11/17 [History] Sucralfate [Carafate] 1 gm PO BID 07/11/17 [History] Lactobacillus [Culturelle] 1 each PO BID #20 cap.sprink 07/13/17 [Rx] ALPRAZolam [Xanax 0.5 MG Tablet] 0.5 mg PO TID PRN 11/15/17 [History] Cholecalciferol (Vitamin D3) [Vitamin D3] 5,000 unit PO DAILY 11/15/17 [History] Exenatide [Byetta] 5 mcg SQ BID 11/15/17 [History] Insulin Glargine,Hum.rec.anlog [Basaglar Kwikpen U-100] 70 unit SQ HS 11/15/17 [ History] Insulin LISPRO [Humalog Kwikpen U-100] 0 unit SQ TIDWM 11/15/17 [History] 3 Allergy/AdvReac Type Severity Reaction Status Date / Time latex AdvReac Cramping Verified 01/20/17 22:06 of the Muscles metformin AdvReac Diarrhea Verified 01/20/17 22:06 Sulfa (Sulfonamide AdvReac Vomiting Verified 01/20/17 22:06 Antibiotics) sulfamethoxazole AdvReac Vomiting Verified 01/20/17 22:06 [From Bactrim] trimethoprim [From Bactrim] AdvReac Vomiting Verified 01/20/17 22:06 All Systems PM: A 10-system review of systems was performed and is negative for pertinent findings except as documented above in the HPI. Review of systems: ROS 14 point review of systems reviewed as best as possible given presentation. Pertinent positive or negative as per HPI or otherwise reviewed as negative - Constitutional Vitals: Temp Pulse Resp BP Pulse Ox 97.9 F 86 15 119/82 96 11/15/17 20:27 11/15/17 20:27 11/15/17 20:27 11/15/17 20:27 11/15/17 20:27 Exam: General - AAO x 3 Psych - Appropriate affect/speech. No agitation Eyes - SCOTT. Eye lids intact. No scleral icterus Heart - Sinus. RRR. S1 and S2 present. No added HS/murmurs appreciated. No elevated JVD appreciated. Lung - Adequate air entry b/l, No crackles/wheezes appreciated GI - Soft, non-tender. No hepatosplenomegaly/ascites. BS+ - left flank pain, reproducible on palpation and movement Skin - Intact. No rash/petechiae/ecchymosis. Warm extremities MSK - left flank pain, reproducible on palpation and movement Internal Med - H&P Results - Labs CBC & Chem 7: 11/15/17 15:38 11/15/17 15:38
[2017-11-15] MEDS ORDERED: NON-FORMULARY MEDICATION 1 EACH EACH (Insulin Glargine,Hum.Rec.Anlog [Basaglar Kwikpen U-1 SQ SCH (21:00)
[2017-11-15] MEDS: 0.9 % Sodium Chloride 1,000 ML IVC SCH (21:44)
[2017-11-15] MEDS: Lactobacillus 1 EACH CAP.SPRINK PO SCH (21:44)
[2017-11-15] MEDS: Gabapentin 400 MG CAPSULE PO SCH (21:45)
[2017-11-15] MEDS: Exenatide [Byetta] 5 MCG SQ SCH (21:50)
[2017-11-15] MEDS: Insulin LISPRO 300 UNITS/3 ML VIAL SQ SCH (21:54)
[2017-11-15] MEDS: Insulin DETEMIR 100 UNIT/ML X5UNITS SQ SCH (22:06)
[2017-11-16] MEDS: *HR* HYDROmorphone (PF) 1 MG/ML SYRINGE IVP PRN ×3 (04:18→23:13)
[2017-11-16] MEDS: *HR* Enoxaparin 40 MG/0.4 ML SYRINGE SQ SCH (05:26)
[2017-11-16 06:27] LABS: BUN/Creatinine Ratio 12 (6-26); Blood Urea Nitrogen 11 mg/dL (6-20); Calcium 8.6 mg/dL (8.6-10.3); Carbon Dioxide 26 mEq/L (23-29); Chloride 105 mEq/L (98-107); Glucose 262 mg/dL (70-105); Osmolality,Calculated 292 (280-300); Sodium 137 mEq/L (136-145); eGFR For African Americans > 60 (> 60); eGFR For Non-African Americans > 60 (> 60)
[2017-11-16 06:33] LABS: Basophils % 0.3 %; Eosinophils # 0.1 K/mcL (0.0-0.6); Eosinophils % 1.5 %; Immature Granulocytes % 0.5 % (0-4); Lymphocytes # 1.6 K/mcL (0.6-4.6); Mean Corpuscular HGB Conc 31.5 g/dL (31.6-35.5); Mean Corpuscular Hemoglobin 25.5 pg (28.0-33.3); Mean Platelet Volume 9.1 fL (9.4-12.4); Monocytes # 0.4 K/mcL (0.0-1.3); Neutrophils # 6.7 K/mcL (1.6-8.9); Platelet Count 227 K/mcL (140-400); Red Cell Distribution Width 13.7 % (11.5-14.5); Segmented Neutrophils % 75.7 %
[2017-11-16 07:31] LABS: Hemoglobin 10.7 g/dL (11.5-15.4)
[2017-11-16] MEDS: Insulin LISPRO 300 UNITS/3 ML VIAL SQ SCH ×4 (08:16→23:02)
[2017-11-16] MEDS: 0.9 % Sodium Chloride 1,000 ML IVC SCH (08:18)
[2017-11-16] MEDS: Gabapentin 400 MG CAPSULE PO SCH ×4 (08:19→23:01)
[2017-11-16] MEDS: cefTRIAXone 2,000 MG in Water for inj. (sterile) 20 ML 20 ML IVPB SCH (08:19)
[2017-11-16] MEDS: Exenatide [Byetta] 5 MCG SQ SCH (08:19)
[2017-11-16] MEDS: Cholecalciferol (D-3) 1,000 UNIT TABLET PO SCH (08:20)
[2017-11-16] MEDS: Lactobacillus 1 EACH CAP.SPRINK PO SCH ×2 (08:20→23:01)
[2017-11-16] MEDS: Aspirin 81 MG TAB.CHEW PO SCH (08:20)
--- NOTE | 2017-11-16 10:08 | Internal Med Progress Note ---
Date of Encounter: 11/16/17 Time of Encounter: 10:04 - Subjective Interval history: She is still having flank pain and nausea Assessment and Plan Pyelonephritis Continue Rocephin. Urine cx were not obtained in ER Send urine cx Continue IVF (NS at 100 ml/hr) Pain only controlled by ketamine and dilaudid given in the ED Wean of opiods and Ketamine Hypertension Continue home medications Anxiety Continue home medications Diabetes-II dependent on insulin: Complicated by infection Continue increased dose of Levemir plus SSI (Novolog) - Constitutional Vitals: Temp Pulse Resp BP Pulse Ox 98.0 F 75 16 129/85 94 11/16/17 06:49 11/16/17 06:49 11/16/17 06:49 11/16/17 06:49 11/16/17 06:49 General appearance: Present: mild distress, A&O X 3, morbidly obese, pleasant, answers questions appropriately - Head Head exam: Present: atraumatic, normocephalic - Eye Eye exam: Present: EOMI, PERRL, conjuntiva pink, sclera anicteric. Absent: scleral icterus Pupils: Present: PERRL - Neck Neck exam general surgery: Present: supple, trachea midline. Absent: lymphadenopathy - Respiratory Respiratory exam: Present: CTAB. Absent: accessory muscle use, rales, rhonchi, wheezes - Cardiovascular Cardiovascular exam: Present: RRR, +S1, +S2. Absent: diastolic murmur, gallop, rubs, systolic murmur - GI/Abdominal GI/Abdominal exam: Present: normal bowel sounds, soft, no peritoneal signs. Absent: distended, tenderness Additional comments: Bilateral flank pain with guarding - Extremities Exam Extremities exam: Present: warm, radial pulses palpable and symmetrical. Absent : calf tenderness, cyanotic, pedal edema - Neurological Exam Neurological exam: Present: CN II-XII intact, oriented X3, no focal deficits. Absent: pronater drift, facial droop, speech deficit - Skin Skin exam: Present: dry, intact Internal Medicine: Result - Labs CBC & Chem 7: 11/16/17 05:32 11/16/17 05:32 Labs: Short CBC 11/16/17 Range/Units 05:32 WBC 8.8 (4.3-11.1) K/mcL Hgb 10.7 L D (11.5-15.4) g/dL Hct 34.0 L (35.3-44.9) % Plt Count 227 (140-400) K/mcL Neutrophils # 6.7 (1.6-8.9) K/mcL [facility] 11/16/17 05:32 Sodium 137 Potassium 4.0 Chloride 105 Carbon Dioxide 26 BUN 11 Creatinine 0.93 Glucose 262 H Calcium 8.6 Consult Discharge Plan - Plan Referrals: Alfredo Cummings Jr, MD [Primary Care Provider] -
[2017-11-16] MEDS: Ketorolac 15 MG/ML VIAL IVP PRN (12:58)
[2017-11-16] MEDS: Insulin DETEMIR 100 UNIT/ML X5UNITS SQ SCH (23:14)
[2017-11-17] MEDS: Exenatide [Byetta] 5 MCG SQ SCH ×2 (00:15→08:18)
[2017-11-17] MEDS: Ketorolac 15 MG/ML VIAL IVP PRN ×3 (00:19→21:02)
[2017-11-17] MEDS: *HR* Enoxaparin 40 MG/0.4 ML SYRINGE SQ SCH (05:07)
[2017-11-17] MEDS: Insulin LISPRO 300 UNITS/3 ML VIAL SQ SCH ×4 (08:15→23:01)
[2017-11-17] MEDS: cefTRIAXone 2,000 MG in Water for inj. (sterile) 20 ML 20 ML IVPB SCH (08:15)
[2017-11-17] MEDS: Gabapentin 400 MG CAPSULE PO SCH ×4 (08:17→21:04)
[2017-11-17] MEDS: Lactobacillus 1 EACH CAP.SPRINK PO SCH ×2 (08:17→21:04)
[2017-11-17] MEDS: Aspirin 81 MG TAB.CHEW PO SCH (08:18)
[2017-11-17] MEDS: Cholecalciferol (D-3) 1,000 UNIT TABLET PO SCH (08:18)
[2017-11-17] MEDS: *HR* HYDROmorphone (PF) 1 MG/ML SYRINGE IVP PRN ×3 (11:47→22:56)
--- NOTE | 2017-11-17 12:50 | Internal Med Progress Note ---
Date of Encounter: 11/17/17 Time of Encounter: 12:50 - Subjective Interval history: She is still having flank pain and nausea Assessment and Plan Pyelonephritis Continue Rocephin. Urine cx were not obtained in ER Send urine cx Continue IVF (NS at 100 ml/hr) Pain only controlled by ketamine and dilaudid given in the ED Wean of opiods and Ketamine Hypertension Continue home medications Anxiety Continue home medications Diabetes-II dependent on insulin: Complicated by infection Continue increased dose of Levemir plus SSI (Novolog) Physical Exam: eral appearance: Present: mild distress, A&O X 3, morbidly obese, pleasant, answers questions appropriately - Head Head exam: Present: atraumatic, normocephalic - Eye Eye exam: Present: EOMI, PERRL, conjuntiva pink, sclera anicteric. Absent: scleral icterus Pupils: Present: PERRL - Neck Neck exam general surgery: Present: supple, trachea midline. Absent: lymphadenopathy - Respiratory Respiratory exam: Present: CTAB. Absent: accessory muscle use, rales, rhonchi, wheezes - Cardiovascular Cardiovascular exam: Present: RRR, +S1, +S2. Absent: diastolic murmur, gallop, rubs, systolic murmur - GI/Abdominal GI/Abdominal exam: Present: normal bowel sounds, soft, no peritoneal signs. Absent: distended, tenderness Additional comments: Bilateral flank pain with guarding - Extremities Exam Extremities exam: Present: warm, radial pulses palpable and symmetrical. Absent : calf tenderness, cyanotic, pedal edema - Neurological Exam Neurological exam: Present: CN II-XII intact, oriented X3, no focal deficits. Absent: pronater drift, facial droop, speech deficit - Skin Skin exam: Present: dry, intact Labs: - Constitutional Vitals: Temp Pulse Resp BP Pulse Ox 97.9 F 83 19 153/88 93 11/17/17 10:56 11/17/17 10:56 11/17/17 10:56 11/17/17 10:56 11/17/17 10:56 General appearance: Present: mild distress, A&O X 3, morbidly obese, pleasant, answers questions appropriately Internal Medicine: Result - Labs CBC & Chem 7: 11/16/17 05:32 11/16/17 05:32 Consult Discharge Plan - Plan Instructions: Urinary Tract Infection in Women (DC) Referrals: Alfredo Cummings Jr, MD [Primary Care Provider] -
[2017-11-17] MEDS: 0.9 % Sodium Chloride 1,000 ML IVC SCH (14:02)
[2017-11-17] MEDS: Insulin DETEMIR 100 UNIT/ML X5UNITS SQ SCH (22:57)
[2017-11-17] MEDS: ALPRAZolam 0.5 MG TABLET PO PRN (23:05)
[2017-11-18] MEDS: 0.9 % Sodium Chloride 1,000 ML IVC SCH ×2 (01:30→06:50)
[2017-11-18] MEDS: *HR* Enoxaparin 40 MG/0.4 ML SYRINGE SQ SCH (05:27)
[2017-11-18 07:51] LABS: Basophils % 0.3 %; Eosinophils # 0.2 K/mcL (0.0-0.6); Eosinophils % 2.6 %; Hematocrit 30.6 % (35.3-44.9); Immature Granulocytes % 0.4 % (0-4); Lymphocytes # 1.7 K/mcL (0.6-4.6); Lymphocytes % 22.8 %; Mean Corpuscular HGB Conc 32.7 g/dL (31.6-35.5); Mean Corpuscular Hemoglobin 25.7 pg (28.0-33.3); Mean Corpuscular Volume 78.7 fL (83.0-100.0); Mean Platelet Volume 8.7 fL (9.4-12.4); Monocytes # 0.3 K/mcL (0.0-1.3); Monocytes % 4.3 %; Neutrophils # 5.2 K/mcL (1.6-8.9); Platelet Count 205 K/mcL (140-400); Red Blood Count 3.89 M/mcL (3.82-4.97); Red Cell Distribution Width 13.4 % (11.5-14.5); Segmented Neutrophils % 69.6 %
[2017-11-18 08:34] LABS: BUN/Creatinine Ratio 13 (6-26); Blood Urea Nitrogen 11 mg/dL (6-20); Calcium 8.8 mg/dL (8.6-10.3); Carbon Dioxide 27 mEq/L (23-29); Chloride 105 mEq/L (98-107); Glucose 203 mg/dL (70-105); Osmolality,Calculated 291 (280-300); Potassium 3.9 mEq/L (3.5-5.1); Sodium 138 mEq/L (136-145); eGFR For African Americans > 60 (> 60); eGFR For Non-African Americans > 60 (> 60)
[2017-11-18] MEDS: Insulin LISPRO 300 UNITS/3 ML VIAL SQ SCH ×4 (08:47→20:53)
[2017-11-18] MEDS: cefTRIAXone 2,000 MG in Water for inj. (sterile) 20 ML 20 ML IVPB SCH (08:48)
[2017-11-18] MEDS: Cholecalciferol (D-3) 1,000 UNIT TABLET PO SCH (08:49)
[2017-11-18] MEDS: Gabapentin 400 MG CAPSULE PO SCH ×4 (08:49→20:33)
[2017-11-18] MEDS: Lactobacillus 1 EACH CAP.SPRINK PO SCH ×2 (08:49→20:25)
[2017-11-18] MEDS: Aspirin 81 MG TAB.CHEW PO SCH (08:49)
[2017-11-18] MEDS: *HR* HYDROmorphone (PF) 1 MG/ML SYRINGE IVP PRN ×3 (08:50→20:26)
[2017-11-18] MEDS: Insulin DETEMIR 100 UNIT/ML X5UNITS SQ SCH (20:33)
[2017-11-18] MEDS: traMADol 50 MG TABLET PO PRN (23:30)
--- NOTE | 2017-11-19 02:08 | Internal Med Progress Note ---
Date of Encounter: 11/18/17 Time of Encounter: 16:10 - Subjective Interval history: She is still having flank pain but nausea resolving Assessment and Plan Pyelonephritis Continue Rocephin. Urine cx were not obtained in ER Urine cx now positivfor K. pneumonia sensitive to Rocephin (also Levaquin) Continue IVF (NS at 100 ml/hr) Pain only controlled by ketamine and dilaudid given in the ED Ketamine D/C'd Trying to decrease Dilaudid Toradol added previously Ready to d/c to home Monday Hypertension Continue home medications Anxiety Continue home medications Diabetes-II dependent on insulin: Complicated by infection Continue increased dose of Levemir plus SSI (Novolog) Physical Exam: eral appearance: Present: mild distress, A&O X 3, morbidly obese, pleasant, answers questions appropriately - Head Head exam: Present: atraumatic, normocephalic - Eye Eye exam: Present: EOMI, PERRL, conjuntiva pink, sclera anicteric. Absent: scleral icterus Pupils: Present: PERRL - Neck Neck exam general surgery: Present: supple, trachea midline. Absent: lymphadenopathy - Respiratory Respiratory exam: Present: CTAB. Absent: accessory muscle use, rales, rhonchi, wheezes - Cardiovascular Cardiovascular exam: Present: RRR, +S1, +S2. Absent: diastolic murmur, gallop, rubs, systolic murmur - GI/Abdominal GI/Abdominal exam: Present: normal bowel sounds, soft, no peritoneal signs. Absent: distended, tenderness Additional comments: Bilateral flank pain with guarding - Extremities Exam Extremities exam: Present: warm, radial pulses palpable and symmetrical. Absent : calf tenderness, cyanotic, pedal edema - Neurological Exam Neurological exam: Present: CN II-XII intact, oriented X3, no focal deficits. Absent: pronater drift, facial droop, speech deficit - Skin Skin exam: Present: dry, intact Labs: - Constitutional Vitals: Temp Pulse Resp BP Pulse Ox 98.4 F 87 14 150/96 95 11/18/17 23:51 11/18/17 23:51 11/18/17 23:51 11/18/17 23:51 11/18/17 23:51 General appearance: Present: mild distress, A&O X 3, morbidly obese, pleasant, answers questions appropriately Internal Medicine: Result - Labs CBC & Chem 7: 11/18/17 07:30 11/18/17 07:30 Labs: Short CBC 11/18/17 Range/Units 07:30 WBC 7.5 (4.3-11.1) K/mcL Hgb 10.0 L (11.5-15.4) g/dL Hct 30.6 L (35.3-44.9) % Plt Count 205 (140-400) K/mcL Neutrophils # 5.2 (1.6-8.9) K/mcL BMP 11/18/17 07:30 Sodium 138 Potassium 3.9 Chloride 105 Carbon Dioxide 27 BUN 11 Creatinine 0.82 Glucose 203 H Calcium 8.8 Consult Discharge Plan - Plan Instructions: Urinary Tract Infection in Women (DC) Referrals: Alfredo Cummings Jr, MD [Primary Care Provider] -
[2017-11-19] MEDS: *HR* Enoxaparin 40 MG/0.4 ML SYRINGE SQ SCH (05:53)
[2017-11-19] MEDS: traMADol 50 MG TABLET PO PRN (06:58)
[2017-11-19] MEDS: *HR* Promethazine 25 MG/ML VIAL IVP PRN ×2 (06:58→19:04)
[2017-11-19 07:37] LABS: BUN/Creatinine Ratio 14 (6-26); Blood Urea Nitrogen 11 mg/dL (6-20); Calcium 9.2 mg/dL (8.6-10.3); Carbon Dioxide 30 mEq/L (23-29); Chloride 103 mEq/L (98-107); Glucose 136 mg/dL (70-105); Osmolality,Calculated 289 (280-300); Potassium 3.7 mEq/L (3.5-5.1); Sodium 139 mEq/L (136-145); eGFR For African Americans > 60 (> 60); eGFR For Non-African Americans > 60 (> 60)
[2017-11-19 07:49] LABS: Basophils % 0.3 %; Eosinophils # 0.2 K/mcL (0.0-0.6); Eosinophils % 2.1 %; Hematocrit 33.4 % (35.3-44.9); Immature Granulocytes % 0.5 % (0-4); Lymphocytes # 1.5 K/mcL (0.6-4.6); Lymphocytes % 19.2 %; Mean Corpuscular HGB Conc 32.9 g/dL (31.6-35.5); Mean Corpuscular Hemoglobin 25.8 pg (28.0-33.3); Mean Corpuscular Volume 78.4 fL (83.0-100.0); Mean Platelet Volume 9.1 fL (9.4-12.4); Monocytes # 0.3 K/mcL (0.0-1.3); Monocytes % 4.3 %; Neutrophils # 5.6 K/mcL (1.6-8.9); Platelet Count 227 K/mcL (140-400); Red Blood Count 4.26 M/mcL (3.82-4.97); Red Cell Distribution Width 13.5 % (11.5-14.5); Segmented Neutrophils % 73.6 %
[2017-11-19] MEDS: cefTRIAXone 2,000 MG in Water for inj. (sterile) 20 ML 20 ML IVPB SCH (09:32)
[2017-11-19] MEDS: Aspirin 81 MG TAB.CHEW PO SCH (09:33)
[2017-11-19] MEDS: Cholecalciferol (D-3) 1,000 UNIT TABLET PO SCH (09:33)
[2017-11-19] MEDS: Lactobacillus 1 EACH CAP.SPRINK PO SCH ×2 (09:33→21:07)
[2017-11-19] MEDS: Gabapentin 400 MG CAPSULE PO SCH ×4 (09:33→21:08)
[2017-11-19] MEDS: Insulin LISPRO 300 UNITS/3 ML VIAL SQ SCH ×4 (09:33→21:08)
[2017-11-19] MEDS: *HR* HYDROmorphone (PF) 1 MG/ML SYRINGE IVP PRN (09:44)
[2017-11-19] MEDS ORDERED: Acetaminophen 325 MG TABLET PO PRN (12:01)
--- NOTE | 2017-11-19 15:47 | Internal Med Progress Note ---
Date of Encounter: 11/19/17 Time of Encounter: 15:46 - Subjective Interval history: Fank pain and nausea resolved but c/o a debilitating migraine VALENTINO today Assessment and Plan Pyelonephritis Change Rocephin to for d/c tomorow. Urine cx now positivfor K. 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 Absent: scleral icterus Pupils: Present: PERRL - Neck Neck exam general surgery: Present: supple, trachea midline. Absent: lymphadenopathy - Respiratory Respiratory exam: Present: CTAB. Absent: accessory muscle use, rales, rhonchi, wheezes - Cardiovascular Cardiovascular exam: Present: RRR, +S1, +S2. Absent: diastolic murmur, gallop, rubs, systolic murmur - GI/Abdominal GI/Abdominal exam: Present: normal bowel sounds, soft, no peritoneal signs. Absent: distended, tenderness Additional comments: Bilateral flank pain with guarding - Extremities Exam Extremities exam: Present: warm, radial pulses palpable and symmetrical. Absent : calf tenderness, cyanotic, pedal edema - Neurological Exam Neurological exam: Present: CN II-XII intact, oriented X3, no focal deficits. Absent: pronater drift, facial droop, speech deficit - Skin Skin exam: Present: dry, intact Labs: - Constitutional Vitals: Temp Pulse Resp BP Pulse Ox 98.5 F 92 15 134/86 91 11/19/17 14:22 11/19/17 14:22 11/19/17 14:22 11/19/17 14:22 11/19/17 14:22 General appearance: Present: mild distress, A&O X 3, morbidly obese, pleasant, answers questions appropriately Internal Medicine: Result - Labs CBC & Chem 7: 11/19/17 07:04 11/19/17 07:04 Labs: Short CBC 11/19/17 Range/Units 07:04 WBC 7.7 (4.3-11.1) K/mcL Hgb 11.0 L (11.5-15.4) g/dL Hct 33.4 L (35.3-44.9) % Plt Count 227 (140-400) K/mcL Neutrophils # 5.6 (1.6-8.9) K/mcL BMP 11/19/17 07:04 Sodium 139 Potassium 3.7 Chloride 103 Carbon Dioxide 30 H BUN 11 Creatinine 0.77 Glucose 136 H Calcium 9.2 Consult Discharge Plan - Plan Instructions: Urinary Tract Infection in Women (DC) Referrals: Alfredo Cummings Jr, MD [Primary Care Provider] -
[2017-11-19] MEDS: Acetaminophen/Butalbital/CaffeineTABLET PO PRN ×2 (16:56→23:20)
[2017-11-19] MEDS: Insulin DETEMIR 100 UNIT/ML X5UNITS SQ SCH (21:07)
[2017-11-20] MEDS: *HR* Enoxaparin 40 MG/0.4 ML SYRINGE SQ SCH (05:19)
[2017-11-20 06:57] LABS: Basophils % 0.2 %; Eosinophils # 0.2 K/mcL (0.0-0.6); Eosinophils % 2.1 %; Hematocrit 31.8 % (35.3-44.9); Hemoglobin 10.4 g/dL (11.5-15.4); Immature Granulocytes % 0.7 % (0-4); Immature Platelets 1.8 % (1.1-6.1); Lymphocytes # 1.7 K/mcL (0.6-4.6); Lymphocytes % 19.7 %; Mean Corpuscular HGB Conc 32.7 g/dL (31.6-35.5); Mean Corpuscular Hemoglobin 25.7 pg (28.0-33.3); Mean Corpuscular Volume 78.7 fL (83.0-100.0); Mean Platelet Volume 8.8 fL (9.4-12.4); Monocytes # 0.4 K/mcL (0.0-1.3); Monocytes % 4.5 %; Neutrophils # 6.4 K/mcL (1.6-8.9); Platelet Count 233 K/mcL (140-400); Red Blood Count 4.04 M/mcL (3.82-4.97); Red Cell Distribution Width 13.4 % (11.5-14.5); Segmented Neutrophils % 72.8 %
[2017-11-20 07:08] LABS: Calcium 9.1 mg/dL (8.6-10.3); Carbon Dioxide 28 mEq/L (23-29); Chloride 102 mEq/L (98-107); Potassium 3.8 mEq/L (3.5-5.1); Sodium 137 mEq/L (136-145)
[2017-11-20 07:19] LABS: Blood Urea Nitrogen 12 mg/dL (6-20); Glucose 228 mg/dL (70-105); Osmolality,Calculated 291 (280-300)
[2017-11-20] MEDS: *HR* HYDROmorphone (PF) 1 MG/ML SYRINGE IVP PRN (08:28)
[2017-11-20] MEDS: *HR* Promethazine 25 MG/ML VIAL IVP PRN (08:29)
[2017-11-20] MEDS: Insulin LISPRO 300 UNITS/3 ML VIAL SQ SCH (08:29)
[2017-11-20] MEDS ORDERED: levoFLOXacin 750 MG TABLET PO SCH (09:00)
[2017-11-20] MEDS: Cholecalciferol (D-3) 1,000 UNIT TABLET PO SCH (09:19)
[2017-11-20] MEDS: Aspirin 81 MG TAB.CHEW PO SCH (09:19)
[2017-11-20] MEDS: Lactobacillus 1 EACH CAP.SPRINK PO SCH (09:19)
[2017-11-20] MEDS: Gabapentin 400 MG CAPSULE PO SCH (09:19)
[2017-11-20] MEDS: ALPRAZolam 0.5 MG TABLET PO PRN (09:24)
[2017-11-20] MEDS: Acetaminophen/Butalbital/CaffeineTABLET PO PRN (09:26)
[2017-11-20 09:32] LABS: BUN/Creatinine Ratio 14 (6-26); eGFR For African Americans > 60 (> 60); eGFR For Non-African Americans > 60 (> 60)
[2017-11-20 10:33] VITALS: BP 145/85
[2017-11-20] MEDS ORDERED: *HR* OxyCODONE Immed Rel 5 MG TABLET PO PRN (10:49)
[2017-11-20] MEDS ORDERED: traMADol 50 MG TABLET PO PRN (11:07)
[2017-11-20] MEDS ORDERED: Acetaminophen 325 MG TABLET PO PRN (11:08)
--- NOTE | 2017-11-20 11:17 | Internal Med Progress Note ---
Date of Encounter: 11/20/17 Time of Encounter: 11:17 - Subjective Interval history: Fank pain and nausea resolved but c/o a debilitating migraine VALENTINO today Assessment and Plan Pyelonephritis Change Rocephin to for d/c tomorow. Urine cx now positivfor K. 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 Absent: scleral icterus Pupils: Present: PERRL - Neck Neck exam general surgery: Present: supple, trachea midline. Absent: lymphadenopathy - Respiratory Respiratory exam: Present: CTAB. Absent: accessory muscle use, rales, rhonchi, wheezes - Cardiovascular Cardiovascular exam: Present: RRR, +S1, +S2. Absent: diastolic murmur, gallop, rubs, systolic murmur - GI/Abdominal GI/Abdominal exam: Present: normal bowel sounds, soft, no peritoneal signs. Absent: distended, tenderness Additional comments: Bilateral flank pain with guarding - Extremities Exam Extremities exam: Present: warm, radial pulses palpable and symmetrical. Absent : calf tenderness, cyanotic, pedal edema - Neurological Exam Neurological exam: Present: CN II-XII intact, oriented X3, no focal deficits. Absent: pronater drift, facial droop, speech deficit - Skin Skin exam: Present: dry, intact Labs: - Constitutional Vitals: Temp Pulse Resp BP Pulse Ox 98.2 F 85 20 145/85 93 11/20/17 10:31 11/20/17 10:31 11/20/17 10:31 11/20/17 10:31 11/20/17 10:31 General appearance: Present: mild distress, A&O X 3, morbidly obese, pleasant, answers questions appropriately Internal Medicine: Result - Labs CBC & Chem 7: 11/20/17 06:48 11/20/17 06:48 Labs: Short CBC 11/20/17 Range/Units 06:48 WBC 8.7 (4.3-11.1) K/mcL Hgb 10.4 L (11.5-15.4) g/dL Hct 31.8 L (35.3-44.9) % Plt Count 233 (140-400) K/mcL Neutrophils # 6.4 (1.6-8.9) K/mcL BMP 11/20/17 06:48 Sodium 137 Potassium 3.8 Chloride 102 Carbon Dioxide 28 BUN 12 Creatinine 0.84 Glucose 228 H Calcium 9.1 Consult Discharge Plan - Plan Instructions: Urinary Tract Infection in Women (DC) Referrals: Alfredo Cummings Jr, MD [Primary Care Provider] -
--- NOTE | 2017-11-20 11:25 | Discharge Summary ---
Date of Encounter: 11/24/17 Time of Encounter: 11:18 - Discharge Medications Prescriptions: levoFLOXacin [Levaquin] 750 mg PO DAILY 5 Days #5 tablet Home Medications: Aspirin 81 mg PO DAILY 05/23/15 [History] Citalopram [CeleXA] 40 mg PO BID 05/23/15 [History] Dicyclomine HCl [Bentyl] 20 mg PO TID PRN 05/23/15 [History] Gabapentin [Neurontin] 800 mg PO QID 05/23/15 [History] Pramipexole Di-HCl [Mirapex] 0.25 mg PO TID 05/23/15 [History] Tramadol HCl [Ultram] 50 mg PO Q6HR PRN 05/23/15 [History] Zolpidem Tartrate [Ambien] 10 mg PO HS 05/23/15 [History] Ondansetron HCl [Zofran] 4 mg PO Q8H PRN 01/21/17 [History] Simvastatin [Zocor] 40 mg PO HS 30 Days tablet 01/22/17 [Rx] Glimepiride [Amaryl] 2 mg PO 0800 07/11/17 [History] Losartan Potassium [Cozaar] 100 mg PO DAILY 07/11/17 [History] Pantoprazole Sodium [Protonix] 40 mg PO BID 07/11/17 [History] Promethazine [Phenergan] 12.5 - 25 mg PO BID PRN 07/11/17 [History] Sucralfate [Carafate] 1 gm PO BID 07/11/17 [History] Lactobacillus [Culturelle] 1 each PO BID #20 cap.sprink 07/13/17 [Rx] ALPRAZolam [Xanax 0.5 MG Tablet] 0.5 mg PO TID PRN 11/15/17 [History] Cholecalciferol (Vitamin D3) [Vitamin D3] 5,000 unit PO DAILY 11/15/17 [History] Exenatide [Byetta] 5 mcg SQ BID 11/15/17 [History] Insulin Glargine,Hum.rec.anlog [Basaglar Kwikpen U-100] 70 unit SQ HS 11/15/17 [ History] Insulin LISPRO [Humalog Kwikpen U-100] 0 unit SQ TIDWM 11/15/17 [History] levoFLOXacin [Levaquin] 750 mg PO DAILY 5 Days #5 tablet 11/20/17 [Rx] Allergies/Adverse Reactions: 3 Allergy/AdvReac Type Severity Reaction Status Date / Time latex AdvReac Cramping Verified 01/20/17 22:06 of the Muscles metformin AdvReac Diarrhea Verified 01/20/17 22:06 Sulfa (Sulfonamide AdvReac Vomiting Verified 01/20/17 22:06 Antibiotics) sulfamethoxazole AdvReac Vomiting Verified 01/20/17 22:06 [From Bactrim] trimethoprim [From Bactrim] AdvReac Vomiting Verified 01/20/17 22:06 Date of admission: 11/15/17 18:30 Primary care physician: Alfredo Cummings Jr, MD Discharging clinician: Devin Murray - Patient Status Disposition: Home, Self-Care Condition: Fair - Discharge Instructions Instructions: Urinary Tract Infection in Women (DC), Acute Pyelonephritis (DC) Follow Up With: Alfredo Cummings Jr, MD [Primary Care Provider] - 11/27/17 12:00 pm Hospital course: Interval history: Fank pain and nausea resolved but c/o a debilitating migraine VALENTINO today Assessment and Plan Pyelonephritis Change Rocephin to for d/c tomorow. Urine cx now positivfor K. 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 Absent: scleral icterus Pupils: Present: PERRL - Neck Neck exam general surgery: Present: supple, trachea midline. Absent: lymphadenopathy - Respiratory Respiratory exam: Present: CTAB. Absent: accessory muscle use, rales, rhonchi, wheezes - Cardiovascular Cardiovascular exam: Present: RRR, +S1, +S2. Absent: diastolic murmur, gallop, rubs, systolic murmur - GI/Abdominal GI/Abdominal exam: Present: normal bowel sounds, soft, no peritoneal signs. Absent: distended, tenderness Additional comments: Bilateral flank pain with guarding - Extremities Exam Extremities exam: Present: warm, radial pulses palpable and symmetrical. Absent : calf tenderness, cyanotic, pedal edema - Neurological Exam Neurological exam: Present: CN II-XII intact, oriented X3, no focal deficits. Absent: pronater drift, facial droop, speech deficit - Skin Skin exam: Present: dry, intact Hospital course: The patient is 52 year old woman admitted with pyelonephritis and bilateral flank pain. Her urine cultures grew out Klebseilla pneumoniae sensitive to Rocephin and Levaquin. After severl days on Rocephin she became afebrile and her leukocytosis improved. Her pain was controlled with Dilaudid and Toradol. She was transitioned to Levaquin and will need 5 more days of PO Levaquin after dischange. Time spent discussing smoking cessation with patient: more than 10 minutes - Time Spent with Patient Total time spent providing and/or coordinating discharge services: Greater than 30 minutes - Constitutional Vitals: Temp Pulse Resp BP Pulse Ox 98.2 F 85 20 145/85 93 11/20/17 10:31 11/20/17 10:31 11/20/17 10:31 11/20/17 10:31 11/20/17 10:31 General appearance: Present: mild distress, A&O X 3, morbidly obese, pleasant, answers questions appropriately
== END 2017-11-20 13:10 | disposition home or self-care (01) ==
LOC: EMEROO 15:09 → 3ANU 15:09
PROVIDERS: ADMIT Internal Medicine; ATTEND Internal Medicine

== ENCOUNTER 2019-02-18 09:53 | Observation (INO) ==
--- NOTE | 2019-02-18 10:10 | Emergency Department Note ---
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 Diabetes mellitus complication status: without complication Qualified Code(s): E11.9 - Type 2 diabetes mellitus without complications Transient cerebral ischemia Qualifiers: Transient cerebral ischemia type: unspecified Qualified Code(s): G45.9 - Transient cerebral ischemic attack, unspecified Disposition: Admitted As Inpatient Condition: Fair Referrals: Alfredo Cummings Jr, MD [Primary Care Provider] - Forms: ED Satisfaction Letter General Adult HPI - General Chief complaint: ED Neuro Symptoms/Deficit Stated complaint: weakness, high blood sugar Time Seen by Provider: 02/18/19 09:59 Source: patient Limitations: other Nursing Notes Reviewed: Yes Vital Signs Reviewed: Yes - History of Present Illness HPI Narrative: Chief complaint elevated blood sugar and possible stroke. History: This is a 53-year-old female who comes in by squad. Squad was called due to elevated blood sugars and also difficulty with speaking and choking. Patient has which she says is about shoulder level rotator cuff injury on the right head steroid shot shoulder week ago and since then has been having difficulty to keep her blood sugars down. History of DKA in the past. Sugars run in the 200s today. She is about 4 AM she woke up choking and she woke up again later with choking and knows that her speech pattern was different. Were any is for him as her last known well. She does speak but has definite pauses in her speech she does have right-sided weakness and that is her dominant side. NIH initial is going to be a 2 or 3. She is called as a stroke alert and we will go over to CT and then we will reexamine her when she gets back. Past mental history reviewed, nurse's notes reviewed, medical notes reviewed allergies reviewed and med list reviewed. Pain Scale: 0 - Related Data Home Medications Medication Instructions Recorded Confirmed Citalopram [CeleXA] 40 mg PO BID 05/23/15 12/26/18 Gabapentin [Neurontin] 800 mg PO QID 05/23/15 12/26/18 Zolpidem Tartrate [Ambien] 10 mg PO HS 05/23/15 12/26/18 Sucralfate [Carafate] 1 gm PO BID 07/11/17 12/26/18 ALPRAZolam [Xanax 0.5 MG Tablet] 0.5 mg PO TID PRN 11/15/17 12/26/18 Insulin LISPRO [Humalog Kwikpen 0 unit SQ TIDWM 11/15/17 12/26/18 U-100] Aspirin [Adult Aspirin] 81 mg DAILY 12/26/18 12/26/18 BuPROPion SR (12 HR) [Wellbutrin 150 mg DAILY 12/26/18 12/26/18 SR] Carvedilol [Coreg] 6.25 mg DAILY 12/26/18 12/26/18 Citalopram Hydrobromide 40 mg DAILY 12/26/18 12/26/18 [Citalopram HBr] Ferrous Sulfate [Iron] 325 mg DAILY 12/26/18 12/26/18 Zolpidem [Ambien] 10 mg DAILY 12/26/18 12/26/18 Previous Rx's Medication Instructions Recorded Ondansetron ODT [Zofran ODT] 4 mg SL Q8HR PRN #12 tab.rapdis 10/29/18 Allergies Allergy/AdvReac Type Severity Reaction Status Date / Time latex AdvReac Cramping Verified 10/12/18 14:37 of the Muscles metformin AdvReac Diarrhea Verified 10/12/18 14:37 Sulfa (Sulfonamide AdvReac Vomiting Verified 10/12/18 14:37 Antibiotics) sulfamethoxazole AdvReac Vomiting Verified 10/12/18 14:37 [From Bactrim] trimethoprim [From Bactrim] AdvReac Vomiting Verified 10/12/18 14:37 Review of Systems: Positive for difficulty with speech. Right-sided weakness. And elevated blood sugars. All systems ED: reviewed and negative except as stated. 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 She weighs 113 kg. GCS is 14, she is alert person place and time. Gen. alert, cooperative in mild distress. HEENT is normocephalic PERRL makes members are dry neck is supple no nodes no carotid bruits Lungs are clear to auscultation bilaterally with good aeration Cardia vascular is regular rate and rhythm without rubs or JVD Abdomen is soft nonsurgical good bowel sounds no masses Dermatologic skin is warm and dry no signs of acute rash petechia or jaundice Neurologic GCS is 14 she is alert person [address] and time. She is able to speak but has definite positive between her words like she is having difficulty finding her words. She has weakness on the left side which is more sensation, right side is difficult to assess due to the fact that she has pain in her right shoulder but she has definitely decreased motion on the right side. Which she thinks is improving her leg but not her upper extremity. Difficult to assess cerebellar exam for her. Right now her NIH is between a 2 and 3. - General Limitations: other General appearance: alert, in no apparent distress Course Vital Signs Temperature 99.1 F 02/18/19 09:57 Pulse Rate 94 02/18/19 09:57 Respiratory Rate 18 02/18/19 09:57 Blood Pressure 123/90 02/18/19 09:57 O2 Sat by Pulse Oximetry 95 02/18/19 09:57 Temperature 99.1 F 02/18/19 09:57 Pulse Rate 85 02/18/19 11:14 Respiratory Rate 18 02/18/19 11:14 Blood Pressure 151/89 02/18/19 11:14 O2 Sat by Pulse Oximetry 96 02/18/19 11:14 Oxygen Delivery Oxygen Delivery Room Air Medical Decision Making - [facility] Narrative Medical decision making narrative: She is at least 6 hours out of the start of her symptoms she is out of the window for TPA. However per [facility]'s protocol she still qualifies a stroke alert. She is going she is going over for stat head CT and then reassessment and then we will consult the tele-stroke service to [facility]. [address] nothing acute on CT of the head per my read and per read by radiology. Head CT 02/18/19 10:00 IMPRESSION: No acute intracranial abnormality. The results examination were discussed with Dr. Lee on 02/18/2019 at 4:23 a.m. D/ / Rian Garcia MD / Rian Garcia MD Interpreting Provider: Rian Garcia MD 1035 hrs.: Tele-stroke service has reviewed the patient and CT and agrees this is not consistent with an acute stroke. Patient is moving both lower extremities and upper extremities but slowly she still has the broken speech pattern. Recommend continue our workup here the plan will be to admit her at this point here at the hospital. And also speak with neurology. Patient's in agreement with this plan. Negative her something for headache and also will reevaluate her blood sugar. 1020 hrs.: Patient in EKG performed which showed a sinus rhythm, rate is 88, QRS is 101, QTC is 469, low voltage in the precordial leads, a lot of artifact but nothing that appears to be acute ischemia, compare this with an EKG she had done in October which shows no changes. 1230 hrs.: Patient's labs are back her urine is negative for an ago and bring her into the hospital for further management disposition. Also touch base with neurology. She is in agreement with plan. Impression is acute mental status change, we will feel this is stroke at this time says may be a TIA or another etiology. Also elevated blood sugar with history of diabetes. No DKA. - Lab Data Result diagrams: 02/18/19 10:05 02/18/19 10:05 Lab Results 02/18/19 02/18/19 02/18/19 Range/Units 10:05 10:05 10:05 WBC 12.9 H (4.3-11.1) K/mcL RBC 4.90 (3.82-4.97) M/mcL Hgb 13.2 (11.5-15.4) g/dL Hct 39.9 (35.3-44.9) % MCV 81.4 L (83.0-100.0) fL MCH 26.9 L (28.0-33.3) pg MCHC 33.1 (31.6-35.5) g/dL RDW 13.6 (11.5-14.5) % Plt Count 242 (140-400) K/mcL MPV 8.4 L (9.4-12.4) fL PT 12.1 (9.4-12.1) Seconds INR 1.1 APTT 33.9 (26.0-36.0) Seconds Sodium 136 (136-145) mEq/L Potassium 4.4 (3.5-5.1) mEq/L Chloride 98 (98-107) mEq/L Carbon Dioxide 28 (23-29) mEq/L BUN 16 (6-20) mg/dL Creatinine 0.90 (0.60-1.20) mg/dL Est GFR ( Amer) > 60 (> 60) Est GFR (Non-Af Amer) > 60 (> 60) BUN/Creatinine Ratio 18 (6-26) Glucose 303 H (70-105) mg/dL Calculated Osmolality 295 (280-300) Calcium 9.9 (8.6-10.3) mg/dL Urine Color (Yellow) Urine Clarity (Clear) Urine pH (5.0-8.0) pH Units Ur Specific [place] (1.010-1.025) Urine Protein (Neg-Trace) mg/dL Urine Glucose (UA) (Normal) mg/dL Urine Ketones (Negative) mg/dL Urine Blood (Negative) Urine Nitrite (Negative) Urine Bilirubin (Negative) Urine Urobilinogen (Normal) mg/dL Ur Leukocyte Esterase (Negative) Ur Culture Indicated? (NO) 02/18/19 Range/Units 10:55 WBC (4.3-11.1) K/mcL RBC (3.82-4.97) M/mcL Hgb (11.5-15.4) g/dL Hct (35.3-44.9) % MCV (83.0-100.0) fL MCH (28.0-33.3) pg MCHC (31.6-35.5) g/dL RDW (11.5-14.5) % Plt Count (140-400) K/mcL MPV (9.4-12.4) fL PT (9.4-12.1) Seconds INR APTT (26.0-36.0) Seconds Sodium (136-145) mEq/L Potassium (3.5-5.1) mEq/L Chloride (98-107) mEq/L Carbon Dioxide (23-29) mEq/L BUN (6-20) mg/dL Creatinine (0.60-1.20) mg/dL Est GFR ( Amer) (> 60) Est GFR (Non-Af Amer) (> 60) BUN/Creatinine Ratio (6-26) Glucose (70-105) mg/dL Calculated Osmolality (280-300) Calcium (8.6-10.3) mg/dL Urine Color Yellow (Yellow) Urine Clarity Clear (Clear) Urine pH 6.5 (5.0-8.0) pH Units Ur Specific [place] 1.010 (1.010-1.025) Urine Protein Negative (Neg-Trace) mg/dL Urine Glucose (UA) 100 H (Normal) mg/dL Urine Ketones Negative (Negative) mg/dL Urine Blood Negative (Negative) Urine Nitrite Negative (Negative) Urine Bilirubin Negative (Negative) Urine Urobilinogen Normal (Normal) mg/dL Ur Leukocyte Esterase Negative (Negative) Ur Culture Indicated? NO (NO) Critical Care Time Critical Care Time: Yes Total Critical Care Time: 45 Attestation: Excluding any separately billable procedures.
[2019-02-18 10:16] LABS: Hematocrit 39.9 % (35.3-44.9); Hemoglobin 13.2 g/dL (11.5-15.4); Mean Corpuscular HGB Conc 33.1 g/dL (31.6-35.5); Mean Corpuscular Hemoglobin 26.9 pg (28.0-33.3); Mean Corpuscular Volume 81.4 fL (83.0-100.0); Mean Platelet Volume 8.4 fL (9.4-12.4); Platelet Count 242 K/mcL (140-400); Red Cell Distribution Width 13.6 % (11.5-14.5)
[2019-02-18 10:21] LABS: INR 1.1; Prothrombin Time 12.1 Seconds (9.4-12.1)
[2019-02-18 10:24] LABS: Activated Partial Thrombo Time 33.9 Seconds (26.0-36.0)
[2019-02-18 10:33] LABS: BUN/Creatinine Ratio 18 (6-26); Blood Urea Nitrogen 16 mg/dL (6-20); Calcium 9.9 mg/dL (8.6-10.3); Carbon Dioxide 28 mEq/L (23-29); Chloride 98 mEq/L (98-107); Glucose 303 mg/dL (70-105); Osmolality,Calculated 295 (280-300); Potassium 4.4 mEq/L (3.5-5.1); Sodium 136 mEq/L (136-145); eGFR For Non-African Americans > 60 (> 60)
[2019-02-18] MEDS ORDERED: Ketorolac 15 MG/ML VIAL IVP ONE (10:36)
[2019-02-18] MEDS ORDERED: Insulin Regular, Human 100 UNIT/ML SQ ONE (10:37)
[2019-02-18 11:02] LABS: Bilirubin,Urine Negative (Negative); Blood,Urine Negative (Negative); Clarity,Urine Clear (Clear); Color,Urine Yellow (Yellow); Glucose,Urine (UA) 100 mg/dL (Normal); Ketones,Urine Negative (Negative); Leukocyte Esterase,Urine Negative (Negative); Nitrite,Urine Negative (Negative); PH,Urine 6.5 pH Units (5.0-8.0); Protein,Urine Negative (Neg-Trace); Urobilinogen,Urine Normal (Normal)
[2019-02-18] MEDS: 0.9 % Sodium Chloride 1,000 ML IVC SCH ×3 (11:10→23:12)
[2019-02-18] MEDS ORDERED: Metoclopramide 10 MG/2 ML VIAL IVP ONE (12:42)
--- NOTE | 2019-02-18 15:14 | Internal Med History&Physical ---
<John Arvizu - Last Filed: 02/18/19 14:38> Date of Encounter: 02/18/19 Time of Encounter: 14:38 Internal Medicine - H&P: HPI Chief complaint: slurred speech and weakness Admitted From: Emergency Dept Plans for Post Hospital Care: Home History of present illness: Ms. Prakash is a 53 year old female with uncontrolled diabetes type 2 on home insulin, hypertension, dyslipidemia, elevated BMI, presents to ED today with concerns of slurred speech and weakness. She reports that she was part of an intervention yesterday and became very emotional. She developed a severe headache that progressively got worse. At 4:30am today, patient woke up and checked her BS, which was 274, and administered 10units of insulin. She continued to have choking episodes with nausea, headache, weakness and rechecked her BG again at 6:30a, which continued to be elevated. Her headache and weakness became very severe, at which point she called her niece, who called the squad. Does admit to LOC for unknown period of time. Denies any recent illness, f/c/n/v, abdominal pain, diarrhea, dysuria. Does admit to numbness and tingling of extremities and increasing thirst. Of note, patient underwent shoulder surgery on December 26, 2018 for rotator cuff tear. She then had frozen shoulder and received steroid injection 3 days ago. Reports that her sugar levels have been in the 400s since then and she has been trying to bring it down with insulin, although she reports that she did not increase her dose. Reports that she is compliant with her insulin. She was at ED for hyperglycemia as recently as October 2018. At ED, CT head without any abnormalities. Blood work significant for WBC 12.9, glucose 303. UA unremarkable. Patient's symptoms improved with 1L NaCl. She is progressing back to baseline. Past Med Surg Social Fam HX - Past Medical History Medical history: diabetes, hyperlipidemia, hypertension Additional medical history: fatty liver, stage 3 CKD, sickle cell trait Psychiatric history: anxiety, depression - Past Surgical History Surgical History: appendectomy, cholecystectomy, hysterectomy, SONDRA/BSO, other Additional surgical history: pelvic reconstruction - Social History Smoking Status: Never smoker Smokeless Tobacco Status: No Alcohol use: none Drug use: none - Family History Brother Hx Family Cardiac Disorders: Yes Sister Living Status: Mother Living Status: Hx Family Cardiac Disorders: Yes Hx Family Cancer: No (pancreatic, colon,) Hx Family Endocrine Disorder: Yes (diabetes) Hx Family HEENT Disorders: Yes Father Living Status: Hx Family Cardiac Disorders: Yes (MYOCARDIAL INFARCTION.) Hx Family HEENT Disorders: Yes Internal Medicine - H&P: Meds Citalopram [CeleXA] 40 mg PO BID 05/23/15 [History] Gabapentin [Neurontin] 800 mg PO QID 05/23/15 [History] Zolpidem Tartrate [Ambien] 10 mg PO HS 05/23/15 [History] Sucralfate [Carafate] 1 gm PO BID 07/11/17 [History] ALPRAZolam [Xanax 0.5 MG Tablet] 0.5 mg PO TID PRN 11/15/17 [History] Insulin LISPRO [Humalog Kwikpen U-100] 0 unit SQ TIDWM 11/15/17 [History] Ondansetron ODT [Zofran ODT] 4 mg SL Q8HR PRN #12 tab.rapdis 10/29/18 [Rx] Aspirin [Adult Aspirin] 81 mg DAILY 12/26/18 [History] BuPROPion SR (12 HR) [Wellbutrin SR] 150 mg DAILY 12/26/18 [History] Carvedilol [Coreg] 6.25 mg DAILY 12/26/18 [History] Citalopram Hydrobromide [Citalopram HBr] 40 mg DAILY 12/26/18 [History] Ferrous Sulfate [Iron] 325 mg DAILY 12/26/18 [History] Zolpidem [Ambien] 10 mg DAILY 12/26/18 [History] Allergy/AdvReac Type Severity Reaction Status Date / Time latex AdvReac Cramping Verified 10/12/18 14:37 of the Muscles metformin AdvReac Diarrhea Verified 10/12/18 14:37 Sulfa (Sulfonamide AdvReac Vomiting Verified 10/12/18 14:37 Antibiotics) sulfamethoxazole AdvReac Vomiting Verified 10/12/18 14:37 [From Bactrim] trimethoprim [From Bactrim] AdvReac Vomiting Verified 10/12/18 14:37 All Systems PM: A 10-system review of systems was performed and is negative for pertinent findings except as documented above in the HPI. - Constitutional Constitutional: weakness, no anorexia, no fever(s) Additional comments: Admits to diffuse headache without aura. - EENT Eyes: no blurry vision, no change in vision, no discharge, no pain, no photophobia Ears: no ear discharge, no ear pain, no tinnitus Nose, mouth and throat: no dysphagia, no nasal discharge, no neck pain, no sore throat - Cardiovascular Cardiovascular ROS IM: palpitations, no chest pain, no diaphoresis, no dyspnea, no lightheadedness, no syncope - Respiratory Respiratory: no cough, no dyspnea, no wheezing, no excessive phlegm production - Gastrointestinal Gastrointestinal: nausea, no abdominal pain, no diarrhea, no hematemesis, no hematochezia, no melena, no vomiting - Genitourinary Genitourinary: no change in urinary stream, no dysuria, no flank pain, no hematuria - Integumentary Integumentary IM: no rash, no unusual bruising - Neurological Neurological ROS: focal weakness, numbness, tingling, weakness, no confusion, no convulsions, no memory loss, no tremor(s) - Hematologic/Lymphatic Hematologic/Lymphatic: no easy bruising - Constitutional Vitals: Temp Pulse Resp BP Pulse Ox 99.1 F 85 16 152/77 95 02/18/19 09:57 02/18/19 12:42 02/18/19 14:29 02/18/19 14:29 02/18/19 12:42 General appearance: Present: A&O X 3 Exam: as below - Head Head exam: Present: atraumatic, normocephalic - Eye Eye exam: Present: PERRL, conjuntiva pink, sclera anicteric Pupils: Present: PERRL - Neck Neck exam general surgery: Present: supple, trachea midline. Absent: lymphadenopathy - Respiratory Respiratory exam: Present: CTAB. Absent: accessory muscle use, rales, rhonchi, wheezes - Cardiovascular Cardiovascular exam: Present: RRR, +S1, +S2. Absent: diastolic murmur, gallop, rubs, systolic murmur - GI/Abdominal GI/Abdominal exam: Present: normal bowel sounds, soft, no peritoneal signs. Absent: distended, tenderness - Extremities Exam Extremities exam: Present: warm, radial pulses palpable and symmetrical. Absent: calf tenderness, cyanotic, pedal edema Additional comments: 3 right shoulder incisions noted, clean and dry. - Neurological Exam Neurological exam: Present: CN II-XII intact, oriented X3, no focal deficits. Absent: pronater drift, facial droop, speech deficit Additional comments: right upper extremity weakness 4/5. DTRs 2/4 throughout - Skin Skin exam: Present: dry, intact Internal Med - H&P Results - Labs CBC & Chem 7: 02/18/19 10:05 02/18/19 10:05 Labs: Short CBC 02/18/19 Range/Units 10:05 WBC 12.9 H (4.3-11.1) K/mcL Hgb 13.2 (11.5-15.4) g/dL Hct 39.9 (35.3-44.9) % Plt Count 242 (140-400) K/mcL BMP 02/18/19 10:05 Sodium 136 Potassium 4.4 Chloride 98 Carbon Dioxide 28 BUN 16 Creatinine 0.90 Glucose 303 H Calcium 9.9 Urine 02/18/19 Range/Units 10:55 Urine Color Yellow (Yellow) Urine Clarity Clear (Clear) Urine pH 6.5 (5.0-8.0) pH Units Ur Specific [place] 1.010 (1.010-1.025) Urine Protein Negative (Neg-Trace) mg/dL Urine Glucose (UA) 100 H (Normal) mg/dL - Impressions ITS Impressions Head CT 02/18/19 10:00 IMPRESSION: No acute intracranial abnormality. The results examination were discussed with Dr. Lee on 02/18/2019 at 4:23 a.m. D/ / Rian Garcia MD / Rian Garcia MD Interpreting Provider: Rian Garcia MD - Assessment and Plan (1) Weakness Current Visit: Yes Status: Acute Assessment and plan: Right sided upper extremity weakness s/p shoulder surgery 7 weeks ago. Recent steroid injection 3 days ago. Stroke work up in the setting of severe headache, unilateral weakness, LOC. No previous episodes in the past, no history of atrial fibrillation. CT head has been unremarkable. We will obtain BL carotid duplex, MRI head without contrast Pending EKG NIHSS Fall precautions Risk stratification: last A1c 9.5, TSH WNL, dyslipidemia. Will recheck A1c, Lipid panel Admit to observation (2) Hyperglycemia due to type 2 diabetes mellitus Current Visit: Yes Status: Acute Assessment and plan: Patient's baseline glucose 200s to 400s. Current 303. Last A1c 11/20/18 = 9.5% Patient is on home insulin Lispro 30mg TID before meals. Likely non-compliant from history. Glucose 303 without anion gap. No urine ketones noted. Kidney function stable. All other electrolytes stable and WNL. I suspect her symptoms of weakness, nausea, headache, are likely secondary to uncontrolled diabetes. No anion gap. Improved with 1L IVFs. Continue maintenance fluids. Continue to trend with AM labs SSI Diabetic diet as tolerated. (3) Hyperlipidemia Current Visit: No Status: Chronic Assessment and plan: 10 year cardiovascular risk 25% based on previous LDL. Patient not on statin. Start high dose statin and recheck lipid panel tomorrow morning. Qualifiers: Hyperlipidemia type: unspecified Qualified Code(s): E78.5 - Hyperlipidemia, unspecified (4) Hypertension Current Visit: No Status: Chronic Assessment and plan: Chronic and stable. Resume home meds. Qualifiers: Hypertension type: essential hypertension Qualified Code(s): I10 - Essential (primary) hypertension (5) Leukocytosis Current Visit: Yes Status: Acute Assessment and plan: likely secondary to recent steroid injection. I expect this to return to baseline. No acute management required. Qualifiers: Qualified Code(s): D72.829 - Elevated white blood cell count, unspecified (6) DVT prophylaxis Current Visit: No Status: Acute (7) BMI greater than 30 Current Visit: Yes Status: Acute Assessment and plan: Encourage lifestyle modification. Follow up outpatient. - Time Spent With Patient Total time spent is greater than 50% in coordination of care (as documented) at patient's floor/unit and/or counseling patient: Greater than 35 minutes <Reginaldo Monsivais - Last Filed: 02/18/19 16:21> Date of Encounter: 02/18/19 Internal Medicine - H&P: HPI History of present illness: Ms. Prakash is a 53 year old female All Systems PM: A 10-system review of systems was performed and is negative for pertinent findin gs except as documented above in the HPI. - Constitutional Vitals: Temp Pulse Resp BP Pulse Ox 97.7 F 80 17 144/89 98 02/18/19 16:02 02/18/19 16:02 02/18/19 16:02 02/18/19 16:02 02/18/19 16:02 Internal Med - H&P Results - Labs CBC & Chem 7: 02/18/19 10:05 02/18/19 10:05 Labs: Short CBC 02/18/19 Range/Units 10:05 WBC 12.9 H (4.3-11.1) K/mcL Hgb 13.2 (11.5-15.4) g/dL Hct 39.9 (35.3-44.9) % Plt Count 242 (140-400) K/mcL BMP 02/18/19 10:05 Sodium 136 Potassium 4.4 Chloride 98 Carbon Dioxide 28 BUN 16 Creatinine 0.90 Glucose 303 H Calcium 9.9 Urine 02/18/19 Range/Units 10:55 Urine Color Yellow (Yellow) Urine Clarity Clear (Clear) Urine pH 6.5 (5.0-8.0) pH Units Ur Specific [place] 1.010 (1.010-1.025) Urine Protein Negative (Neg-Trace) mg/dL Urine Glucose (UA) 100 H (Normal) mg/dL - Impressions ITS Impressions Head CT 02/18/19 10:00 IMPRESSION: No acute intracranial abnormality. The results examination were discussed with Dr. Lee on 02/18/2019 at 4:23 a.m. D/ / Rian Garcia MD / Rian Garcia MD Interpreting Provider: Rian Garcia MD - Time Spent With Patient Total time spent is greater than 50% in coordination of care (as documented) at patient's floor/unit and/or counseling patient: - Attending Attestation I examined this patient and my medical decision-making was reviewed with the Resident Physician Dr. Arvizu. I agree with the documented findings, disposition and treatment plan as described except to the extent set forth below. Ms. Prakash is a 53 y/o F with known PMH of Dm2, HTN, HLD, Rt Frozen shoulder who recently had shoulder repair now she presented to ER with sudden onset Rt side weakness and severe head ache started this morning. She is out of the window for tPA treatment. She still c.o Rt arm weakness which is most consistent with her Frozen shoulder. She denied any weakness in Rt leg. She does have some expressive aphasia, however at times she does have good speech with no trouble. Gen: A, A, O x 3 Chest: Diminished BS b/l, no crackles, No rales Heart: S1S2+ RRR No murmurs Neuro: Rt arm weakness. ?? Expressive aphasia a/p 1. Acute Rt side weakness need to ro CVA will get Brain MRI in AM started on ASA 81mg in AM check lipid panel in AM 2. DM2 on ISS will check HbA1C
[2019-02-18] MEDS ORDERED: *HR* Dextrose 50 % in Water (Syg) 50 ML SYRINGE IVP PRN (15:50)
[2019-02-18] MEDS ORDERED: D5% in Water 1,000 ML IVC PRN (15:50)
[2019-02-18] MEDS ORDERED: Dextrose Gel 15 GM/37.5 ML TUBE PO PRN ×2 (15:50)
[2019-02-18] MEDS ORDERED: ALPRAZolam 0.5 MG TABLET PO PRN (16:20)
[2019-02-18] MEDS ORDERED: *HR* HYDROcodone/Acet 5/325 mg TABLET PO ONE (16:22)
[2019-02-18] MEDS: *HR* Heparin 5,000 UNIT/ML VIAL SQ SCH (17:19)
[2019-02-18] MEDS: Insulin LISPRO 300 UNITS/3 ML VIAL SQ SCH (17:20)
[2019-02-18] MEDS ORDERED: Insulin LISPRO 300 UNITS/3 ML VIAL SQ SCH (21:00)
[2019-02-18] MEDS ORDERED: traMADol 50 MG TABLET PO PRN (21:39)
[2019-02-18] MEDS: *HR* HYDROcodone/Acet 5/325 mg TABLET PO PRN (22:34)
[2019-02-18] MEDS: Gabapentin 400 MG CAPSULE PO SCH (22:34)
[2019-02-19 05:15] LABS: BUN/Creatinine Ratio 18 (6-26); Blood Urea Nitrogen 13 mg/dL (6-20); Carbon Dioxide 26 mEq/L (23-29); Chloride 104 mEq/L (98-107); Chol/HDL Ratio 5.4 (0-4.9); Cholesterol 234 mg/dL (< 200); Glucose 268 mg/dL (70-105); HDL Cholesterol 43 mg/dL (40-59); LDL Cholesterol,Calculated 148 mg/dL (0-99); Osmolality,Calculated 298 (280-300); Potassium 4.1 mEq/L (3.5-5.1); Sodium 139 mEq/L (136-145); Triglycerides 216 mg/dL (< 150); eGFR For Non-African Americans > 60 (> 60)
[2019-02-19] MEDS: *HR* Heparin 5,000 UNIT/ML VIAL SQ SCH (06:00)
[2019-02-19] MEDS: *HR* HYDROcodone/Acet 5/325 mg TABLET PO PRN (06:16)
[2019-02-19 06:47] LABS: Estimated Average Glucose 220 mg/dl; Hemoglobin A1C 9.3 %
[2019-02-19 06:48] VITALS: BP 159/97
[2019-02-19] MEDS ORDERED: BuPROPion SR (12 HR) 150 MG TABLET PO SCH (09:00)
[2019-02-19] MEDS ORDERED: Aspirin 81 MG TAB.CHEW PO SCH (09:00)
[2019-02-19] MEDS: Gabapentin 400 MG CAPSULE PO SCH (09:24)
[2019-02-19] MEDS: 0.9 % Sodium Chloride 1,000 ML IVC SCH (09:29)
[2019-02-19] MEDS: Insulin LISPRO 300 UNITS/3 ML VIAL SQ SCH (09:32)
--- NOTE | 2019-02-19 09:54 | Discharge Summary ---
- NOTES TO OUTPATIENT PROVIDER Notes to Outpatient Provider: f/u with PCP in one week. f/u with Ortho for your Rt shoulder pain. Date of Encounter: 02/19/19 Time of Encounter: 09:52 - Discharge Diagnosis (1) Transient cerebral ischemia Priority: Primary Status: Acute Qualifiers: Transient cerebral ischemia type: unspecified Qualified Code(s): G45.9 - Transient cerebral ischemic attack, unspecified (2) Shoulder pain, right Priority: Secondary Status: Acute Qualifiers: Chronicity: chronic Qualified Code(s): M25.511 - Pain in right shoulder; G89.29 - Other chronic pain (3) Anxiety Priority: Secondary Status: Chronic (4) Hyperlipidemia Priority: Secondary Status: Chronic Qualifiers: Hyperlipidemia type: unspecified Qualified Code(s): E78.5 - Hyperlipidemia, unspecified (5) Hypertension Priority: Secondary Status: Chronic Qualifiers: Hypertension type: essential hypertension Qualified Code(s): I10 - Essential (primary) hypertension (6) Diabetes Priority: Secondary Status: Chronic Qualifiers: Diabetes mellitus type: type 2 Diabetes mellitus intermediate insulin use: unspecified chair insulin use status Diabetes mellitus complication status: without complication Qualified Code(s): E11.9 - Type 2 diabetes mellitus without complications Hospital course: Ms. Prakash is a 53 y/o F with known PMH of Dm2, HTN, HLD, Rt Frozen shoulder who recently had shoulder repair now she presented to ER with sudden onset Rt side weakness and severe head ache started this morning. She is out of the window for tPA treatment. She still c.o Rt arm weakness which is most consistent with her Frozen shoulder. She denied any weakness in Rt leg. She does have some expressive aphasia, however at times she does have good speech with no trouble. Her symptoms seems to be most likely due to stress/anxiety related. 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 She scored 0 on NIH scale. Her symptoms resolved. See still complaining about right shoulder pain requesting for more pain medications. Her brain MRI came back as negative for any acute ischemia/infarction. Her lipid panel came back as abnormal with LDL @ 148, so started her on Lipitor 40mg and counseled about diet modifications. She is also not taking ASA regularly at home, educated about this too. - Time Spent with Patient Total time spent providing and/or coordinating discharge services: - Discharge Medications Prescriptions: New Atorvastatin [Lipitor] 40 mg PO HS #30 tablet Continued Citalopram [CeleXA] 40 mg PO BID Sucralfate [Carafate] 1 gm PO BID PRN PRN Reason: UPSET STOMACH ALPRAZolam [Xanax 0.5 MG Tablet] 0.5 mg PO TID PRN PRN Reason: Anxiety Carvedilol [Coreg] 6.25 mg PO BID Zolpidem [Ambien] 10 mg PO DAILY Aspirin [Adult Aspirin] 81 mg PO DAILY BuPROPion SR (12 HR) [Wellbutrin SR] 150 mg PO DAILY Gabapentin 800 mg PO QID Insulin Glargine,Hum.rec.anlog [Dhruvaglalicia Rose U-100] 40 units SQ BID Insulin LISPRO [Admelog] 0 - 30 units SQ TID MDD SLIDING SCALE Olmesartan/Hydrochlorothiazide [Olmesartan-Hctz 20-12.5 mg Tab] 1 tab PO HS Ondansetron HCl [Zofran] 4 mg PO Q8HR PRN PRN Reason: Nausea Pramipexole [Mirapex] 0.25 mg PO TID Tramadol HCl [Ultram] 50 mg PO Q4H PRN PRN Reason: Pain Changed HYDROcodone/Acet 5/325 mg [[place] 5-325 mg] 1 tab PO Q8H PRN 4 Days #12 tablet PRN Reason: Pain Home Medications: Citalopram [CeleXA] 40 mg PO BID 05/23/15 [History] Sucralfate [Carafate] 1 gm PO BID PRN 07/11/17 [History] ALPRAZolam [Xanax 0.5 MG Tablet] 0.5 mg PO TID PRN 11/15/17 [History] Aspirin [Adult Aspirin] 81 mg PO DAILY 12/26/18 [History] BuPROPion SR (12 HR) [Wellbutrin SR] 150 mg PO DAILY 12/26/18 [History] Carvedilol [Coreg] 6.25 mg PO BID 12/26/18 [History] Zolpidem [Ambien] 10 mg PO DAILY 12/26/18 [History] Gabapentin 800 mg PO QID 02/18/19 [History] Insulin Glargine,Hum.rec.anlog [Basaglar Kwikpen U-100] 40 units SQ BID 02/18/19 [History] Insulin LISPRO [Admelog] 0 - 30 units SQ TID MDD SLIDING SCALE 02/18/19 [History] Olmesartan/Hydrochlorothiazide [Olmesartan-Hctz 20-12.5 mg Tab] 1 tab PO HS [History] Ondansetron HCl [Zofran] 4 mg PO Q8HR PRN 02/18/19 [History] Pramipexole [Mirapex] 0.25 mg PO TID 02/18/19 [History] Tramadol HCl [Ultram] 50 mg PO Q4H PRN 02/18/19 [History] Atorvastatin [Lipitor] 40 mg PO HS #30 tablet 02/19/19 [Rx] HYDROcodone/Acet 5/325 mg [[place] 5-325 mg] 1 tab PO Q8H PRN 4 Days #12 tablet 02/19/19 [Rx] Allergies/Adverse Reactions: Allergy/AdvReac Type Severity Reaction Status Date / Time latex AdvReac Cramping Verified 02/18/19 19:14 of the Muscles metformin AdvReac Diarrhea Verified 02/18/19 19:14 Sulfa (Sulfonamide AdvReac Vomiting Verified 02/18/19 19:14 Antibiotics) sulfamethoxazole AdvReac Vomiting Verified 02/18/19 19:14 [From Bactrim] trimethoprim [From Bactrim] AdvReac Vomiting Verified 02/18/19 19:14 Date of admission: 02/18/19 13:47 Primary care physician: Alfredo Cummings Jr, MD - Constitutional Vitals: Temp Pulse Resp BP Pulse Ox 98.4 F 76 13 159/97 90 02/19/19 06:41 02/19/19 06:41 02/19/19 06:41 02/19/19 06:41 02/19/19 09:37 General appearance: Present: cooperative, A&O X 3, no acute distress, answers questions appropriately Exam: a - Head Head exam: Present: atraumatic, normal inspection - Neck Neck exam general surgery: Present: supple - Respiratory Respiratory exam: Present: decreased breath sounds. Absent: rales, respiratory distress, rhonchi, wheezes - Cardiovascular Cardiovascular exam: Present: RRR, +S1, +S2. Absent: tachycardia - GI/Abdominal GI/Abdominal exam: Present: normal bowel sounds, soft. Absent: rebound, rigid, tenderness - Extremities Exam Extremities exam: Absent: calf tenderness, pedal edema, tenderness Additional comments: Rt shoulder pain.. limited ROM in Rt shoulder due to pain - Back Exam Back exam: Absent: CVA tenderness (L), CVA tenderness (R) - Neurological Exam Neurological exam: Present: alert, oriented X3, strengths equal and symetr throughout. Absent: motor sensory deficit, pronater drift, facial droop, speech deficit - Psychiatric Psychiatric exam: Present: anxious, depressed - Patient Status Disposition: Home, Self-Care Condition: Good Overall status at discharge: patient is back to baseline - Discharge Instructions Follow Up With: Alfredo Cummings Jr, MD [Primary Care Provider] - Jakob Jefferson MD [Non-Partnered Physician] - - Diet and Activity Activity: increase activity as tolerated Diet: low fat, low cholesterol, low salt diet
--- NOTE | 2019-02-19 16:16 | Electrocardiograph Report ---
[address] Test Date: 2019-02-18 Pat Name: Magdalena Prakash Department: [id number] Room: 3B63 Gender: F Reinforcer: : 1965 Requested By: Tyler Lee Order Number: [id number] Reading MD: Nelson Castro Measurements Intervals [place] Rate: 88 P: 37 MT: 169 QRS: -12 QRSD: 101 T: 0 QT: 387 QTc: 469 Interpretive Statements Sinus rhythm Low voltage, precordial leads Abnormal R-wave progression, early transition Borderline T abnormalities, anterior leads Baseline wander in lead(s) III aVL V5 V6 Electronically Signed On 02-19-2019 16:15:06 EDT by Nelson Castro
== END 2019-02-19 11:18 | disposition home or self-care (01) ==
LOC: 3BNU 09:53 → EMEROOARM 09:53 → 3BNU 15:44
PROVIDERS: ADMIT Student in an Organized Health Care Education/Training Program; ATTEND Student in an Organized Health Care Education/Training Program

== ENCOUNTER 2019-10-21 23:28 | Observation (INO) ==
[2019-10-21] MEDS ORDERED: Isovue-370 500 ML BOTTLE IVP ONE (23:56)
[2019-10-21] MEDS ORDERED: Ondansetron 4 MG/2 ML VIAL IVP ONE (23:56)
[2019-10-21] MEDS ORDERED: 0.9 % Sodium Chloride 1,000 ML IVC ONE ×2 (23:56→23:57)
[2019-10-21] MEDS ORDERED: Morphine Sulfate 2 MG/ML SYRINGE IVP ONE (23:56)
[2019-10-21] MEDS ORDERED: Piperacillin/Tazobactam 3.375 GM in 0.9 % Sodium Chloride Mini Bag 100 ML IVPB ONE (23:56)
[2019-10-22 00:23] LABS: Alanine Aminotransferase 40 Units/L (7-52); Albumin 4.5 g/dL (3.5-5.7); Albumin/Globulin Ratio 1.2 (1.1-2.2); Alkaline Phosphatase 158 Units/L (34-104); Aspartate Amino Transferase 22 Units/L (13-39); BUN/Creatinine Ratio 14 (6-26); Basophils % 0.2 %; Bilirubin,Direct 0.1 mg/dL (0.0-0.2); Bilirubin,Indirect 0.5 mg/dL (0.0-1.0); Bilirubin,Total 0.6 mg/dL (0.3-1.0); Blood Urea Nitrogen 13 mg/dL (6-20); Calcium 10.2 mg/dL (8.6-10.3); Carbon Dioxide 21 mEq/L (23-29); Chloride 99 mEq/L (98-107); Eosinophils # 0.1 K/mcL (0.0-0.6); Globulin 3.8 g/dL (2.4-3.5); Glucose 295 mg/dL (70-105); Immature Granulocytes % 0.5 % (0-4); Lipase 14 Units/L (11-82); Lymphocytes # 2.3 K/mcL (0.6-4.6); Lymphocytes % 17.6 %; Mean Corpuscular HGB Conc 34.1 g/dL (31.6-35.5); Mean Corpuscular Hemoglobin 27.9 pg (28.0-33.3); Mean Corpuscular Volume 81.8 fL (83.0-100.0); Mean Platelet Volume 9.1 fL (9.4-12.4); Monocytes # 0.5 K/mcL (0.0-1.3); Monocytes % 3.6 %; Neutrophils # 9.9 K/mcL (1.6-8.9); Osmolality,Calculated 289 (280-300); Platelet Count 293 K/mcL (140-400); Red Blood Count 5.01 M/mcL (3.82-4.97); Red Cell Distribution Width 13.2 % (11.5-14.5); Segmented Neutrophils % 77.1 %; Sodium 134 mEq/L (136-145); Total Protein 8.3 g/dL (6.4-8.9); White Blood Count 12.8 K/mcL (4.3-11.1); eGFR For African Americans > 60 (> 60); eGFR For Non-African Americans > 60 (> 60)
[2019-10-22 00:52] LABS: Bilirubin,Urine Negative (Negative); Blood,Urine Negative (Negative); Clarity,Urine Clear (Clear); Color,Urine Yellow (Yellow); Glucose,Urine (UA) Normal (Normal); Ketones,Urine Trace mg/dL (Negative); Leukocyte Esterase,Urine Negative (Negative); Nitrite,Urine Negative (Negative); Protein,Urine Trace mg/dL (Neg-Trace); Specific Gravity,Urine 1.014 (1.010-1.025); Urobilinogen,Urine Normal (Normal)
[2019-10-22] MEDS ORDERED: *HR* HYDROmorphone (PF) 1 MG/ML SYRINGE IVP ONE ×2 (01:20→04:45)
[2019-10-22] MEDS ORDERED: Metoclopramide 10 MG/2 ML VIAL IVP ONE ×2 (01:26→16:37)
[2019-10-22] MEDS ORDERED: Naloxone 0.4 MG/ML INJ IVP PRN (07:38)
[2019-10-22] MEDS ORDERED: *HR* HYDROmorphone (PF) 1 MG/ML SYRINGE IVP PRN (09:53)
[2019-10-22] MEDS: Insulin LISPRO 300 UNITS/3 ML VIAL SQ SCH ×2 (12:40→13:17)
[2019-10-22] MEDS: *HR* Heparin 5,000 UNIT/ML VIAL SQ SCH ×2 (12:49→21:06)
[2019-10-22] MEDS: Gabapentin 400 MG CAPSULE PO SCH ×3 (12:49→21:06)
[2019-10-22] MEDS: ALPRAZolam 0.5 MG TABLET PO PRN (12:49)
[2019-10-22] MEDS: *HR* HYDROmorphone (PF) 1 MG/ML SYRINGE IVP PRN (17:38)
[2019-10-23] MEDS: *HR* HYDROmorphone (PF) 1 MG/ML SYRINGE IVP PRN ×3 (01:20→20:59)
[2019-10-23] MEDS: *HR* Heparin 5,000 UNIT/ML VIAL SQ SCH ×3 (07:54→20:59)
[2019-10-23] MEDS: Insulin LISPRO 300 UNITS/3 ML VIAL SQ SCH ×4 (09:13→21:13)
[2019-10-23] MEDS: Aspirin Enteric Coated 81 MG Tablet PO SCH (09:14)
[2019-10-23] MEDS: Gabapentin 400 MG CAPSULE PO SCH ×4 (09:14→20:58)
[2019-10-23 12:25] LABS: Basophils % 0.3 %; Eosinophils # 0.3 K/mcL (0.0-0.6); Eosinophils % 2.9 %; Immature Granulocytes % 0.4 % (0-4); Lymphocytes # 2.2 K/mcL (0.6-4.6); Lymphocytes % 24.4 %; Mean Corpuscular HGB Conc 33.8 g/dL (31.6-35.5); Mean Corpuscular Hemoglobin 27.6 pg (28.0-33.3); Mean Corpuscular Volume 81.7 fL (83.0-100.0); Mean Platelet Volume 8.9 fL (9.4-12.4); Monocytes # 0.4 K/mcL (0.0-1.3); Monocytes % 4.9 %; Neutrophils # 6.1 K/mcL (1.6-8.9); Platelet Count 224 K/mcL (140-400); Red Blood Count 4.16 M/mcL (3.82-4.97); Red Cell Distribution Width 13.1 % (11.5-14.5); Segmented Neutrophils % 67.1 %
[2019-10-23 12:27] LABS: Hemoglobin 11.5 g/dL (11.5-15.4)
[2019-10-23 12:41] LABS: BUN/Creatinine Ratio 10 (6-26); Blood Urea Nitrogen 7 mg/dL (6-20); Calcium 9.2 mg/dL (8.6-10.3); Carbon Dioxide 27 mEq/L (23-29); Chloride 100 mEq/L (98-107); Glucose 206 mg/dL (70-105); Osmolality,Calculated 284 (280-300); Potassium 3.8 mEq/L (3.5-5.1); Sodium 135 mEq/L (136-145); eGFR For African Americans > 60 (> 60); eGFR For Non-African Americans > 60 (> 60)
[2019-10-23 12:42] LABS: % Iron Saturation 15 % (15-50); Iron 45 mcg/dL (50-170); Transferrin 218 mg/dL (203-362)
[2019-10-23 13:01] LABS: Ferritin 157 ng/mL (10-120)
[2019-10-23 16:31] LABS: Estimated Average Glucose 226 mg/dl
[2019-10-23] MEDS ORDERED: *HR* Promethazine 25 MG/ML VIAL IVP PRN (20:50)
[2019-10-24] MEDS: *HR* Heparin 5,000 UNIT/ML VIAL SQ SCH ×3 (05:09→15:02)
[2019-10-24 07:18] LABS: Basophils % 0.3 %; Eosinophils # 0.2 K/mcL (0.0-0.6); Eosinophils % 2.3 %; Hematocrit 31.8 % (35.3-44.9); Hemoglobin 10.5 g/dL (11.5-15.4); Immature Granulocytes % 0.3 % (0-4); Mean Corpuscular Hemoglobin 27.6 pg (28.0-33.3); Mean Corpuscular Volume 83.7 fL (83.0-100.0); Mean Platelet Volume 8.8 fL (9.4-12.4); Monocytes # 0.4 K/mcL (0.0-1.3); Monocytes % 4.7 %; Neutrophils # 5.2 K/mcL (1.6-8.9); Platelet Count 183 K/mcL (140-400); Red Cell Distribution Width 12.9 % (11.5-14.5); Segmented Neutrophils % 66.4 %; White Blood Count 7.7 K/mcL (4.3-11.1)
[2019-10-24 07:37] LABS: BUN/Creatinine Ratio 8 (6-26); Blood Urea Nitrogen 6 mg/dL (6-20); Calcium 9.2 mg/dL (8.6-10.3); Carbon Dioxide 27 mEq/L (23-29); Chloride 102 mEq/L (98-107); Glucose 237 mg/dL (70-105); Osmolality,Calculated 291 (280-300); Potassium 3.9 mEq/L (3.5-5.1); Sodium 138 mEq/L (136-145); eGFR For African Americans > 60 (> 60); eGFR For Non-African Americans > 60 (> 60)
[2019-10-24] MEDS ORDERED: Simethicone 80 MG TAB.CHEW PO PRN (08:01)
[2019-10-24] MEDS: Insulin LISPRO 300 UNITS/3 ML VIAL SQ SCH ×4 (08:13→21:45)
[2019-10-24] MEDS: Gabapentin 400 MG CAPSULE PO SCH ×4 (08:14→21:44)
[2019-10-24] MEDS: Aspirin Enteric Coated 81 MG Tablet PO SCH (08:15)
[2019-10-24] MEDS: *HR* HYDROmorphone (PF) 1 MG/ML SYRINGE IVP PRN (08:15)
[2019-10-24] MEDS ORDERED: *HR* Promethazine 25 MG/ML VIAL IVP PRN (08:27)
[2019-10-24] MEDS: ALPRAZolam 0.5 MG TABLET PO PRN (09:59)
[2019-10-24] MEDS ORDERED: Lidocaine -MPF 2% 2 ML VIAL ONE (11:38)
[2019-10-24] MEDS ORDERED: *HR* Propofol 200 MG/20 ML VIAL IVP ONE (11:38)
[2019-10-24] MEDS: 0.9 % Sodium Chloride 500 ML IVC SCH (12:06)
[2019-10-24] MEDS: Simethicone 80 MG TAB.CHEW PO SCH ×2 (12:45→17:36)
[2019-10-24] MEDS: Insulin DETEMIR 100 UNIT/ML X5UNITS SQ SCH ×2 (12:47→21:45)
[2019-10-24] MEDS ORDERED: *HR* HYDROcodone/Acet 7.5/325 mg TABLET PO PRN (13:05)
[2019-10-24] MEDS: ALPRAZolam 0.5 MG TABLET PO SCH ×2 (15:02→21:44)
[2019-10-25] MEDS: 0.9 % Sodium Chloride 500 ML IVC SCH ×2 (00:57→09:11)
[2019-10-25 04:25] LABS: Hematocrit 32.8 % (35.3-44.9); Hemoglobin 11.1 g/dL (11.5-15.4)
[2019-10-25] MEDS: *HR* Heparin 5,000 UNIT/ML VIAL SQ SCH (05:37)
[2019-10-25 08:10] VITALS: BP 132/83
[2019-10-25] MEDS: Aspirin Enteric Coated 81 MG Tablet PO SCH (09:07)
[2019-10-25] MEDS: Simethicone 80 MG TAB.CHEW PO SCH (09:08)
[2019-10-25] MEDS: ALPRAZolam 0.5 MG TABLET PO SCH (09:08)
[2019-10-25] MEDS: Gabapentin 400 MG CAPSULE PO SCH (09:08)
[2019-10-25] MEDS: Insulin DETEMIR 100 UNIT/ML X5UNITS SQ SCH (09:10)
[2019-10-25] MEDS: Insulin LISPRO 300 UNITS/3 ML VIAL SQ SCH (09:10)
== END 2019-10-25 11:35 | disposition home or self-care (01) ==
LOC: EMEROOARM 23:28 → CDU 23:28 → SUATTDRO 10-22 09:23 → CDU 10-22 10:31 → 3ANU 10-22 17:32
PROVIDERS: ADMIT Internal Medicine; ATTEND Family Medicine
PROC: ENDOEBX (2019-10-24 13:00)

== ENCOUNTER 2020-07-20 02:11 | Observation (INO) ==
[2020-07-20] MEDS ORDERED: Aspirin 81 MG TAB.CHEW PO ONE (03:27)
[2020-07-20] MEDS ORDERED: Nitroglycerin 0.4 MG TAB.SUBL SL PRN (03:27)
[2020-07-20] MEDS ORDERED: Isovue-370 500 ML BOTTLE IVP ONE (03:27)
[2020-07-20 03:55] LABS: Basophils % 0.2 %; Eosinophils # 0.2 K/mcL (0.0-0.6); Eosinophils % 1.8 %; Hematocrit 39.2 % (35.3-44.9); Hemoglobin 13.1 g/dL (11.5-15.4); Immature Granulocytes % 0.6 % (0-4); Lymphocytes # 2.3 K/mcL (0.6-4.6); Lymphocytes % 22.4 %; Mean Corpuscular HGB Conc 33.4 g/dL (31.6-35.5); Mean Corpuscular Hemoglobin 27.1 pg (28.0-33.3); Mean Platelet Volume 8.5 fL (9.4-12.4); Monocytes # 0.4 K/mcL (0.0-1.3); Monocytes % 4.2 %; Neutrophils # 7.1 K/mcL (1.6-8.9); Platelet Count 218 K/mcL (140-400); Red Blood Count 4.84 M/mcL (3.82-4.97); Red Cell Distribution Width 13.1 % (11.5-14.5); Segmented Neutrophils % 70.8 %; White Blood Count 10.1 K/mcL (4.3-11.1)
[2020-07-20 04:02] LABS: Bilirubin,Urine Negative (Negative); Blood,Urine Negative (Negative); Clarity,Urine Clear (Clear); Color,Urine Light-Yellow (Yellow); Glucose,Urine (UA) Normal (Normal); Hyaline Casts,Urine Few per lpf (None Seen); Ketones,Urine Negative (Negative); Leukocyte Esterase,Urine Negative (Negative); Mucus,Urine Few per lpf (None-Few); Nitrite,Urine Negative (Negative); Protein,Urine 30 mg/dL (Neg-Trace); RBC,Urine 0-3 per hpf (0-3); Squamous Epithelial Cell,Urine Few per hpf (None-Few); Urobilinogen,Urine Normal (Normal)
[2020-07-20 04:10] LABS: Prothrombin Time 11.7 Seconds (9.4-12.1)
[2020-07-20 04:12] LABS: Activated Partial Thrombo Time 34.7 Seconds (26.0-36.0)
[2020-07-20 04:18] LABS: Alanine Aminotransferase 15 Units/L (7-52); Albumin 4.3 g/dL (3.5-5.7); Albumin/Globulin Ratio 1.3 (1.1-2.2); Alkaline Phosphatase 123 Units/L (34-104); Aspartate Amino Transferase 10 Units/L (13-39); BUN/Creatinine Ratio 18 (6-26); Bilirubin,Direct 0.1 mg/dL (0.0-0.2); Bilirubin,Indirect 0.2 mg/dL (0.0-1.0); Bilirubin,Total 0.3 mg/dL (0.3-1.0); Blood Urea Nitrogen 14 mg/dL (6-20); Carbon Dioxide 28 mEq/L (23-29); Chloride 101 mEq/L (98-107); Globulin 3.2 g/dL (2.4-3.5); Glucose 217 mg/dL (70-105); Osmolality,Calculated 295 (280-300); Potassium 3.8 mEq/L (3.5-5.1); Sodium 139 mEq/L (136-145); Total Protein 7.5 g/dL (6.4-8.9); Troponin I < 0.03 ng/mL (< 0.04); eGFR For African Americans > 60 (> 60); eGFR For Non-African Americans > 60 (> 60)
[2020-07-20 05:13] LABS: Albumin 4.4 g/dL (3.5-5.7); Albumin/Globulin Ratio 1.5 (1.1-2.2); Bilirubin,Indirect 0.3 mg/dL (0.0-1.0); Bilirubin,Total 0.3 mg/dL (0.3-1.0); Total Protein 7.4 g/dL (6.4-8.9)
[2020-07-20] MEDS ORDERED: Acetaminophen 325 MG TABLET PO ONE (05:19)
[2020-07-20] MEDS: 0.9 % Sodium Chloride 1,000 ML IVC SCH ×3 (05:53→15:36)
[2020-07-20] MEDS ORDERED: GI Cocktail 40 ML EACH PO ONE (06:47)
[2020-07-20] MEDS ORDERED: Naloxone 0.4 MG/ML INJ IVP PRN (10:41)
[2020-07-20] MEDS ORDERED: Ondansetron 4 MG/2 ML VIAL IVP PRN ×2 (10:41→18:23)
[2020-07-20] MEDS ORDERED: Morphine Sulfate 2 MG/ML SYRINGE IVP PRN (13:17)
[2020-07-20 17:21] LABS: Troponin I < 0.03 ng/mL (< 0.04)
[2020-07-20] MEDS ORDERED: *HR* Dextrose 50 % in Water (Vial) 50 ML VIAL IVP PRN (18:22)
[2020-07-20] MEDS ORDERED: Dextrose Gel 15 GM/37.5 ML TUBE PO PRN ×2 (18:22)
[2020-07-20] MEDS ORDERED: D5% in Water 1,000 ML IVC PRN (18:22)
[2020-07-20 18:44] LABS: Lipase 8 Units/L (11-82)
[2020-07-20] MEDS ORDERED: Insulin LISPRO 300 UNITS/3 ML VIAL SQ SCH (21:00)
[2020-07-21] MEDS ORDERED: Acetaminophen 325 MG TABLET PO ONE (00:11)
[2020-07-21] MEDS: 0.9 % Sodium Chloride 1,000 ML IVC SCH (01:55)
[2020-07-21] MEDS ORDERED: Regadenoson 0.4 MG/5 ML SYRINGE IVP ONE (06:18)
[2020-07-21 06:44] LABS: BUN/Creatinine Ratio 15 (6-26); Blood Urea Nitrogen 11 mg/dL (6-20); Calcium 9.1 mg/dL (8.6-10.3); Carbon Dioxide 25 mEq/L (23-29); Chloride 103 mEq/L (98-107); Glucose 231 mg/dL (70-105); Magnesium 1.8 mg/dL (1.6-2.6); Osmolality,Calculated 289 (280-300); Potassium 3.8 mEq/L (3.5-5.1); Sodium 136 mEq/L (136-145); eGFR For African Americans > 60 (> 60); eGFR For Non-African Americans > 60 (> 60)
[2020-07-21 07:01] LABS: Basophils % 0.4 %; Eosinophils # 0.2 K/mcL (0.0-0.6); Eosinophils % 1.9 %; Hematocrit 35.7 % (35.3-44.9); Hemoglobin 11.7 g/dL (11.5-15.4); Immature Granulocytes % 0.4 % (0-4); Lymphocytes # 2.1 K/mcL (0.6-4.6); Lymphocytes % 25.9 %; Mean Corpuscular HGB Conc 32.8 g/dL (31.6-35.5); Mean Corpuscular Hemoglobin 27.1 pg (28.0-33.3); Mean Corpuscular Volume 82.6 fL (83.0-100.0); Mean Platelet Volume 8.8 fL (9.4-12.4); Monocytes # 0.3 K/mcL (0.0-1.3); Neutrophils # 5.3 K/mcL (1.6-8.9); Platelet Count 209 K/mcL (140-400); Red Blood Count 4.32 M/mcL (3.82-4.97); Red Cell Distribution Width 13.2 % (11.5-14.5); Segmented Neutrophils % 67.4 %; White Blood Count 7.9 K/mcL (4.3-11.1)
[2020-07-21 07:09] LABS: Chol/HDL Ratio 4.8 (0-4.9)
[2020-07-21] MEDS ORDERED: Benzonatate 100 MG CAPSULE PO PRN (09:25)
[2020-07-21] MEDS ORDERED: Ondansetron ODT 4 MG TAB.RAPDIS PO PRN (09:25)
[2020-07-21] MEDS ORDERED: *HR* Insulin Regular U-500 500 UNIT/ML SQ SCH (09:25)
[2020-07-21] MEDS ORDERED: *HR* HYDROcodone/Acet 5/325 mg TABLET PO PRN (09:25)
[2020-07-21] MEDS ORDERED: ALPRAZolam 1 MG TABLET PO PRN (09:25)
[2020-07-21] MEDS ORDERED: BuPROPion SR (12 HR) 150 MG TABLET PO SCH (09:30)
[2020-07-21] MEDS ORDERED: Aspirin 81 MG TAB.CHEW PO SCH (09:30)
[2020-07-21] MEDS ORDERED: carvediloL 6.25 MG TABLET PO SCH (09:30)
[2020-07-21] MEDS ORDERED: Gabapentin 400 MG CAPSULE PO SCH (09:30)
[2020-07-21] MEDS: Insulin LISPRO 300 UNITS/3 ML VIAL SQ SCH ×2 (10:02→12:21)
[2020-07-21 10:25] LABS: Estimated Average Glucose 174 mg/dl
[2020-07-21 11:12] VITALS: BP 135/86
[2020-07-21] MEDS ORDERED: OLMESARTAN PO SCH (21:00)
[2020-07-21] MEDS ORDERED: traZODone 50 MG TABLET PO SCH (21:00)
[2020-07-21] MEDS ORDERED: hydroCHLOROthiazide 25 MG TABLET PO SCH (21:00)
[2020-07-21] MEDS ORDERED: HYDROCHLOROTHIAZIDE PO SCH (21:00)
[2020-07-21] MEDS ORDERED: [UNRECOGNIZED DRUG - OTHER] PO SCH (21:00)
== END 2020-07-21 15:09 | disposition home or self-care (01) ==
LOC: EMEROOARM 02:11 → 3BNU 02:11 → SUATTDRO 09:55 → 3BNU 11:16
PROVIDERS: ADMIT Pharmacist; ATTEND Internal Medicine

== ENCOUNTER 2022-02-20 15:18 | Observation (INO) ==
[2022-02-20 16:19] LABS: Basophils % 0.4 %; Eosinophils # 0.2 K/mcL (0.0-0.6); Eosinophils % 1.4 %; Hematocrit 42.7 % (35.3-44.9); Hemoglobin 14.3 g/dL (11.5-15.4); Immature Granulocytes % 0.5 % (0-4); Lymphocytes # 1.9 K/mcL (0.6-4.6); Lymphocytes % 17.5 %; Mean Corpuscular HGB Conc 33.5 g/dL (31.6-35.5); Mean Corpuscular Hemoglobin 27.6 pg (28.0-33.3); Mean Corpuscular Volume 82.4 fL (83.0-100.0); Mean Platelet Volume 9.2 fL (9.4-12.4); Monocytes # 0.4 K/mcL (0.0-1.3); Monocytes % 3.7 %; Neutrophils # 8.2 K/mcL (1.6-8.9); Platelet Count 329 K/mcL (140-400); Red Blood Count 5.18 M/mcL (3.82-4.97); Red Cell Distribution Width 13.1 % (11.5-14.5); Segmented Neutrophils % 76.5 %; White Blood Count 10.7 K/mcL (4.3-11.1)
[2022-02-20 16:37] LABS: Influenza A PCR Negative (Negative); Influenza B PCR Negative (Negative); Resp. Syncytial Virus PCR Negative (Negative)
[2022-02-20 16:38] LABS: SARS-CoV-2 by PCR (In House) Negative (Negative)
[2022-02-20 16:42] LABS: Alanine Aminotransferase 20 Units/L (7-52); Albumin 4.5 g/dL (3.5-5.7); Albumin/Globulin Ratio 1.2 (1.1-2.2); Alkaline Phosphatase 126 Units/L (34-104); Aspartate Amino Transferase 12 Units/L (13-39); BUN/Creatinine Ratio 15 (6-26); Bilirubin,Total 0.5 mg/dL (0.3-1.0); Blood Urea Nitrogen 33 mg/dL (6-20); Calcium 10.1 mg/dL (8.6-10.3); Carbon Dioxide 26 mEq/L (23-29); Chloride 89 mEq/L (98-107); Globulin 3.8 g/dL (2.4-3.5); Glucose 381 mg/dL (70-105); Magnesium 1.9 mg/dL (1.6-2.6); Osmolality,Calculated 293 (280-300); Phosphorous 4.8 mg/dL (2.7-4.5); Potassium 3.4 mEq/L (3.5-5.1); Sodium 130 mEq/L (136-145); Total Protein 8.3 g/dL (6.4-8.9); Troponin I < 0.03 ng/mL (< 0.04); eGFR For African Americans 29 (> 60); eGFR For Non-African Americans 24 (> 60)
[2022-02-20] MEDS ORDERED: 0.9 % Sodium Chloride 1,000 ML IVC ONE (16:55)
[2022-02-20] MEDS ORDERED: Ipratropium/Albuterol Neb 3 ML IH ONE (16:57)
[2022-02-20] MEDS ORDERED: D5% in Water 1,000 ML IVC PRN (20:24)
[2022-02-20] MEDS ORDERED: Dextrose 4 GM Chewable Tablets PO PRN ×2 (20:24)
[2022-02-20] MEDS ORDERED: *HR* Dextrose 50 % in Water (Syg) 50 ML SYRINGE IVP PRN (20:24)
[2022-02-20] MEDS ORDERED: Naloxone 0.4 MG/ML INJ IVP PRN (20:24)
[2022-02-20] MEDS ORDERED: Ipratropium/Albuterol Neb 3 ML IH SCH (20:45)
[2022-02-20] MEDS ORDERED: Insulin DETEMIR 100 UNIT/ML X5UNITS SUBQ SCH (21:00)
[2022-02-20 21:55] LABS: Protein/Creatinine Ratio,Urine 0.07 mg/mg (0.00-0.20)
[2022-02-20] MEDS: *HR* Heparin 5,000 UNIT/ML VIAL SQ SCH (22:00)
[2022-02-20] MEDS: GuaiFENesin/Dextromethorphan TABLET PO SCH (22:00)
[2022-02-20] MEDS: Ringers Solution, Lactated 1,000 ML IVC SCH (22:00)
[2022-02-20] MEDS: predniSONE 20 MG TABLET PO SCH (22:03)
[2022-02-20] MEDS: Acetylcysteine 10% 2 ML INHSOL IH SCH (22:59)
[2022-02-20] MEDS: Benzonatate 100 MG CAPSULE PO PRN (23:56)
[2022-02-21] MEDS: HYDROcodone BIT/Homatropine LQ 5 MG/5 ML UDC PO PRN ×3 (01:34→17:12)
[2022-02-21] MEDS: Acetylcysteine 10% 2 ML INHSOL IH SCH ×4 (03:32→20:43)
[2022-02-21] MEDS: Ringers Solution, Lactated 1,000 ML IVC SCH (04:59)
[2022-02-21] MEDS: *HR* Heparin 5,000 UNIT/ML VIAL SQ SCH ×3 (05:11→21:36)
[2022-02-21] MEDS: Benzonatate 100 MG CAPSULE PO PRN (05:11)
[2022-02-21 05:28] LABS: Basophils % 0.2 %; Eosinophils % 0.1 %; Hematocrit 34.7 % (35.3-44.9); Immature Granulocytes % 0.4 % (0-4); Lymphocytes # 0.9 K/mcL (0.6-4.6); Lymphocytes % 7.9 %; Mean Corpuscular HGB Conc 33.4 g/dL (31.6-35.5); Mean Corpuscular Hemoglobin 27.3 pg (28.0-33.3); Mean Corpuscular Volume 81.6 fL (83.0-100.0); Mean Platelet Volume 9.3 fL (9.4-12.4); Monocytes # 0.1 K/mcL (0.0-1.3); Monocytes % 1.1 %; Platelet Count 244 K/mcL (140-400); Red Blood Count 4.25 M/mcL (3.82-4.97); Red Cell Distribution Width 13.2 % (11.5-14.5); Segmented Neutrophils % 90.3 %; White Blood Count 11.1 K/mcL (4.3-11.1)
[2022-02-21 05:30] LABS: Hemoglobin 11.6 g/dL (11.5-15.4)
[2022-02-21 05:47] LABS: Albumin 3.9 g/dL (3.5-5.7); Albumin/Globulin Ratio 1.1 (1.1-2.2); Bilirubin,Total 0.4 mg/dL (0.3-1.0); Calcium 9.4 mg/dL (8.6-10.3); Globulin 3.6 g/dL (2.4-3.5); Magnesium 1.9 mg/dL (1.6-2.6); Phosphorous 3.1 mg/dL (2.7-4.5); Potassium 4.8 mEq/L (3.5-5.1); Total Protein 7.5 g/dL (6.4-8.9)
[2022-02-21 06:11] LABS: Bacteria,Urine Few per hpf (None-Few); Bilirubin,Urine Negative (Negative); Blood,Urine Negative (Negative); Clarity,Urine Clear (Clear); Color,Urine Colorless (Yellow); Glucose,Urine (UA) >=1000 mg/dL (Normal); Ketones,Urine Negative (Negative); Leukocyte Esterase,Urine Negative (Negative); Nitrite,Urine Negative (Negative); PH,Urine 5.5 pH Units (5.0-8.0); Protein,Urine Negative (Neg-Trace); RBC,Urine 0-3 per hpf (0-3); Specific Gravity,Urine 1.014 (1.010-1.025); Squamous Epithelial Cell,Urine Few per hpf (None-Few); Urobilinogen,Urine Normal (Normal); WBC,Urine 0-3 per hpf (0-3)
[2022-02-21] MEDS ORDERED: Insulin LISPRO 300 UNITS/3 ML VIAL SUBQ SCH ×2 (07:30→08:00)
[2022-02-21] MEDS: Fluticasone Propionate Nasal 50 MCG/SPRAY BOTTLE NS SCH (07:37)
[2022-02-21] MEDS: predniSONE 20 MG TABLET PO SCH (07:37)
[2022-02-21] MEDS: GuaiFENesin/Dextromethorphan TABLET PO SCH ×2 (07:37→21:36)
[2022-02-21] MEDS ORDERED: 0.9 % Sodium Chloride 1,000 ML IVC SCH (08:00)
[2022-02-21 08:33] LABS: Estimated Average Glucose 203 mg/dl; Hemoglobin A1C 8.7 %
[2022-02-21] MEDS ORDERED: Insulin DETEMIR 100 UNIT/ML X5UNITS SUBQ SCH (09:00)
[2022-02-21] MEDS: ALPRAZolam 1 MG TABLET PO PRN ×2 (09:11→14:59)
[2022-02-21] MEDS: Insulin DETEMIR 100 UNIT/ML X5UNITS SUBQ SCH ×2 (09:13→21:46)
[2022-02-21] MEDS: Ipratropium/Albuterol Neb 3 ML IH SCH ×3 (10:25→20:43)
[2022-02-21] MEDS: Insulin LISPRO 300 UNITS/3 ML VIAL SUBQ SCH ×2 (11:49→17:14)
[2022-02-21] MEDS: Pregabalin 50 MG CAPSULE PO SCH ×2 (14:56→21:36)
[2022-02-21] MEDS: Magic Mouthwash 10 ML UD Cup PO SCH (22:35)
[2022-02-22] MEDS: Acetylcysteine 10% 2 ML INHSOL IH SCH ×4 (04:25→22:22)
[2022-02-22] MEDS: Ipratropium/Albuterol Neb 3 ML IH SCH ×4 (04:25→22:22)
[2022-02-22] MEDS: *HR* Heparin 5,000 UNIT/ML VIAL SQ SCH ×3 (06:36→21:59)
[2022-02-22] MEDS: Magic Mouthwash 10 ML UD Cup PO SCH ×3 (06:36→17:27)
[2022-02-22 07:43] LABS: Hematocrit 31.9 % (35.3-44.9); Hemoglobin 10.7 g/dL (11.5-15.4); Mean Corpuscular HGB Conc 33.5 g/dL (31.6-35.5); Mean Corpuscular Hemoglobin 27.6 pg (28.0-33.3); Mean Corpuscular Volume 82.4 fL (83.0-100.0); Mean Platelet Volume 9.4 fL (9.4-12.4); Platelet Count 249 K/mcL (140-400); Red Blood Count 3.87 M/mcL (3.82-4.97); Red Cell Distribution Width 12.7 % (11.5-14.5); White Blood Count 7.7 K/mcL (4.3-11.1)
[2022-02-22] MEDS: GuaiFENesin/Dextromethorphan TABLET PO SCH ×2 (08:21→21:17)
[2022-02-22] MEDS: Pregabalin 50 MG CAPSULE PO SCH ×3 (08:21→21:17)
[2022-02-22] MEDS: Azithromycin 250 MG TABLET PO SCH (08:21)
[2022-02-22] MEDS: BuPROPion SR (12 HR) 150 MG TABLET PO SCH (08:22)
[2022-02-22] MEDS: predniSONE 20 MG TABLET PO SCH (08:22)
[2022-02-22] MEDS: cefTRIAXone 1,000 MG in 0.9 % Sodium Chloride 10 ML IVP SCH (08:22)
[2022-02-22] MEDS: Insulin LISPRO 300 UNITS/3 ML VIAL SUBQ SCH ×6 (08:23→17:28)
[2022-02-22] MEDS: Fluticasone Propionate Nasal 50 MCG/SPRAY BOTTLE NS SCH (08:23)
[2022-02-22 09:04] LABS: Magnesium 1.8 mg/dL (1.6-2.6); Phosphorous 3.2 mg/dL (2.7-4.5)
[2022-02-22 09:12] LABS: BUN/Creatinine Ratio 26 (6-26); Blood Urea Nitrogen 23 mg/dL (6-20); Calcium 9.7 mg/dL (8.6-10.3); Carbon Dioxide 25 mEq/L (23-29); Chloride 97 mEq/L (98-107); Glucose 304 mg/dL (70-105); Osmolality,Calculated 291 (280-300); Sodium 133 mEq/L (136-145); eGFR For African Americans > 60 (> 60); eGFR For Non-African Americans > 60 (> 60)
[2022-02-22] MEDS: Insulin DETEMIR 100 UNIT/ML X5UNITS SUBQ SCH ×2 (10:09→21:16)
[2022-02-22] MEDS: ALPRAZolam 1 MG TABLET PO PRN (23:46)
[2022-02-23] MEDS: Ipratropium/Albuterol Neb 3 ML IH SCH (04:06)
[2022-02-23] MEDS: Acetylcysteine 10% 2 ML INHSOL IH SCH (04:12)
[2022-02-23] MEDS: *HR* Heparin 5,000 UNIT/ML VIAL SQ SCH (05:46)
[2022-02-23 05:48] LABS: Hematocrit 31.9 % (35.3-44.9); Hemoglobin 10.8 g/dL (11.5-15.4); Mean Corpuscular HGB Conc 33.9 g/dL (31.6-35.5); Mean Corpuscular Hemoglobin 28.2 pg (28.0-33.3); Mean Corpuscular Volume 83.3 fL (83.0-100.0); Mean Platelet Volume 9.3 fL (9.4-12.4); Platelet Count 219 K/mcL (140-400); Red Blood Count 3.83 M/mcL (3.82-4.97); Red Cell Distribution Width 12.8 % (11.5-14.5); White Blood Count 7.9 K/mcL (4.3-11.1)
[2022-02-23 06:12] LABS: BUN/Creatinine Ratio 26 (6-26); Blood Urea Nitrogen 24 mg/dL (6-20); Carbon Dioxide 24 mEq/L (23-29); Chloride 101 mEq/L (98-107); Glucose 262 mg/dL (70-105); Potassium 3.6 mEq/L (3.5-5.1); Sodium 134 mEq/L (136-145); eGFR For African Americans > 60 (> 60); eGFR For Non-African Americans > 60 (> 60)
[2022-02-23 06:13] LABS: Calcium 9.6 mg/dL (8.6-10.3); Magnesium 1.7 mg/dL (1.6-2.6); Osmolality,Calculated 291 (280-300)
[2022-02-23 06:41] VITALS: BP 132/85; PULSE 86; TEMP 98.3; O2SAT 94
[2022-02-23] MEDS: Fluticasone Propionate Nasal 50 MCG/SPRAY BOTTLE NS SCH (07:48)
[2022-02-23] MEDS: Magic Mouthwash 10 ML UD Cup PO SCH (07:48)
[2022-02-23] MEDS: Azithromycin 250 MG TABLET PO SCH (07:49)
[2022-02-23] MEDS: predniSONE 20 MG TABLET PO SCH (07:49)
[2022-02-23] MEDS: GuaiFENesin/Dextromethorphan TABLET PO SCH (07:49)
[2022-02-23] MEDS: Insulin LISPRO 300 UNITS/3 ML VIAL SUBQ SCH ×2 (07:50→07:51)
[2022-02-23] MEDS: BuPROPion SR (12 HR) 150 MG TABLET PO SCH (07:50)
[2022-02-23] MEDS: cefTRIAXone 1,000 MG in 0.9 % Sodium Chloride 10 ML IVP SCH (07:50)
[2022-02-23] MEDS: Insulin DETEMIR 100 UNIT/ML X5UNITS SUBQ SCH (07:50)
[2022-02-23] MEDS: Pregabalin 50 MG CAPSULE PO SCH (07:50)
== END 2022-02-23 10:14 | disposition home or self-care (01) ==
LOC: EMEROOARM 15:18 → 3BNU 15:18 → SUATTDRO 19:15 → 3BNU 20:45
PROVIDERS: ADMIT Internal Medicine; ATTEND Internal Medicine

== ENCOUNTER 2022-02-26 21:29 | Observation (INO) ==
[2022-02-27 00:54] LABS: Basophils # 0.1 K/mcL (0.0-0.2); Basophils % 0.5 %; Eosinophils # 0.3 K/mcL (0.0-0.6); Eosinophils % 1.5 %; Hematocrit 41.7 % (35.3-44.9); Immature Granulocytes % 1.6 % (0-4); Lymphocytes # 4.5 K/mcL (0.6-4.6); Lymphocytes % 25.5 %; Mean Corpuscular HGB Conc 34.3 g/dL (31.6-35.5); Mean Corpuscular Hemoglobin 28.3 pg (28.0-33.3); Mean Corpuscular Volume 82.6 fL (83.0-100.0); Mean Platelet Volume 8.7 fL (9.4-12.4); Monocytes # 0.6 K/mcL (0.0-1.3); Monocytes % 3.5 %; Platelet Count 377 K/mcL (140-400); Red Blood Count 5.05 M/mcL (3.82-4.97); Red Cell Distribution Width 13.2 % (11.5-14.5); Segmented Neutrophils % 67.4 %
[2022-02-27 00:55] LABS: Hemoglobin 14.3 g/dL (11.5-15.4); Neutrophils # 11.9 K/mcL (1.6-8.9); White Blood Count 17.7 K/mcL (4.3-11.1)
[2022-02-27 00:56] LABS: Bilirubin,Urine Negative (Negative); Blood,Urine Negative (Negative); Clarity,Urine Clear (Clear); Color,Urine Light-Yellow (Yellow); Glucose,Urine (UA) Normal (Normal); Ketones,Urine Negative (Negative); Leukocyte Esterase,Urine Negative (Negative); Nitrite,Urine Negative (Negative); PH,Urine 5.5 pH Units (5.0-8.0); Protein,Urine Negative (Neg-Trace); Specific Gravity,Urine 1.012 (1.010-1.025); Urobilinogen,Urine Normal (Normal)
[2022-02-27 01:12] LABS: Platelet Estimate Normal (Normal)
[2022-02-27 01:13] LABS: Calcium 9.6 mg/dL (8.6-10.3); Potassium 3.1 mEq/L (3.5-5.1)
[2022-02-27] MEDS ORDERED: 0.9 % Sodium Chloride 1,000 ML IVC ONE (01:40)
[2022-02-27] MEDS ORDERED: *HR* FentaNYL (PF) 100 MCG/2 ML VIAL IVP ONE (02:55)
[2022-02-27 03:40] LABS: Albumin 4.4 g/dL (3.5-5.7); Albumin/Globulin Ratio 1.5 (1.1-2.2); Bilirubin,Indirect 0.3 mg/dL (0.0-1.0); Bilirubin,Total 0.3 mg/dL (0.3-1.0); Total Protein 7.4 g/dL (6.4-8.9)
[2022-02-27] MEDS ORDERED: Naloxone 0.4 MG/ML INJ IVP PRN (04:05)
[2022-02-27] MEDS ORDERED: 0.9 % Sodium Chloride 1,000 ML IVC SCH (04:15)
[2022-02-27] MEDS ORDERED: *HR* Dextrose 50 % in Water (Syg) 50 ML SYRINGE IVP PRN (06:32)
[2022-02-27] MEDS ORDERED: D5% in Water 1,000 ML IVC PRN (06:32)
[2022-02-27] MEDS ORDERED: Dextrose 4 GM Chewable Tablets PO PRN ×2 (06:32)
[2022-02-27] MEDS ORDERED: Insulin LISPRO 300 UNITS/3 ML VIAL SUBQ SCH (07:30)
[2022-02-27] MEDS: Potassium Chloride Elixir 20 MEQ/15 ML UDC PO SCH (09:10)
[2022-02-27] MEDS: Insulin LISPRO 300 UNITS/3 ML VIAL SUBQ SCH ×3 (09:48→20:58)
[2022-02-27] MEDS: *HR* OxyCODONE/APAP 5/325 TABLET PO PRN ×2 (10:00→16:02)
[2022-02-27] MEDS: Insulin DETEMIR 100 UNIT/ML X5UNITS SUBQ SCH ×2 (10:21→21:00)
[2022-02-27] MEDS: *HR* OxyCODONE/APAP 10/325 TABLET PO PRN ×2 (13:10→20:59)
[2022-02-27] MEDS: *HR* Heparin 5,000 UNIT/ML VIAL SQ SCH ×2 (13:10→20:58)
[2022-02-27] MEDS: Ringers Solution, Lactated 1,000 ML IVC SCH ×2 (13:10→23:20)
[2022-02-27 16:36] LABS: Basophils # 0.1 K/mcL (0.0-0.2); Basophils % 0.4 %; Eosinophils # 0.3 K/mcL (0.0-0.6); Eosinophils % 2.9 %; Hematocrit 35.6 % (35.3-44.9); Immature Granulocytes % 1.3 % (0-4); Lymphocytes # 3.6 K/mcL (0.6-4.6); Lymphocytes % 31.4 %; Mean Corpuscular Hemoglobin 27.8 pg (28.0-33.3); Mean Corpuscular Volume 81.7 fL (83.0-100.0); Monocytes # 0.5 K/mcL (0.0-1.3); Monocytes % 4.7 %; Neutrophils # 6.8 K/mcL (1.6-8.9); Platelet Count 301 K/mcL (140-400); Red Blood Count 4.36 M/mcL (3.82-4.97); Red Cell Distribution Width 13.1 % (11.5-14.5); Segmented Neutrophils % 59.3 %; White Blood Count 11.4 K/mcL (4.3-11.1)
[2022-02-27 16:37] LABS: Hemoglobin 12.1 g/dL (11.5-15.4)
[2022-02-27 16:54] LABS: Magnesium 1.9 mg/dL (1.6-2.6); Phosphorous 3.3 mg/dL (2.7-4.5)
[2022-02-27 17:20] LABS: Potassium 3.9 mEq/L (3.5-5.1)
[2022-02-27 17:21] LABS: Alanine Aminotransferase 11 Units/L (7-52); Albumin 3.7 g/dL (3.5-5.7); Albumin/Globulin Ratio 1.3 (1.1-2.2); Alkaline Phosphatase 96 Units/L (34-104); Aspartate Amino Transferase 13 Units/L (13-39); BUN/Creatinine Ratio 30 (6-26); Bilirubin,Total 0.4 mg/dL (0.3-1.0); Blood Urea Nitrogen 34 mg/dL (6-20); Calcium 9.1 mg/dL (8.6-10.3); Carbon Dioxide 26 mEq/L (23-29); Chloride 100 mEq/L (98-107); Globulin 2.9 g/dL (2.4-3.5); Glucose 207 mg/dL (70-105); Osmolality,Calculated 290 (280-300); Sodium 133 mEq/L (136-145); Total Protein 6.6 g/dL (6.4-8.9); eGFR For African Americans > 60 (> 60); eGFR For Non-African Americans 51 (> 60)
[2022-02-27 19:48] LABS: Sodium, Urine 70.7 mEq/L
[2022-02-28] MEDS: *HR* Heparin 5,000 UNIT/ML VIAL SQ SCH ×3 (05:43→20:59)
[2022-02-28 06:53] LABS: Basophils # 0.1 K/mcL (0.0-0.2); Basophils % 0.5 %; Eosinophils # 0.4 K/mcL (0.0-0.6); Eosinophils % 3.9 %; Hematocrit 34.7 % (35.3-44.9); Hemoglobin 11.7 g/dL (11.5-15.4); Lymphocytes # 3.7 K/mcL (0.6-4.6); Lymphocytes % 34.8 %; Mean Corpuscular HGB Conc 33.7 g/dL (31.6-35.5); Mean Corpuscular Hemoglobin 27.9 pg (28.0-33.3); Mean Corpuscular Volume 82.8 fL (83.0-100.0); Mean Platelet Volume 8.9 fL (9.4-12.4); Monocytes # 0.5 K/mcL (0.0-1.3); Monocytes % 4.7 %; Neutrophils # 5.8 K/mcL (1.6-8.9); Platelet Count 273 K/mcL (140-400); Red Blood Count 4.19 M/mcL (3.82-4.97); Red Cell Distribution Width 13.3 % (11.5-14.5); Segmented Neutrophils % 55.1 %; White Blood Count 10.5 K/mcL (4.3-11.1)
[2022-02-28] MEDS: Potassium Chloride Elixir 20 MEQ/15 ML UDC PO SCH (08:14)
[2022-02-28] MEDS: Insulin DETEMIR 100 UNIT/ML X5UNITS SUBQ SCH ×2 (08:14→21:01)
[2022-02-28] MEDS: Ringers Solution, Lactated 1,000 ML IVC SCH ×2 (08:15→18:30)
[2022-02-28] MEDS: Insulin LISPRO 300 UNITS/3 ML VIAL SUBQ SCH ×4 (08:15→21:01)
[2022-02-28 09:02] LABS: Albumin 3.6 g/dL (3.5-5.7); BUN/Creatinine Ratio 23 (6-26); Blood Urea Nitrogen 23 mg/dL (6-20); C-Reactive Protein 21 mg/L (Less than 10); Calcium 9.4 mg/dL (8.6-10.3); Carbon Dioxide 27 mEq/L (23-29); Chloride 99 mEq/L (98-107); Creatine Kinase 240 Units/L (30-223); Glucose 174 mg/dL (70-105); Magnesium 1.7 mg/dL (1.6-2.6); Osmolality,Calculated 288 (280-300); Phosphorous 3.1 mg/dL (2.7-4.5); Potassium 4.2 mEq/L (3.5-5.1); Sodium 135 mEq/L (136-145); eGFR For African Americans > 60 (> 60); eGFR For Non-African Americans 57 (> 60)
[2022-02-28 09:10] LABS: Thyroid Stimulating Hormone 1.301 mcIU/mL (0.340-5.600)
[2022-02-28 09:25] LABS: Complement C3 193 mg/dL (87-200)
[2022-02-28 10:18] LABS: Alanine Aminotransferase 11 Units/L (7-52); Albumin 3.5 g/dL (3.5-5.7); Albumin/Globulin Ratio 1.3 (1.1-2.2); Alkaline Phosphatase 84 Units/L (34-104); Aspartate Amino Transferase 16 Units/L (13-39); BUN/Creatinine Ratio 24 (6-26); Bilirubin,Total 0.4 mg/dL (0.3-1.0); Blood Urea Nitrogen 24 mg/dL (6-20); Calcium 9.3 mg/dL (8.6-10.3); Carbon Dioxide 27 mEq/L (23-29); Chloride 99 mEq/L (98-107); Globulin 2.6 g/dL (2.4-3.5); Glucose 171 mg/dL (70-105); Osmolality,Calculated 288 (280-300); Potassium 4.3 mEq/L (3.5-5.1); Sodium 135 mEq/L (136-145); Total Protein 6.1 g/dL (6.4-8.9); eGFR For African Americans > 60 (> 60); eGFR For Non-African Americans 56 (> 60)
[2022-02-28] MEDS: Ondansetron 4 MG/2 ML VIAL IVP PRN (11:07)
[2022-02-28 11:50] LABS: Adenovirus F 40/41 PCR Not detected (Not detect); Astrovirus PCR Not detected (Not detect); Campylobacter by PCR Not detected (Not detect); Cryptosporidium by PCR Not detected (Not detect); Cyclospora cayetanensis PCR Not detected (Not detect); E. coli O157 by PCR Not detected (Not detect); Entamoeba histolytica PCR Not detected (Not detect); Enteroaggregative E.coli(EAEC) Not detected (Not detect); Enteropathogenic E.coli(EPEC) Not detected (Not detect); Enterotoxigenic E.coli (ETEC) Not detected (Not detect); Giardia lamblia PCR Not detected (Not detect); Norovirus GI/GII PCR Not detected (Not detect); Plesiomonas shigelloides PCR Not detected (Not detect); Rotavirus A PCR Not detected (Not detect); Salmonella PCR Not detected (Not detect); Sapovirus PCR Not detected (Not detect); Shig/EnteroinvasiveE coli EIEC Not detected (Not detect); Shigalike tox-prod E coli STEC Not detected (Not detect); Vibrio PCR Not detected (Not detect); Vibrio cholerae PCR Not detected (Not detect); Yersinia enterocolitica PCR Not detected (Not detect)
[2022-02-28 11:53] LABS: C.difficile Toxin A/B Gene PCR DETECTED (Not detect)
[2022-02-28] MEDS ORDERED: 0.9 % Sodium Chloride 1,000 ML IVC SCH (12:00)
[2022-02-28] MEDS: Vancomycin Oral Soln 125 MG/2.5 ML UDC PO SCH ×3 (13:09→20:59)
[2022-02-28] MEDS ORDERED: Perflutren Lipid Microsphere 1.3 ML in 0.9 % Sodium Chloride 8.7 ML IVP PRN (16:04)
[2022-02-28] MEDS: *HR* OxyCODONE/APAP 10/325 TABLET PO PRN (21:10)
[2022-02-28] MEDS ORDERED: *HR* LORazepam 2 MG/ML VIAL IVP ONE (21:39)
[2022-02-28] MEDS ORDERED: ALPRAZolam 1 MG TABLET PO PRN (23:06)
[2022-02-28] MEDS ORDERED: (Diclofenac Sodium [Voltaren] 100 GM Gel..Gram.) TP PRN (23:06)
[2022-02-28] MEDS ORDERED: Albuterol 2.5 MG/3 ML NEBULIZER IH PRN (23:06)
[2022-03-01] MEDS: Ringers Solution, Lactated 1,000 ML IVC SCH (04:34)
[2022-03-01] MEDS: *HR* Heparin 5,000 UNIT/ML VIAL SQ SCH (04:35)
[2022-03-01 07:08] LABS: Basophils % 0.3 %; Eosinophils # 0.3 K/mcL (0.0-0.6); Eosinophils % 3.7 %; Hematocrit 32.6 % (35.3-44.9); Immature Granulocytes % 0.8 % (0-4); Lymphocytes # 2.8 K/mcL (0.6-4.6); Lymphocytes % 32.2 %; Mean Corpuscular HGB Conc 33.7 g/dL (31.6-35.5); Mean Corpuscular Hemoglobin 28.2 pg (28.0-33.3); Mean Corpuscular Volume 83.6 fL (83.0-100.0); Mean Platelet Volume 9.2 fL (9.4-12.4); Monocytes # 0.5 K/mcL (0.0-1.3); Monocytes % 5.4 %; Neutrophils # 5.1 K/mcL (1.6-8.9); Platelet Count 225 K/mcL (140-400); Red Cell Distribution Width 13.1 % (11.5-14.5); Segmented Neutrophils % 57.6 %; White Blood Count 8.8 K/mcL (4.3-11.1)
[2022-03-01 07:20] LABS: Alanine Aminotransferase 9 Units/L (7-52); Albumin 3.5 g/dL (3.5-5.7); Albumin/Globulin Ratio 1.3 (1.1-2.2); Alkaline Phosphatase 79 Units/L (34-104); Aspartate Amino Transferase 10 Units/L (13-39); BUN/Creatinine Ratio 15 (6-26); Bilirubin,Total 0.3 mg/dL (0.3-1.0); Blood Urea Nitrogen 15 mg/dL (6-20); Calcium 9.3 mg/dL (8.6-10.3); Carbon Dioxide 32 mEq/L (23-29); Chloride 98 mEq/L (98-107); Globulin 2.6 g/dL (2.4-3.5); Glucose 226 mg/dL (70-105); Osmolality,Calculated 290 (280-300); Sodium 136 mEq/L (136-145); Total Protein 6.1 g/dL (6.4-8.9); eGFR For African Americans > 60 (> 60); eGFR For Non-African Americans 60 (> 60)
[2022-03-01] MEDS: Potassium Chloride Elixir 20 MEQ/15 ML UDC PO SCH (07:49)
[2022-03-01] MEDS: Vancomycin Oral Soln 125 MG/2.5 ML UDC PO SCH ×2 (07:53→12:12)
[2022-03-01] MEDS: Ondansetron 4 MG/2 ML VIAL IVP PRN (08:03)
[2022-03-01] MEDS: Insulin LISPRO 300 UNITS/3 ML VIAL SUBQ SCH ×2 (08:06→12:13)
[2022-03-01] MEDS: Insulin DETEMIR 100 UNIT/ML X5UNITS SUBQ SCH (08:06)
[2022-03-01] MEDS ORDERED: Fluticasone Propionate Nasal 50 MCG/SPRAY BOTTLE NS SCH (09:00)
[2022-03-01] MEDS ORDERED: Losartan/HCTZ 50-12.5 TABLET PO SCH (09:00)
[2022-03-01] MEDS ORDERED: BuPROPion SR (12 HR) 150 MG TABLET PO SCH (09:00)
[2022-03-01] MEDS ORDERED: Cholecalciferol (D-3) 1,000 UNIT (25MCG) TABLET PO SCH (09:00)
[2022-03-01] MEDS ORDERED: Pregabalin 50 MG CAPSULE PO SCH (09:00)
[2022-03-01] MEDS ORDERED: Furosemide 40 MG TABLET PO SCH (09:00)
[2022-03-01 10:41] VITALS: BP 130/85; PULSE 62; TEMP 98.2; O2SAT 95
[2022-03-01] MEDS: *HR* OxyCODONE/APAP 10/325 TABLET PO PRN (10:53)
[2022-03-02 10:35] LABS: Kappa Qnt Free Light Chains 14.57 mg/L (3.30-19.40)
[2022-03-02 10:36] LABS: Lambda Qnt Free Light Chains 13.62 mg/L (5.71-26.30)
[2022-03-03 06:40] LABS: Alpha 2 Globulin (PEP) 1.02 g/dL (0.48-1.05); Beta Globulin (PEP) 0.96 g/dL (0.48-1.10)
[2022-03-03 07:30] LABS: IFE Reflexed NOT DONE
== END 2022-03-01 14:43 | disposition home or self-care (01) ==
LOC: 3BNU 21:29 → EMEROOARM 21:29 → SUATTDRO 02-27 03:52 → 3BNU 02-27 04:22
PROVIDERS: ADMIT Internal Medicine; ATTEND Nurse Practitioner